=== PATIENT | male | born 1940 | race Caucasian/White ===

== ENCOUNTER → 2016-12-09 | Outpatient (CLI) | payer OTHER ==
[~2016-12-09] MED LIST: ASPI325T39 PO; ATOR-24 PO; GADAVIST IV PRN; GLUCTAB7 PO; METO50TA7 PO; OMEGCAP2 PO; PRED1SUS3 OPL; VALS160T60 PO
--- NOTE | 2016-12-09 07:47 | DIAGNOSTIC IMAGING REPORT ---
MRI OF THE BRAIN COMBO TRIGEMINAL NERVE PROTOCOL CLINICAL HISTORY: Atypical right facial pain. COMPARISON STUDY: CT scan of the paranasal sinuses dated 10/29/2013. TECHNIQUE: MRI of the brain was performed utilizing various T1 and T2-weighted sequences in the axial, sagittal, and coronal planes. Contrast-enhanced sequences were acquired following the administration of 9 cc of Gadavist. Additional high-resolution imaging was performed through the skull base both pre and post contrast to further assess the trigeminal nerves. FINDINGS: Brain parenchyma: There are age-related involutional changes noting mild patchy subcortical and periventricular microangiopathic disease. There is no hemorrhage or mass effect. There is no restricted diffusion to suggest acute ischemia. No enhancing mass lesion is identified on the postcontrast images. Ingram-white matter differentiation is preserved. No extra-axial fluid collection is seen. The cerebellar tonsils are normal in configuration. Ventricles, sulci, and cisterns: Prominent secondary to involutional change. Trigeminal nerves: The trigeminal nerves appear normal and symmetric. No abnormal enhancement is identified on the postcontrast images. Pituitary and sella: Unremarkable. Intracranial vasculature: Normal flow voids are maintained at the skull base. Orbits: The bony orbits are grossly intact. Orbital contents are normal in appearance noting bilateral ocular lens implants. Sinuses and mastoids: Clear. Calvarium: Unremarkable. Cervical cord: Partially visualized cervical spinal cord is normal in morphology and signal intensity. IMPRESSION: 1. No acute intracranial abnormal abnormality. 2. Unremarkable MRI assessment of the trigeminal nerves. Electronically signed by: Fabio Pablo M.D. 12/09/2016 7:46 AM Dictated Date/Time: 12/09/2016 7:41 AM
== END | disposition home or self-care (01) ==
LOC: C.MRI 06:12
PROVIDERS: ATTEND Psychiatry & Neurology Neurology
DX: G50.1 Atypical facial pain (principal)

== ENCOUNTER → 2017-03-19 | Outpatient (CLI) | payer OTHER ==
[~2017-03-19] MED LIST changes: -GADAVIST IV PRN
[2017-03-19 12:07] LABS: BASO % 0.6 %; BASO ABS # 0.05 K/uL (0-0.2); COMPLETE YES; EOS % 4.5 %; HEMATOCRIT 42.4 % (42-52); IG% 0.5 %; LYMPH % 29.5 %; LYMPH ABS # 2.43 K/uL (1.2-3.4); MEAN CELL VOLUME 89.6 fL (80-100); MEAN CORPUSCULAR HEMOGLOBIN 29.6 pg (25-34); MEAN PLATELET VOLUME 9.9 fL (7.4-10.4); MONO % 10.3 %; NEUT % 54.6 %; PLATELET COUNT 244 K/uL (130-400); RED BLOOD COUNT 4.73 M/uL (4.7-6.1); WHITE BLOOD COUNT 8.24 K/uL (4.8-10.8)
[2017-03-19 12:30] LABS: ESTIMATED AVERAGE GLUCOSE 117 mg/dl; HA1C FLAG Normal (Normal)
[2017-03-19 13:00] LABS: BLOOD UREA NITROGEN 22 mg/dl (7-18); BUN/CREATININE RATIO 24.9 (10-20); CALCIUM 9.1 mg/dl (8.5-10.1); CARBON DIOXIDE 33 mmol/L (21-32); CHLORIDE 102 mmol/L (98-107); CREATININE 0.89 mg/dl (0.60-1.40); GLUCOSE 95 mg/dl (70-99); SODIUM 140 mmol/L (136-145)
== END | disposition home or self-care (01) ==
LOC: C.LABBFT 09:17
PROVIDERS: ATTEND Internal Medicine Geriatric Medicine
DX: I10 Essential (primary) hypertension (principal); R73.9 Hyperglycemia, unspecified; M19.90 Unspecified osteoarthritis, unspecified site

== ENCOUNTER → 2018-06-10 | Outpatient (CLI) | payer OTHER ==
[~2018-06-10] MED LIST changes: -METO50TA7 PO; +METO50TA8 PO
[2018-06-10 12:34] LABS: BASO % 0.6 %; BASO ABS # 0.05 K/uL (0-0.2); EOS % 5.3 %; EOS ABS # 0.43 K/uL (0-0.5); HEMATOCRIT 41.8 % (42-52); HEMOGLOBIN 14.1 g/dL (14.0-18.0); IG# 0.02 K/uL (0.00-0.02); LYMPH ABS # 2.53 K/uL (1.2-3.4); MEAN CELL VOLUME 88.6 fL (80-100); MEAN CORPUSCULAR HEMOGLOBIN 29.9 pg (25-34); MEAN CORPUSCULAR HGB CONC 33.7 g/dl (32-36); MEAN PLATELET VOLUME 10.4 fL (7.4-10.4); MONO % 8.3 %; MONO ABS # 0.68 K/uL (0.11-0.59); NEUT % 54.6 %; NEUT ABS # 4.46 K/uL (1.4-6.5); PLATELET COUNT 242 K/uL (130-400); RED CELL DISTRIBUTION WIDTH CV 13.3 % (11.5-14.5); RED CELL DISTRIBUTION WIDTH SD 43.5 fL (36.4-46.3); WHITE BLOOD COUNT 8.17 K/uL (4.8-10.8)
[2018-06-10 13:02] LABS: ALBUMIN 3.7 gm/dl (3.4-5.0); ALKALINE PHOSPHATASE 69 U/L (45-117); ALT/SGPT 23 U/L (12-78); AST/SGOT 22 U/L (15-37); BLOOD UREA NITROGEN 28 mg/dl (7-18); CALCIUM 9.1 mg/dl (8.5-10.1); CARBON DIOXIDE 31 mmol/L (21-32); CHOLESTEROL 81 mg/dl (0-200); CREATININE 0.99 mg/dl (0.60-1.40); GLUCOSE 92 mg/dl (70-99); LDL CHOLESTEROL CALCULATED 32 mg/dl; POTASSIUM 4.3 mmol/L (3.5-5.1); SODIUM 136 mmol/L (136-145); TOTAL PROTEIN 6.9 gm/dl (6.4-8.2)
== END | disposition home or self-care (01) ==
LOC: C.LABBFT 09:42
PROVIDERS: ATTEND Internal Medicine Geriatric Medicine
DX: D47.2 Monoclonal gammopathy (principal); I25.10 Atherosclerotic heart disease of native coronary artery without angina pectoris; I10 Essential (primary) hypertension; E78.5 Hyperlipidemia, unspecified; R73.9 Hyperglycemia, unspecified; G50.0 Trigeminal neuralgia

== ENCOUNTER 2021-01-01 07:47 | Observation (INO) ==
[2021-01-01] MEDS ORDERED: fentaNYL citrate 100 MCG/2 ML VIAL IV STA (07:52)
[2021-01-01] MEDS ORDERED: MIDAZOLAM HCL 5 MG/ML 1 ML VIAL IV STA (07:52)
[2021-01-01] MEDS ORDERED: ONDANSETRON INJ 2 MG/ML 2 ML VIAL IV STA (07:52)
[2021-01-01] MEDS ORDERED: SODIUM CHLORIDE 0.9% 500 ML IV ONE (07:52)
[2021-01-01] MEDS ORDERED: MIDAZOLAM HCL 1 MG/ML 2ML VIAL ONE (07:59)
[2021-01-01] MEDS ORDERED: HYDROmorphone INJ 0.5 MG/0.5 ML SYR IV PRN ×2 (08:40→11:16)
[2021-01-01] MEDS ORDERED: ACETAMINOPHEN 1,000 MG/100 ML VIAL IV STA (08:40)
--- NOTE | 2021-01-01 08:40 | Emergency Department Note ---
ED Visit Note PROCEDURE NOTE: Closed reduction left ankle fracture/dislocation Patient is an 80-year-old male brought to the emergency department by ambulance for evaluation of a left ankle injury with obvious deformity. I was asked by Dr. Ko to perform closed reduction of the left ankle fracture/dislocation. Conscious sedation was administered by Dr. Ko, please refer to his separate notes for further details. When patient was adequately sedated, the lower leg was stabilized then the ankle grasped, axial traction applied, with gentle slide medially. The deformity was immediately reduced, but ankle was still grossly unstable. Great care was taken to try to stabilize the fracture while Orthoglas splint was applied, both a sugar tong and stirrup splint were applied. Ankle was held in dorsiflexion, with pressure held medially and laterally until the Ortho-Glass was set. Post reduction x-rays were obtained, still noting displaced fractures of the medial and lateral malleolus. Splint placement was verified by me and was satisfactory. Patient remained neurovascularly intact. Patient tolerated the procedure well. .
--- NOTE | 2021-01-01 08:41 | Emergency Department Note ---
History of Present Illness General Chief complaint: Fall Time Seen by Provider: 01/01/21 07:48 Source: patient, EMS, RN notes reviewed and old records reviewed Mode of arrival: EMS Limitations: no limitations History of Present Illness Provider complaint: fall, ankle pain Onset (ago): hour(s) less than 1 Location: lower extremity and left Radiation: non-radiation Severity: mild Pain Consistency: + now resolved Maximum Pain Intensity: 0 Current Pain Intensity: 0 Quality: + aching Relieved By: + immobilization Exacerbated By: + movement Associated symptoms: no chest pain, no fever/chills, no headaches, no nausea/vomiting, no shortness of breath and no weakness Treatments prior to arrival: none This is an 80-year-old male who presents emergency department via ambulance. The patient reports he was walking on ice when he slipped. He is complaining of left ankle pain which is also grossly deformed. The patient reports he has never broken a bone before however he has had knee surgery performed by [facility]. He reports he has not taken anything for the pain. He denies hitting his head or any other injury. He reports movement makes the pain worse however immobilization makes it better. Home Medications Medication Instructions Recorded Confirmed Type sljpolzqibz-[id number]-[id number] 1 cap PO DAILY cap 04/20/19 01/01/21 History supplement#13 348 mg-300 mg capsule aspirin 325 mg tablet,delayed 325 mg PO DAILY tab 07/07/19 01/01/21 History release omega-3 acid ethyl esters 1 gram 1 cap PO BID cap 07/07/19 01/01/21 History capsule valsartan 160 1 tab PO DAILY #90 tab 01/14/20 01/01/21 Rx mg-hydrochlorothiazide 25 mg tablet gabapentin 300 mg capsule 600 mg PO QID cap 01/17/20 01/01/21 History atorvastatin 40 mg tablet 40 mg PO DAILY #90 tab 03/03/20 01/01/21 Rx nitroglycerin 0.4 mg sublingual 0.4 mg SL Q5M PRN #25 tab 07/28/20 01/01/21 Rx tablet amoxicillin 500 mg capsule 2,000 mg PO .COMPLEX #4 cap 10/02/20 01/01/21 Rx metoprolol tartrate 50 mg tablet 50 mg PO DAILY #90 tab 11/22/20 01/01/21 Rx mirabegron [Myrbetriq] 0 mg PO QAM 01/01/21 01/01/21 History Allergies Allergy/AdvReac Type Severity Reaction Status Date / Time lisinopril AdvReac Mild Cough Verified 01/01/21 12:27 Past Med/Surg History Medical History (Updated 01/02/21 @ 06:50 by Yasir Ko MD) Back pain Benign enlargement of prostate CAD (coronary artery disease) HTN (hypertension) Hyperglycemia Injury of left hand MGUS (monoclonal gammopathy of unknown significance) Peripheral neuropathy Rosacea Trigeminal neuralgia Surgical History History of carpal tunnel release of both wrists 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 with WALLER graft S/P inguinal hernia repair S/P knee replacement S/P tonsillectomy Family History Mother Hypertension Heart disease Diabetes Brother Parkinson disease Father Heart disease Social History Smoking Status: Never smoker Do You Dip or Chew Tobacco: No; Hx Alcohol Use: Yes Alcohol type: beer Hx Substance Use: No Preferred Language: Bel[place]an Communication Ability: Effective Visual Impairment: No Limitations Hearing Ability: Normal Postie Required: No Beliefs That Will Affect Care: None marital status: Current Living Situation: Spouse and Family Current Living Situation Comment: Daughter current occupational status: retired Other Information That Helps Us Care for You: No Feels Safe at Home: Yes Safety Concerns: Feels Safe At This Time caffeine: No Seatbelt Use: always Sunscreen Use: Yes Assistive Devices: Walker Review of Systems A total of 10 systems reviewed and were otherwise negative Physical Exam Vital Signs Vital Signs - 24 hr 01/01/21 07:54 01/01/21 08:00 01/01/21 08:05 Temperature 36.5 C Temperature Source Oral Pulse Rate 80 89 Pulse Rate [Apical] Pulse Rhythm Regular Pulse Rhythm [Apical] Pulse Strength Normal Pulse Strength [Apical] Respiratory Rate 20 24 Respiratory Effort / Characteristics Non-Labored Spontaneous Non-Labored Spontaneous Non-Labored Spontaneous Respiratory Depth Normal Deep Respiratory Pattern Regular Regular Regular Blood Pressure 174/83 H Blood Pressure [Right Arm] 174/83 H 177/82 H Blood Pressure Mean 113 Blood Pressure Mean [Right Arm] Blood Pressure Position Sitting Blood Pressure Position [Right Arm] Pulse Oximetry 93 95 90 Oxygen Delivery Method Room Air Room Air Nasal Cannula Oxygen Flow Rate 6 Sepsis Recent Fever Within 48 Hours No Sepsis New/Unexplained Change in Mental Status No Sepsis Action Taken by Nursing No Action Required End Tidal CO2 (18-54mmHg) 42 43 01/01/21 08:10 01/01/21 08:15 01/01/21 08:20 Temperature Temperature Source Pulse Rate 75 66 70 Pulse Rate [Apical] Pulse Rhythm Pulse Rhythm [Apical] Pulse Strength Pulse Strength [Apical] Respiratory Rate 14 12 12 Respiratory Effort / Characteristics Spontaneous Spontaneous Spontaneous Respiratory Depth Normal Normal Normal Respiratory Pattern Regular Regular Regular Blood Pressure Blood Pressure [Right Arm] 149/80 H 143/77 H 135/72 Blood Pressure Mean Blood Pressure Mean [Right Arm] Blood Pressure Position Blood Pressure Position [Right Arm] Pulse Oximetry 96 98 98 Oxygen Delivery Method Nasal Cannula Nasal Cannula Room Air Oxygen Flow Rate 2 Sepsis Recent Fever Within 48 Hours Sepsis New/Unexplained Change in Mental Status Sepsis Action Taken by Nursing End Tidal CO2 (18-54mmHg) 36 38 43 01/01/21 08:25 01/01/21 09:00 01/01/21 09:08 Temperature Temperature Source Pulse Rate 68 65 Pulse Rate [Apical] 65 Pulse Rhythm Regular Pulse Rhythm [Apical] Regular Pulse Strength Pulse Strength [Apical] Normal Respiratory Rate 20 18 18 Respiratory Effort / Characteristics Non-Labored Spontaneous Non-Labored Spontaneous Respiratory Depth Normal Normal Respiratory Pattern Regular Regular Blood Pressure Blood Pressure [Right Arm] 140/73 135/80 Blood Pressure Mean Blood Pressure Mean [Right Arm] 98 Blood Pressure Position Blood Pressure Position [Right Arm] Sitting Pulse Oximetry 95 96 Oxygen Delivery Method Room Air Room Air Room Air Oxygen Flow Rate Sepsis Recent Fever Within 48 Hours Sepsis New/Unexplained Change in Mental Status Sepsis Action Taken by Nursing End Tidal CO2 (18-54mmHg) 42 01/01/21 10:30 Temperature Temperature Source Pulse Rate Pulse Rate [Apical] 68 Pulse Rhythm Pulse Rhythm [Apical] Regular Pulse Strength Pulse Strength [Apical] Normal Respiratory Rate 18 Respiratory Effort / Characteristics Non-Labored Spontaneous Respiratory Depth Normal Respiratory Pattern Regular Blood Pressure Blood Pressure [Right Arm] 134/75 Blood Pressure Mean Blood Pressure Mean [Right Arm] 94 Blood Pressure Position Blood Pressure Position [Right Arm] Sitting Pulse Oximetry 95 Oxygen Delivery Method Room Air Oxygen Flow Rate Sepsis Recent Fever Within 48 Hours Sepsis New/Unexplained Change in Mental Status Sepsis Action Taken by Nursing End Tidal CO2 (18-54mmHg) VITAL SIGNS - Vital signs and nursing notes were reviewed. GENERAL - 80-year-old male appearing stated age who is in no acute distress. Communicates well with provider and answers questions appropriately. SKIN - Without rashes. HEAD - NC/AT. EYES - PERRL with EOMI bilaterally. Sclera anicteric. Palpebral conjunctiva pink and moist with no injection noted. EARS - No deformities of external structures noted on gross examination bilaterally. NOSE - Midline and without cyanosis. No epistaxis or purulent drainage noted. Septum midline without deviation or septal hematoma noted. MOUTH/OROPHARYNX - Without perioral cyanosis. Buccal mucosa pink and moist and without leukoplakia. Tongue midline with equal elevation of palate bilaterally. No tonsillar hypertrophy, erythema, or exudates noted. dentition noted. NECK - Neck with FROM. Supple to palpation. lymphadenopathy noted. No nuchal r igidity. LUNGS - Chest wall symmetric without accessory muscle use, intercostals retractions, or central cyanosis. Normal vesicular breath sounds CTA B/L. No wheezes, rales, or rhonchi appreciated. CARDIAC - RRR with S1/S2. No murmur, rubs, or gallops appreciated. ABDOMEN - Abdominal contour without pulsations or visible masses. BS normoactive all four quadrants. No tenderness, palpable masses, hepatosplenomegaly, or ascites noted. EXTREMITIES - Obvious deformity to left ankle. +3/5 radial, posterior tibial, and dorsalis pedis pulses palpated throughout. +5/5 strength noted in UE/LE katie aterally. NEUROLOGIC - Cranial nerves II through XII grossly intact. Sensory intact to light touch throughout. Patellar reflexes +2/4. PSYCH - A&Ox3 and cooperates fully with examiner. Pt is very pleasant and interacts well with examiner. Procedures Procedural Sedation Indication: fracture/dislocation reduction (I performed the procedure: total time 15 minutes) ASA Class: II Time of Last PO Intake: 07:00 Preparation: school bus monitor applied, pulse oximeter, capnometry used, supplemental O2 applied, reversal agents at bedside, suction/airway equipment at bedside and IV secured Fentanyl: IV Fentanyl dose (mcg): 50 Midazolam dose (mg): 1 Dosage Used (mgs): 2 Patient Tolerated Procedure: well and no complications Complications: none Course Administered Medications Aspirin (Aspirin 325 Mg Ectab) 325 mg PO DAILY [facility] Stop: 01/31/21 10:59 Last Admin: 01/01/21 12:21 Dose: Not Given Documented by: [id number] Atorvastatin Calcium (Atorvastatin 40 Mg Tab) 40 mg PO DAILY [facility] Stop: 01/31/21 10:59 Last Admin: 01/01/21 12:21 Dose: Not Given Documented by: [id number] Docusate Sodium (Docusate Sodium 100 Mg Cap) 100 mg PO BID [facility] Stop: 01/31/21 20:59 Last Admin: 01/01/21 20:27 Dose: 100 mg Documented by: [id number] Gabapentin (Gabapentin 300 Mg Cap) 600 mg PO QID [facility] Stop: 01/31/21 12:59 Last Admin: 01/01/21 20:26 Dose: 600 mg Documented by: [id number] Admin: 01/01/21 16:39 Dose: Not Given Documented by: [id number] Admin: 01/01/21 14:03 Dose: Not Given Documented by: [id number] Cefazolin Sodium (Ancef 2000mg) 2,000 mg in 15 mls @ 3.75 mls/min IV Q8H [facility]; Protocol Stop: 01/02/21 10:03 Last Admin: 01/02/21 01:03 Dose: 3.75 mls/min Documented by: [id number] Metoprolol Tartrate (Metoprolol Tartrate 50 Mg Tab) 50 mg PO DAILY [facility] Stop: 01/31/21 10:59 Last Admin: 01/01/21 12:21 Dose: Not Given Documented by: [id number] Sennosides (Senna 8.6 Mg Tab) 17.2 mg PO HS [facility] Stop: 01/31/21 20:59 Last Admin: 01/01/21 20:27 Dose: 17.2 mg Documented by: [id number] Discontinued Medications Bacitracin (Bacitracin Inj 50,000 Unit Vial) Confirm Administered Dose 50,000 units .ROUTE .STK-MED ONE Stop: 01/01/21 17:08 Last Admin: 01/01/21 18:06 Dose: 50,000 units Documented by: [id number] Fentanyl Citrate (Fentanyl Citrate 100 Mcg/2 Ml Vial) 100 mcg IV NOW STA Stop: 01/01/21 07:53 Last Admin: 01/01/21 08:04 Dose: 50 mcg Documented by: [id number] Sodium Chloride (Nss) 500 mls @ 999 mls/hr IV .Q31M ONE Stop: 01/01/21 08:22 Last Infusion: 01/01/21 08:23 Dose: 0 mls/hr Documented by: [id number] Admin: 01/01/21 08:03 Dose: 999 mls/hr Documented by: [id number] Acetaminophen (Ofirmev) 1,000 mg in 100 mls @ 400 mls/hr IV NOW STA Stop: 01/01/21 08:54 Last Infusion: 01/01/21 10:07 Dose: 0 mls/hr Documented by: [id number] Admin: 01/01/21 09:42 Dose: 400 mls/hr Documented by: [id number] Sodium Chloride (Nss 1000ml) 1,000 mls @ 80 mls/hr IV .[id number] [facility] Stop: 01/31/21 11:15 Last Infusion: 01/01/21 20:02 Dose: 0 mls/hr Documented by: [id number] Admin: 01/01/21 12:45 Dose: 80 mls/hr Documented by: [id number] Cefazolin Sodium (Ancef 2000mg) 2,000 mg in 15 mls @ 3.75 mls/min IV PREOP ONE Stop: 01/01/21 17:03 Last Admin: 01/01/21 20:00 Dose: Not Given Documented by: [id number] Sodium Chloride (Nss 1000ml) 1,000 mls @ 100 mls/hr IV .Q10H GOLD Stop: 01/02/21 06:00 Last Infusion: 01/02/21 05:32 Dose: 0 mls/hr Documented by: [id number] Admin: 01/01/21 20:01 Dose: 100 mls/hr Documented by: [id number] Midazolam HCl (Midazolam Hcl 5 Mg/Ml 1 Ml Vial) 2 mg IV NOW STA Stop: 01/01/21 07:53 Last Admin: 01/01/21 08:06 Dose: 2 mg Documented by: [id number] Midazolam HCl (Midazolam Hcl 1 Mg/Ml 2ml Vial) Confirm Administered Dose 2 mg .ROUTE .STK-MED ONE Stop: 01/01/21 08:00 Last Admin: 01/01/21 08:47 Dose: Not Given Documented by: [id number] Ondansetron HCl (Ondansetron Inj 2 Mg/Ml 2 Ml Vial) 4 mg IV NOW STA Stop: 01/01/21 07:53 Last Admin: 01/01/21 08:03 Dose: 4 mg Documented by: [id number] Medical Decision Making Differential Diagnosis Fracture, subluxation, dislocation, contusion, ligamentous injury, neurovascular, compartment syndrome, rhabdomyolysis, as well as other pathologies. Medical Records Attestation: I reviewed the patient's medical records. Home Medications Current Medication List: was personally reviewed by me Laboratory Data Attestation: I reviewed the patient's lab results. Result diagrams: 01/02/21 06:02 01/01/21 07:55 Lab Results 01/01/21 01/01/21 01/01/21 Range/Units 07:55 07:55 09:10 WBC 7.48 (4.8-10.8) K/uL RBC 4.59 L (4.7-6.1) M/uL Hgb 13.9 L (14.0-18.0) g/dL Hct 41.1 L (42-52) % MCV 89.5 (80-100) fL MCH 30.3 (25-34) pg MCHC 33.8 (32-36) g/dL RDW Std Deviation 43.0 (36.4-46.3) fL RDW Coeff of Agustín 13.2 (11.5-14.5) % Plt Count 248 (130-400) K/uL MPV 10.3 (7.4-10.4) fL Immature Gran % (Auto) 0.3 % Neut % (Auto) 58.2 % Lymph % (Auto) 25.0 % [place] % (Auto) 9.8 % Eos % (Auto) 6.3 % Baso % (Auto) 0.4 % Neut # (Auto) 4.36 (1.4-6.5) K/uL Lymph # (Auto) 1.87 (1.2-3.4) K/uL [place] # (Auto) 0.73 H (0.11-0.59) K/uL Eos # (Auto) 0.47 (0-0.5) K/uL Baso # (Auto) 0.03 (0-0.2) K/uL Immature Gran # (Auto) 0.02 (0.00-0.02) K/uL Sodium 141 (136-145) mmol/L Potassium 3.7 (3.5-5.1) mmol/L Chloride 104 (98-107) mmol/L Carbon Dioxide 31 (21-32) mmol/L Anion Gap 6.0 (3-11) BUN 26 H (7-18) mg/dl Creatinine 0.97 (0.6-1.4) mg/dl Est Cr Clr Drug Dosing 65.1 ml/min Est GFR ( Amer) 85.1 Est GFR (Non-Af Amer) 73.4 BUN/Creatinine Ratio 26.2 H (10-20) Glucose 94 (70-99) mg/dl Calcium 9.5 (8.5-10.1) mg/dl Total Bilirubin 0.4 (0.2-1) mg/dl AST 22 (15-37) U/L ALT 37 (12-78) U/L Alkaline Phosphatase 91 (45-117) U/L Total Protein 7.3 (6.4-8.2) gm/dl Albumin 3.7 (3.4-5.0) gm/dl Globulin 3.6 (2.5-4.0) gm/dl Albumin/Globulin Ratio 1.0 (0.9-2) Lipase 158 (73-393) U/L COVID-19 Eval Order Covid19 [facility] SARS-CoV-2, RNA, NAAT (NEGATIVE) 01/01/21 Range/Units 09:10 WBC (4.8-10.8) K/uL RBC (4.7-6.1) M/uL Hgb (14.0-18.0) g/dL Hct (42-52) % MCV (80-100) fL MCH (25-34) pg MCHC (32-36) g/dL RDW Std Deviation (36.4-46.3) fL RDW Coeff of Agustín (11.5-14.5) % Plt Count (130-400) K/uL MPV (7.4-10.4) fL Immature Gran % (Auto) % Neut % (Auto) % Lymph % (Auto) % [place] % (Auto) % Eos % (Auto) % Baso % (Auto) % Neut # (Auto) (1.4-6.5) K/uL Lymph # (Auto) (1.2-3.4) K/uL [place] # (Auto) (0.11-0.59) K/uL Eos # (Auto) (0-0.5) K/uL Baso # (Auto) (0-0.2) K/uL Immature Gran # (Auto) (0.00-0.02) K/uL Sodium (136-145) mmol/L Potassium (3.5-5.1) mmol/L Chloride (98-107) mmol/L Carbon Dioxide (21-32) mmol/L Anion Gap (3-11) BUN (7-18) mg/dl Creatinine (0.6-1.4) mg/dl Est Cr Clr Drug Dosing ml/min Est GFR ( Amer) Est GFR (Non-Af Amer) BUN/Creatinine Ratio (10-20) Glucose (70-99) mg/dl Calcium (8.5-10.1) mg/dl Total Bilirubin (0.2-1) mg/dl AST (15-37) U/L ALT (12-78) U/L Alkaline Phosphatase (45-117) U/L Total Protein (6.4-8.2) gm/dl Albumin (3.4-5.0) gm/dl Globulin (2.5-4.0) gm/dl Albumin/Globulin Ratio (0.9-2) Lipase (73-393) U/L COVID-19 Eval Order SARS-CoV-2, RNA, NAAT NEGATIVE (NEGATIVE) Imaging Data Radiologist's Impression: [facility], [place] [phone] XRay Report Patient: SANDRA ELDRIDGE Admit Date: 01/01/21 MR#: [id number] Address1: [address] [place] [address] Acct ID:[id number] Address2: Date: [address] [facility] Zip: [place] [address] Age: 80 Location: ED Sex: M Room/Bed: Att Phy: Diagnosis: FALL Dora Phy: Yunier Rangel III, MD Service Date: 01/01/21 Fam Phy: Interpreting Phy: Tiago Burch Admit Phy: Ordering Phy: Yasir Ko MD cc: ~ XR ankle LT min 3V routine, XR tibia fibula LT 2V HISTORY: 80 years-old Male Pt c/o left ankle pain acute fracture of the left ankle COMPARISON: None TECHNIQUE: 3 views of the left ankle with 2 views of the left tibia and fibula FINDINGS: ANKLE: Acute fractures of the medial and lateral malleoli. The lateral malleolus fracture fragment is displaced laterally 9 mm. The medial malleolar fracture fragment is displaced laterally 7 mm. Pathologic widening at the distal tibiofibular syndesmosis. There is equivocal fracture of the posterior malleolus. Moderate soft tissue swelling. Spurring of the calcaneus. Overlying casting material limits the study. TIBIA/FIBULA: Left knee total joint arthroplasty. Acute fractures of the medial and lateral malleoli. Surgical clips project over the medial tissues. No additional acute fracture or dislocation. IMPRESSION: 1. Acute displaced fractures of the medial and lateral malleoli with equivocal posterior malleolus fracture. 2. Pathologic widening of the distal tibiofibular syndesmosis. ACT 112: Negative or not required by law. The above report was generated using voice recognition software. It may contain grammatical, syntax or spelling errors. Electronically signed by: Mason Burch M.D. 01/01/2021 8:45 AM Dictated: 01/01/21829 Transcribed: 01/01/21830 ECG Data Attestation: I personally reviewed and interpreted this ECG as follows: Indication: + other Rate (beats per minute): 68 Rhythm: + sinus rhythm ECG Intervals/blocks: + Normal QT-c (450) ECG [place]: + Normal ECG ST segments: no ST depression and no ST elevation ECG Findings: + PACs Comparison ECG Date: from (03/26/2014) MDM Narrative Patient was seen and evaluated as above in room B2. Review was performed of nursing notes and vital signs. I did review pertinent previous visits and patient history. After obtaining a thorough history and physical examination the above work up was performed. This is an 80-year-old male who presents to the emergency department with an obvious dislocation of his ankle. Due to the emergent nature, conscious sedation was emergently performed to get the ankle into better alignment. Please see Reba Johnson's notes for reduction. Despite the reduction the ankle still needs further alignment. Because of this I did discuss the case with [facility] who requested that the patient be admitted to the hospital. I did discuss all my findings with the patient's who is in agreement with the treatment plan along with the patient. Conscious sedation was performed as above. An order was placed for continuous cardiac monitoring. The monitor shows a rate of 74 with Normal Sinmus rhythm. The patient was evaluated during a period of high volume and high acuity while the hospital was at overcapacity during the global COVID-19 pandemic, and that diagnosis was suspected/considered upon their initial presentation. Their evaluation, treatment and testing was consistent with current guidelines for patients who present with complaints or symptoms that may be related to COVID- 19. Impression & Plan Ankle fracture, left, Dislocation of ankle, left, closed Discharge Plan Visit Data Chief Complaint: Fall ED Provider: Yasir Ko Discharge Problem: Ankle fracture, left, Dislocation of ankle, left, closed Patient Disposition: Admitted As Inpatient Discharge Instructions Interventions: ED Discharge Assessment Last Done: 01/01/21 11:37 Discharge Problem: Ankle fracture, left Qualifiers: Encounter type: initial encounter Fracture type: closed Qualified Code(s): S82.892A - Other fracture of left lower leg, initial encounter for closed fracture Dislocation of ankle, left, closed Qualifiers: Encounter type: initial encounter Qualified Code(s): S93.05XA - Dislocation of left ankle joint, initial encounter
--- NOTE | 2021-01-01 08:42 | Emergency Department Note ---
ED Visit Note The planned sedation has been discussed with the patient. Informed Consent was obtained. I have identified the patient, determined the appropriateness of sedation and have assessed the patient immediately prior to the procedure. All medicine(s) and interventions are by my order. .
--- NOTE | 2021-01-01 08:42 | Emergency Department Note ---
ED Visit Note On clinical assessment, the patient appears to have tolerated the sedation without complications. Patient is recovering as anticipated. Patient will continue to be monitored by nursing and may be discharged when sedation discharge criteria are met per below protocol. Upon Completions of procedure up to 15 minutes continue every 5 minute vital s igns and the P.A.R. score; then discharge to a Phase I or Fast Track to Phase II per the following guidelines: * Discharge Patient to appropriate Phase II area if PAR is 8 or greater or return to pre- procedure baseline. The post - procedure orders will be as directed. * If PAR score is less than 8 or not return to pre-procedure baseline then patient will follow Phase I monitoring till PAR is reached for Phase II. The Phase I may be done in procedure room or may call to secure a Phase I area. * If naloxone or flumazenil are used for reversal, hold in Phase I for continued monitoring from when last reversal dose was given for a minimum of 60 minutes or longer pending the nurse and/or physician discretion of patient condition before discharge to Phase II. Please call the Sedation Physician to re-evaluate and complete post-note for discharge to Phase II area. Do NOT discharge from procedure sedation or Phase 1 until post- sedation evaluation note is complete by procedure /sedation MD Sedation Discharge Instructions to be given to the patient at discharge to home. .
[2021-01-01 08:45] LABS: Basophils # (auto) 0.03 K/uL (0-0.2); Basophils % (auto) 0.4 %; Eosinophils # (auto) 0.47 K/uL (0-0.5); Eosinophils % (auto) 6.3 %; Hematocrit (blood only) 41.1 % (42-52); Hemoglobin 13.9 g/dL (14.0-18.0); Immature Granulocytes # (auto) 0.02 K/uL (0.00-0.02); Immature Granulocytes % (auto) 0.3 %; Lymphocytes # (auto) 1.87 K/uL (1.2-3.4); Mean Corpuscular Hemoglobin 30.3 pg (25-34); Mean Corpuscular Hgb Conc 33.8 g/dL (32-36); Mean Corpuscular Volume 89.5 fL (80-100); Mean Platelet Volume 10.3 fL (7.4-10.4); Monocytes # (auto) 0.73 K/uL (0.11-0.59); Monocytes % (auto) 9.8 %; Neutrophils # (auto) 4.36 K/uL (1.4-6.5); Neutrophils % (auto) 58.2 %; Platelet Count 248 K/uL (130-400); RDW Coefficient of Variation 13.2 % (11.5-14.5); Red Blood Count 4.59 M/uL (4.7-6.1); White Blood Count 7.48 K/uL (4.8-10.8)
--- NOTE | 2021-01-01 08:46 | XRay Report ---
XR ankle LT min 3V routine, XR tibia fibula LT 2V HISTORY: 80 years-old Male Pt c/o left ankle pain acute fracture of the left ankle COMPARISON: None TECHNIQUE: 3 views of the left ankle with 2 views of the left tibia and fibula FINDINGS: ANKLE: Acute fractures of the medial and lateral malleoli. The lateral malleolus fracture fragment is displa дмитрий laterally 9 mm. The medial malleolar fracture fragment is displaced laterally 7 mm. Pathologic wi dening at the distal tibiofibular syndesmosis. There is equivocal fracture of the posterior malleolus . Moderate soft tissue swelling. Spurring of the calcaneus. Overlying casting material limits the sam dy. TIBIA/FIBULA: Left knee total joint arthroplasty. Acute fractures of the medial and lateral malleoli. Surgical clip s project over the medial tissues. No additional acute fracture or dislocation. IMPRESSION: 1. Acute displaced fractures of the medial and lateral malleoli with equivocal posterior malleolus fr acture. 2. Pathologic widening of the distal tibiofibular syndesmosis. ACT 112: Negative or not required by law. The above report was generated using voice recognition software. It may contain grammatical, syntax o r spelling errors. Electronically signed by: Mason Burch M.D. 01/01/2021 8:45 AM
[2021-01-01 09:03] LABS: Albumin Level 3.7 gm/dl (3.4-5.0); BUN Creatinine Ratio 26.2 (10-20); Calcium 9.5 mg/dl (8.5-10.1); Creatinine Clr Calc Pharmacy 65.1 ml/min; Est GFR (African American) 85.1; Est GFR (Non-African American) 73.4; Potassium 3.7 mmol/L (3.5-5.1)
[2021-01-01 09:05] LABS: Bilirubin,Total 0.4 mg/dl (0.2-1); Globulin 3.6 gm/dl (2.5-4.0); Total Protein 7.3 gm/dl (6.4-8.2)
--- NOTE | 2021-01-01 10:42 | History & Physical Report ---
Date of Service January 01, 2021 Assessment & Plan (1) Ankle fracture, left: Admit for pain control, orthopedic surgery evaluation-plan for surgery this afternoon Keep n.p.o. In splint currently after closed reduction under sedation in the ER Not currently complaining of any pain but can have IV Dilaudid 0.25 mg every 1 hours as needed Continue gentle IV fluids with normal saline at 80 mL's per hour while n.p.o. (2) Dislocation of ankle, left, closed: As above (3) CAD (coronary artery disease): Status post CABG in 2006, stable for quite some time. As per HPI, exercises for 1 hour on the treadmill and stationary bike, 5 days/week without any difficulties Continue aspirin, metoprolol, atorvastatin, valsartan/HCTZ-give first doses now of all but the valsartan HCT prior to surgery ECG without acute ischemia and no chest pain at this time No need to be on telemetry (4) S/P CABG (coronary artery bypass graft): As above (5) Trigeminal neuralgia: Not currently an issue (6) Rosacea: Noted but not currently on medication for this (7) Peripheral neuropathy: Continue home gabapentin (8) MGUS (monoclonal gammopathy of unknown significance): Stable, follows with PCP as an outpatient (9) HTN (hypertension): Blood pressures well controlled Continue home valsartan HCT with first dose to start tomorrow Continue home metoprolol now in the perioperative setting (10) Dyslipidemia: Continue atorvastatin (11) Benign enlargement of prostate: Noted, watch for urinary retention (12) Impaired fasting glucose: Hemoglobin A1c in the last few months was 5.4% Follow daily glucose checks and instigate sliding scale NovoLog if elevated (13) Urinary incontinence: Continue home Myrbetriq in the morning Watch for urinary retention (14) DVT prophylaxis: SCDs for now, will likely start Lovenox postoperatively when okay with orthopedic surgery Disposition-admit to medical/surgical floor, expected least a 2 midnight stay DNR/DNI as per discussion with patient. History of Present Illness Chief Complaint: Fall, ankle pain Primary Care Provider: Yunier Rangel MD This patient is an 80-year-old male with history of CAD status post two-vessel CABG in 2006, MGUS, HTN, hyperlipidemia, impaired fasting glucose, and urinary incontinence, who was walking out to his car this morning and slipped on some ice and fell onto his left ankle underneath him. He denies any other injuries or loss of consciousness. He did not have lightheadedness and did not hit his head. He denies preceding chest pain or shortness of breath. In fact, he was already at the gym this morning for 1 hour starting at 5 AM 30 minutes on the treadmill and 30 minutes on the bicycle which he does 5 days a week without any difficulty. He has not been sick otherwise, denies fevers or chills, denies chest pains or shortness of breath, denies cough, denies abdominal pains, nausea/vomiting/diarrhea/constipation, denies any urinary issues other than his urinary incontinence for which he sees urology. Denies any joint pains elsewhere. In the ER, he was found to have a bimalleolar fracture and ankle dislocation which was reduced under sedation in the ER. Orthopedics was consulted and recommended surgery. ECG was without acute ischemic changes and laboratory values were reviewed and otherwise normal. Vital signs were stable. He will be admitted for urgent ankle surgery. From a medical standpoint, he can easily achieve at least 4 METS which he does 5 days a week at the gym without any chest pain or shortness of breath. He is at average perioperative cardiovascular risk for this intermediate risk procedure and should proceed with surgery as he desires. Allergies Allergy/AdvReac Type Severity Reaction Status Date / Time lisinopril AdvReac Cough Verified 01/01/21 09:08 Home Medications Medication Instructions Recorded Confirmed Type pnxrwolzlns-kwzbxkltqdc-nhondjl 1 cap PO DAILY cap 04/20/19 01/01/21 History supplement#13 348 mg-300 mg capsule aspirin 325 mg tablet,delayed 325 mg PO DAILY tab 07/07/19 01/01/21 History release omega-3 acid ethyl esters 1 gram 1 cap PO BID cap 07/07/19 01/01/21 History capsule valsartan 160 1 tab PO DAILY #90 tab 01/14/20 01/01/21 Rx mg-hydrochlorothiazide 25 mg tablet gabapentin 300 mg capsule 600 mg PO QID cap 01/17/20 01/01/21 History atorvastatin 40 mg tablet 40 mg PO DAILY #90 tab 03/03/20 01/01/21 Rx nitroglycerin 0.4 mg sublingual 0.4 mg SL Q5M PRN #25 tab 07/28/20 01/01/21 Rx tablet amoxicillin 500 mg capsule 2,000 mg PO .COMPLEX #4 cap 10/02/20 01/01/21 Rx metoprolol tartrate 50 mg tablet 50 mg PO DAILY #90 tab 11/22/20 01/01/21 Rx mirabegron [Myrbetriq] 0 mg PO QAM 01/01/21 01/01/21 History Past Med/Surg History Medical History (Updated 01/01/21 @ 11:14 by Angela Delgado MD) Back pain Benign enlargement of prostate CAD (coronary artery disease) HTN (hypertension) Hyperglycemia Injury of left hand MGUS (monoclonal gammopathy of unknown significance) Peripheral neuropathy Rosacea Trigeminal neuralgia Surgical History History of carpal tunnel release of both wrists 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 with WALLER graft S/P inguinal hernia repair S/P knee replacement S/P tonsillectomy Family History Mother Hypertension Heart disease Diabetes Brother Parkinson disease Father Heart disease Social History Smoking Status: Never smoker Hx Alcohol Use: Yes Alcohol type: wine Hx Substance Use: No Preferred Language: [place] African Communication Ability: Effective Visual Impairment: No Limitations Hearing Ability: Normal Woodworking Craftsman Required: No marital status: Current Living Situation: Spouse current occupational status: retired Feels Safe at Home: Yes caffeine: No Seatbelt Use: always Sunscreen Use: Yes Review of Systems Review of Systems: All systems reviewed & are unremarkable except as noted in HPI & below Physical Exam Constitutional: WD/WN, vitals as above Eyes: PERRL, conjunctivae normal, anicteric sclerae ENMT: external ear and nose normal, oropharynx normal Neck: trachea midline, no thyromegaly Respiratory: normal respiratory effort, lungs clear to auscultation Cardiovascular: RRR, no murmur, no edema Chest (Breasts): Chest: + abnormal inspection of chest (Midline sternotomy scar) Gastrointestinal (Abdomen): normal bowel sounds, soft, nontender, no hepatosplenomegaly Musculoskeletal: Extremities: + extremities abnormal to inspection (Left leg and ankle in splint with Antoni wrap not removed), no cyanosis and no clubbing Skin: no rashes, warm and dry Neurologic: moves all extremities and awake; no focal motor deficits (Except cannot test left lower extremity due to splint) Motor/Sensory: no sensory deficit (Sensation intact distal to injury in the toes on the left) Psychiatric: A+Ox3, euthymic affect Lymphatic: no lymphedema Results & Data Results & Data ([facility]) Vital Signs (Past 12 Hours) Vital Signs Temp Pulse Pulse Resp BP BP Pulse Ox 01/01/21 09:08 65 18 135/80 96 01/01/21 09:00 65 18 01/01/21 08:25 68 20 140/73 95 01/01/21 08:20 70 12 135/72 98 01/01/21 08:15 66 12 143/77 H 98 01/01/21 08:10 75 14 149/80 H 96 01/01/21 08:05 89 24 177/82 H 90 01/01/21 08:00 174/83 H 95 01/01/21 07:54 36.5 C 80 20 174/83 H 93 Laboratory Results 01/01/21 01/01/21 01/01/21 Range/Units 09:10 09:10 07:55 WBC (4.8-10.8) K/uL RBC (4.7-6.1) M/uL Hgb (14.0-18.0) g/dL Hct (42-52) % MCV (80-100) fL MCH (25-34) pg MCHC (32-36) g/dL RDW Std Deviation (36.4-46.3) fL RDW Coeff of Agustín (11.5-14.5) % Plt Count (130-400) K/uL MPV (7.4-10.4) fL Immature Gran % (Auto) % Neut % (Auto) % Lymph % (Auto) % [place] % (Auto) % Eos % (Auto) % Baso % (Auto) % Neut # (Auto) (1.4-6.5) K/uL Lymph # (Auto) (1.2-3.4) K/uL [place] # (Auto) (0.11-0.59) K/uL Eos # (Auto) (0-0.5) K/uL Baso # (Auto) (0-0.2) K/uL Immature Gran # (Auto) (0.00-0.02) K/uL Sodium 141 (136-145) mmol/L Potassium 3.7 (3.5-5.1) mmol/L Chloride 104 (98-107) mmol/L Carbon Dioxide 31 (21-32) mmol/L Anion Gap 6.0 (3-11) BUN 26 H (7-18) mg/dl Creatinine 0.97 (0.6-1.4) mg/dl Est Cr Clr Drug Dosing 65.1 ml/min Est GFR ( Amer) 85.1 Est GFR (Non-Af Amer) 73.4 BUN/Creatinine Ratio 26.2 H (10-20) Glucose 94 (70-99) mg/dl Calcium 9.5 (8.5-10.1) mg/dl Total Bilirubin 0.4 (0.2-1) mg/dl AST 22 (15-37) U/L ALT 37 (12-78) U/L Alkaline Phosphatase 91 (45-117) U/L Total Protein 7.3 (6.4-8.2) gm/dl Albumin 3.7 (3.4-5.0) gm/dl Globulin 3.6 (2.5-4.0) gm/dl Albumin/Globulin Ratio 1.0 (0.9-2) Lipase 158 (73-393) U/L COVID-19 Eval [facility] SARS-CoV-2, RNA, NAAT NEGATIVE (NEGATIVE) 01/01/21 Range/Units 07:55 WBC 7.48 (4.8-10.8) K/uL RBC 4.59 L (4.7-6.1) M/uL Hgb 13.9 L (14.0-18.0) g/dL Hct 41.1 L (42-52) % MCV 89.5 (80-100) fL MCH 30.3 (25-34) pg MCHC 33.8 (32-36) g/dL RDW Std Deviation 43.0 (36.4-46.3) fL RDW Coeff of Agustín 13.2 (11.5-14.5) % Plt Count 248 (130-400) K/uL MPV 10.3 (7.4-10.4) fL Immature Gran % (Auto) 0.3 % Neut % (Auto) 58.2 % Lymph % (Auto) 25.0 % [place] % (Auto) 9.8 % Eos % (Auto) 6.3 % Baso % (Auto) 0.4 % Neut # (Auto) 4.36 (1.4-6.5) K/uL Lymph # (Auto) 1.87 (1.2-3.4) K/uL [place] # (Auto) 0.73 H (0.11-0.59) K/uL Eos # (Auto) 0.47 (0-0.5) K/uL Baso # (Auto) 0.03 (0-0.2) K/uL Immature Gran # (Auto) 0.02 (0.00-0.02) K/uL Sodium (136-145) mmol/L Potassium (3.5-5.1) mmol/L Chloride (98-107) mmol/L Carbon Dioxide (21-32) mmol/L Anion Gap (3-11) BUN (7-18) mg/dl Creatinine (0.6-1.4) mg/dl Est Cr Clr Drug Dosing ml/min Est GFR ( Amer) Est GFR (Non-Af Amer) BUN/Creatinine Ratio (10-20) Glucose (70-99) mg/dl Calcium (8.5-10.1) mg/dl Total Bilirubin (0.2-1) mg/dl AST (15-37) U/L ALT (12-78) U/L Alkaline Phosphatase (45-117) U/L Total Protein (6.4-8.2) gm/dl Albumin (3.4-5.0) gm/dl Globulin (2.5-4.0) gm/dl Albumin/Globulin Ratio (0.9-2) Lipase (73-393) U/L COVID-19 Eval Order SARS-CoV-2, RNA, NAAT (NEGATIVE) Diagnostic Findings X-ray images personally reviewed by me and agree with the following reports: XR ankle LT min 3V routine, XR tibia fibula LT 2V HISTORY: 80 years-old Male Pt c/o left ankle pain acute fracture of the left ankle COMPARISON: None TECHNIQUE: 3 views of the left ankle with 2 views of the left tibia and fibula FINDINGS: ANKLE: Acute fractures of the medial and lateral malleoli. The lateral malleolus fracture fragment is displaced laterally 9 mm. The medial malleolar fracture fragment is displaced laterally 7 mm. Pathologic widening at the distal tibiofibular syndesmosis. There is equivocal fracture of the posterior malleolus. Moderate soft tissue swelling. Spurring of the calcaneus. Overlying casting material limits the study. TIBIA/FIBULA: Left knee total joint arthroplasty. Acute fractures of the medial and lateral malleoli. Surgical clips project over the medial tissues. No additional acute fracture or dislocation. IMPRESSION: 1. Acute displaced fractures of the medial and lateral malleoli with equivocal posterior malleolus fracture. 2. Pathologic widening of the distal tibiofibular syndesmosis. ECG Additional Comments: ECG on 01/01/2021 at 9 AM with sinus rhythm with PACs, rate 68, cannot rule out inferior infarct, age undetermined, unchanged from previous except now PACs present Code Status & VTE Plan Code Status DNR/DNI as per patient's wishes VTE Prophylaxis Plan VTE Prophylaxis will be ordered: Yes PG Care Time/CCT Total # of Minutes Spent Total Time Spent with Patient: Total time spent is greater than 50% in coordination of care (as documented) at patient's floor/unit and/or counseling patient: Coding Level of Care Code 77521 Initial Inpt Care Lvl 3 Diagnoses Ankle fracture, left S82.892A Dislocation of ankle, left, closed S93.05XA CAD (coronary artery disease) I25.10 S/P CABG (coronary artery bypass graft) Z95.1 Trigeminal neuralgia G50.0 Rosacea L71.9 Peripheral neuropathy G62.9 MGUS (monoclonal gammopathy of unknown significance) D47.2 HTN (hypertension) I10 Dyslipidemia E78.5 Benign enlargement of prostate N40.0 Impaired fasting glucose R73.01 Urinary incontinence R32 DVT prophylaxis Z29.9
[2021-01-01] MEDS ORDERED: SODIUM CHLORIDE 0.9% 1000ML 1,000 ML IV SCH ×2 (11:16→21:00)
--- NOTE | 2021-01-01 11:39 | Orthopedic Consultation ---
Date of Consultation January 01, 2021 Assessment & Plan (1) Ankle fracture, left: Patient will require ORIF of his left ankle. I have spoken to Dr. Montoya who plans to do the surgery today around 4 PM. Continue elevation and ice for now. Pain control. I have spoken with Dr. Delgado who is stated that the patient is cleared for the OR. Plan for ORIF today. History of Present Illness Reason for Consultation: Left ankle fracture History of Present Illness Patient is an 80-year-old white male with history of CAD status post two-vessel CABG in 2006, MGUS, HTN, hyperlipidemia, impaired fasting glucose, and urinary incontinence, who after doing his morning workout routine, went outside to clear snow off a vehicle. He states he ended up slipping on ice and fell down fairly quickly. He had immediate pain in his left ankle and was unable to ambulate. He denies hitting his head. He denies loss of consciousness. He denies any lightheadedness, shortness of breath, chest pain prior to or after the falls. He denies any other injury at this time. He was brought to the emergency room where he was seen by the staff. X-rays were taken and was found that he had a fracture dislocation of his left ankle. This was reduced by the ER staff and a splint was applied. It was felt that the patient was unsafe to return home and he is [facility]. Patient was requesting Dr. Montoya. He currently is resting comfortably and his pain is controlled. Allergies Allergy/AdvReac Type Severity Reaction Status Date / Time lisinopril AdvReac Mild Cough Verified 01/01/21 12:27 Home Medications Medication Instructions Recorded Confirmed Type oscslgwzlpq-txvrfzjatre-irlqdey 1 cap PO DAILY cap 04/20/19 01/01/21 History supplement#13 348 mg-300 mg capsule aspirin 325 mg tablet,delayed 325 mg PO DAILY tab 07/07/19 01/01/21 History release omega-3 acid ethyl esters 1 gram 1 cap PO BID cap 07/07/19 01/01/21 History capsule valsartan 160 1 tab PO DAILY #90 tab 01/14/20 01/01/21 Rx mg-hydrochlorothiazide 25 mg tablet gabapentin 300 mg capsule 600 mg PO QID cap 01/17/20 01/01/21 History atorvastatin 40 mg tablet 40 mg PO DAILY #90 tab 03/03/20 01/01/21 Rx nitroglycerin 0.4 mg sublingual 0.4 mg SL Q5M PRN #25 tab 07/28/20 01/01/21 Rx tablet amoxicillin 500 mg capsule 2,000 mg PO .COMPLEX #4 cap 10/02/20 01/01/21 Rx metoprolol tartrate 50 mg tablet 50 mg PO DAILY #90 tab 11/22/20 01/01/21 Rx mirabegron [Myrbetriq] 0 mg PO QAM 01/01/21 01/01/21 History Patient History Medical History (Updated 01/01/21 @ 15:40 by Rashawn Younger DO) Back pain Benign enlargement of prostate CAD (coronary artery disease) HTN (hypertension) Hyperglycemia Injury of left hand MGUS (monoclonal gammopathy of unknown significance) Peripheral neuropathy Rosacea Trigeminal neuralgia Surgical History History of carpal tunnel release of both wrists 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 with WALLER graft S/P inguinal hernia repair S/P knee replacement S/P tonsillectomy Family History Mother Hypertension Heart disease Diabetes Brother Parkinson disease Father Heart disease Social History Smoking Status: Never smoker Do You Dip or Chew Tobacco: No; Hx Alcohol Use: Yes Alcohol type: beer Hx Substance Use: No Preferred Language: Maltese Communication Ability: Effective Visual Impairment: No Limitations Hearing Ability: Normal Agronomy Teacher Required: No Beliefs That Will Affect Care: None marital status: Current Living Situation: Spouse and Family Current Living Situation Comment: Daughter current occupational status: retired Other Information That Helps Us Care for You: No Feels Safe at Home: Yes Safety Concerns: Feels Safe At This Time caffeine: No Seatbelt Use: always Sunscreen Use: Yes Assistive Devices: Glasses Review of Systems Review of Systems: All systems reviewed & are unremarkable except as noted in HPI & below Physical Exam Physical Exam: On examination, the patient is an 80-year-old white male who appears his stated age. He is alert and oriented x3 and in no acute distress. Pleasant and cooperative. On examination of his left lower extremity, he has a posterior splint on his left foot and ankle with lateral and medial buttress splint. Toes are pink and warm with good capillary refill. He is able to move his toes and sensation is intact. He denies any other pain in the left lower extremity. Denies pain at the left knee on palpation and denies left hip pain. Range of motion of the hip and knee are mildly limited secondary to causing some discomfort in his ankle when moving around. Right lower extremity is unaffected and is nontender at the hip knee and ankle with range of motion intact. Upper extremities are unaffected and he is nontender at the shoulders, elbows and wrists. Range of motion is within normal limits. There is no gross motor or sensory loss seen at this time. Pulses are equal bilaterally. Results & Data ([facility]) Vital Signs (Past 12 Hours) Vital Signs Temp Pulse Pulse Resp BP BP Pulse Ox 01/01/21 11:31 65 20 142/75 H 97 01/01/21 10:30 68 18 134/75 95 01/01/21 09:08 65 18 135/80 96 01/01/21 09:00 65 18 01/01/21 08:25 68 20 140/73 95 01/01/21 08:20 70 12 135/72 98 01/01/21 08:15 66 12 143/77 H 98 01/01/21 08:10 75 14 149/80 H 96 01/01/21 08:05 89 24 177/82 H 90 01/01/21 08:00 174/83 H 95 01/01/21 07:54 36.5 C 80 20 174/83 H 93 Diagnostic Findings Patient: SANDRA ELDRIDGE Date: 01/01/21#: [id number]: [address] [facility] ID:[id number]: Date: 1940[facility] Zip: [place], [place] [address]Rcs: 80Location: EDSex: MRoom/Bed:Att Phy:Diagnosis: FALLPri Phy: Yunier Rangel III, MDService Date: 01/01/21Fa Phy:Interpreting Phy: Tiago Bell Phy: Ordering Phy: Yasir Ko MD cc: ~ XR ankle LT min 3V routine, XR tibia fibula LT 2V HISTORY: 80 years-old Male Pt c/o left ankle pain acute fracture of the left ankle COMPARISON: None TECHNIQUE: 3 views of the left ankle with 2 views of the left tibia and fibula FINDINGS: ANKLE: Acute fractures of the medial and lateral malleoli. The lateral malleolus fracture fragment is displaced laterally 9 mm. The medial malleolar fracture fragment is displaced laterally 7 mm. Pathologic widening at the distal tibiofibular syndesmosis. There is equivocal fracture of the posterior malleolus. Moderate soft tissue swelling. Spurring of the calcaneus. Overlying casting material limits the study. TIBIA/FIBULA: Left knee total joint arthroplasty. Acute fractures of the medial and lateral malleoli. Surgical clips project over the medial tissues. No additional acute fracture or dislocation. IMPRESSION: 1. Acute displaced fractures of the medial and lateral malleoli with equivocal posterior malleolus fracture. 2. Pathologic widening of the distal tibiofibular syndesmosis.
[2021-01-01] MEDS: METOPROLOL TARTRATE 50 MG TAB PO SCH (12:21)
[2021-01-01] MEDS ORDERED: ONDANSETRON INJ 2 MG/ML 2 ML VIAL IV PRN ×2 (12:21→16:19)
[2021-01-01] MEDS: ASPIRIN 325 MG ECTAB PO SCH (12:21)
[2021-01-01] MEDS ORDERED: NITROGLYCERIN SL 0.4 MG/TAB TAB SL PRN (12:21)
[2021-01-01] MEDS ORDERED: POLYETHYLENE (MIRALAX) 17 GM PACK PO PRN (12:21)
[2021-01-01] MEDS ORDERED: ACETAMINOPHEN 325 MG TAB PO PRN (12:21)
[2021-01-01] MEDS: ATORVASTATIN 40 MG TAB PO SCH (12:21)
[2021-01-01] MEDS: GABAPENTIN 300 MG CAP PO SCH ×3 (14:03→20:26)
[2021-01-01 14:58] LABS: Appearance Urine Clear (Clear); Bacteria Urine Automated Negative (Negative); Bilirubin Urine Negative (Negative); Blood Urine 1+ (Negative); Cast Urine Automated 0 /lpf (0-5); Color Urine Yellow; Glucose Urine UA Negative (Negative); Ketones Urine Negative (Negative); Leukocyte Esterase Urine Trace (Negative); Nitrite Urine Negative (Negative); Protein Urine Negative (Negative); Specific Gravity Urine 1.026 (1.000-1.030); Urobilinogen Urine Negative (Negative); pH Urine 5.5 (4.5-7.5)
[2021-01-01] MEDS ORDERED: ONDANSETRON INJ 2 MG/ML 2 ML VIAL ONE (15:25)
[2021-01-01] MEDS ORDERED: PROPOFOL IV EMULSION 10 MG/ML 20 ML VIAL IV ONE (15:25)
[2021-01-01] MEDS ORDERED: LIDOCAINE HCL 2% 2 ML VIAL/AMP(20MG/ML) INFIL ONE (15:25)
[2021-01-01] MEDS ORDERED: fentaNYL citrate 100 MCG/2 ML VIAL ONE ×2 (15:25→17:19)
[2021-01-01] MEDS ORDERED: DEXAMETHASONE SOD INJ 4 MG/ML VIAL ONE (15:25)
--- NOTE | 2021-01-01 15:38 | Anesthesiology Consultation ---
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 History Surgery Operation Date: 01/01/21 12:00 Proposed Procedures p Left Bimalleolar Open Reduction Internal Fixation - Padilla Montoya DO Height/Weight Height: 5 ft 7 in Weight: 91.5 kg Allergies Allergy/AdvReac Type Severity Reaction Status Date / Time lisinopril AdvReac Mild Cough Verified 01/01/21 12:27 Medications Home Medications Medication Instructions Recorded Confirmed Last Taken [id number]-[id number] 1 cap PO DAILY cap 04/20/19 01/01/21 12/31/20 supplement#13 348 mg-300 mg capsule aspirin 325 mg tablet,delayed 325 mg PO DAILY tab 07/07/19 01/01/21 12/31/20 release omega-3 acid ethyl esters 1 gram 1 cap PO BID cap 07/07/19 01/01/21 12/31/20 capsule valsartan 160 1 tab PO DAILY #90 tab 01/14/20 01/01/21 12/31/20 mg-hydrochlorothiazide 25 mg tablet gabapentin 300 mg capsule 600 mg PO QID cap 01/17/20 01/01/21 12/31/20 atorvastatin 40 mg tablet 40 mg PO DAILY #90 tab 03/03/20 01/01/21 12/31/20 nitroglycerin 0.4 mg sublingual 0.4 mg SL Q5M PRN #25 tab 07/28/20 01/01/21 Unknown tablet amoxicillin 500 mg capsule 2,000 mg PO .COMPLEX #4 cap 10/02/20 01/01/21 12/31/20 metoprolol tartrate 50 mg tablet 50 mg PO DAILY #90 tab 11/22/20 01/01/21 12/31/20 mirabegron [Myrbetriq] 0 mg PO QAM 01/01/21 01/01/21 12/31/20 Active Medications Generic Name Dose Route Start Last Admin Trade Name Freq PRN Reason Stop Dose Admin Aspirin 325 mg 01/01/21 11:00 01/01/21 12:21 Aspirin 325 Mg Ectab PO 01/31/21 10:59 Not Given DAILY GOLD Atorvastatin Calcium 40 mg 01/01/21 11:00 01/01/21 12:21 Atorvastatin 40 Mg Tab PO 01/31/21 10:59 Not Given DAILY GOLD Gabapentin 600 mg 01/01/21 13:00 01/01/21 14:03 Gabapentin 300 Mg Cap PO 01/31/21 12:59 Not Given QID GOLD Sodium Chloride 1,000 mls @ 80 mls/hr 01/01/21 11:16 01/01/21 12:45 Nss 1000ml IV 01/31/21 11:15 80 mls/hr .[id number] GOLD Administration Metoprolol Tartrate 50 mg 01/01/21 11:00 01/01/21 12:21 Metoprolol Tartrate 50 Mg Tab PO 01/31/21 10:59 Not Given DAILY GOLD NPO Date Last Intake of Fluids: 01/01/21 Time Last Intake of Fluids: 04:30 Last Intake of Fluids Comment: orange juice Date Last Intake of Solids: 01/01/21 Time Last Intake of Solids: 04:30 Last Intake of Solids Comment: muffin and banana Past Medical History Medical History (Updated 01/01/21 @ 15:40 by Rashawn Younger DO) Back pain Benign enlargement of prostate CAD (coronary artery disease) HTN (hypertension) Hyperglycemia Injury of left hand MGUS (monoclonal gammopathy of unknown significance) Peripheral neuropathy Rosacea Trigeminal neuralgia Past Family History Family History Mother Hypertension Heart disease Diabetes Brother Parkinson disease Father Heart disease Past Surgical History Surgical History History of carpal tunnel release of both wrists 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 with WALLER graft S/P inguinal hernia repair S/P knee replacement S/P tonsillectomy Social History Smoking Status: Never smoker Do You Dip or Chew Tobacco: No Hx Alcohol Use: Yes Alcohol type: beer alcohol intake frequency: holidays/special occasions only Hx Substance Use: No substance use type: does not use Physical Exam Vital Signs Last Vital Signs Temp 97.7 F 01/01/21 15:32 Pulse 72 01/01/21 15:32 Resp 20 01/01/21 15:32 BP 164/74 H 01/01/21 15:32 Pulse Ox 99 01/01/21 15:32 Testing Laboratory Results 01/01/21 07:55 01/01/21 07:55 Urine Color Yellow 01/01/21 14:44 Urine Appearance Clear (Clear) 01/01/21 14:44 Urine pH 5.5 (4.5-7.5) 01/01/21 14:44 Ur Specific [place] 1.026 (1.000-1.030) 01/01/21 14:44 Urine Protein Negative (Negative) 01/01/21 14:44 Urine Glucose (UA) Negative (Negative) 01/01/21 14:44 Urine Ketones Negative (Negative) 01/01/21 14:44 Urine Nitrite Negative (Negative) 01/01/21 14:44 Ur Leukocyte Esterase Trace (Negative) H 01/01/21 14:44 Urine WBC (Auto) 1-5 /hpf (0-5) 01/01/21 14:44 Urine RBC (Auto) 10-30 /hpf (0-4) H 01/01/21 14:44 U Hyaline Cast (Auto) 0 /lpf (0-5) 01/01/21 14:44 U Epithel Cells (Auto) 5-10 /lpf (0-5) H 01/01/21 14:44 Urine Bacteria (Auto) Negative (Negative) 01/01/21 14:44 Electrocardiogram Date: 01/01/21 Sinus rhythm with Premature atrial complexes Cannot rule out Inferior infarct , age undetermined Abnormal ECG When compared with ECG of 26-MAR-2014 08:29, Premature atrial complexes are now Present
[2021-01-01] MEDS ORDERED: ePHEDrine sulfate 50 MG/ML AMP IV PRN (16:19)
[2021-01-01] MEDS ORDERED: fentaNYL citrate 100 MCG/2 ML VIAL IV PRN (16:19)
[2021-01-01] MEDS ORDERED: ATROPINE SULFATE 0.1 MG/ML 10ML SYR IV PRN (16:19)
[2021-01-01] MEDS ORDERED: ROPIVACAINE 0.5% 5 MG/ML 30 ML VIAL ONE (16:23)
--- NOTE | 2021-01-01 16:30 | Electrocardiogram Report ---
Test Reason : Blood Pressure : / mmHG Vent. Rate : 068 BPM Atrial Rate : 068 BPM P-R Int : 182 ms QRS Dur : 090 ms QT Int : 424 ms P-R-T Axes : 013 007 007 degrees QTc Int : 450 ms Poor data quality, interpretation may be adversely affected Sinus rhythm with Premature atrial complexes Abnormal ECG When compared with ECG of 26-MAR-2014 08:29, Premature atrial complexes are now Present Confirmed by Anmol Humphries ([id number]) on 01/01/2021 4:30:05 PM Referred By: REFERRED SELF Confirmed By:Jericho Humphries
--- NOTE | 2021-01-01 16:46 | History & Physical Bridge Note ---
Date of Service January 01, 2021 History & Physical Bridge Note I have examined the patient, reviewed the History & Physical and in the interval since the performance of the History & Physical I have noted the following changes of clinical significance: no changes noted
[2021-01-01] MEDS ORDERED: ceFAZolin 2000MG 2,000 MG/15 ML SYR IV ONE (17:00)
[2021-01-01] MEDS ORDERED: BACITRACIN INJ 50,000 UNIT VIAL ONE (17:07)
[2021-01-01] MEDS ORDERED: ePHEDrine sulfate 50 MG/ML SYR ONE (17:18)
--- NOTE | 2021-01-01 18:19 | Post Operative Brief Note ---
Immediate Post Op Note v1 Date of Surgery January 01, 2021 Pre & Post Diagnosis Operation Date: 01/01/21 12:00 Pre-Op Diagnosis: LEFT ANKLE TRIMALLEOLAR FX/DISLOCATION, SYNDESMOTIC DISRUPTION, SLIP AND FALL Post-Op Diagnosis: LEFT ANKLE TRIMALLEOLAR FX/DISLOCATION, SYNDESMOTIC DISRUPTION, SLIP AND FALL I identified the patient and participated in the time-out.: Yes Procedure Operation Date: 01/01/21 12:00 Actual Procedures p Left ankle Open Reduction Internal Fixation trimalleolar fracture dislocation; left ankle open reduction internal fixation syndesmotic disruption (Left) - Padilla Montoya DO Surgeon Padilla Montoya DO Judicial Clerk Wicho Montoya PA-C Estimated Blood Loss 5 Findings Consistent with Post-Op Diagnosis Specimens None Anesthesia Type General Regional Complications none Disposition Accompanied Patient To Recovery: No Disposition: Recovery Room
--- NOTE | 2021-01-01 18:21 | Fluoroscopy Report ---
FL ankle LT 2V CLINICAL HISTORY: Left ankle fracture. Internal fixation. COMPARISON STUDY: Left ankle 01/01/2021. FLUOROSCOPY TIME: 23 seconds. FINDINGS: 3 fluoroscopic spot images demonstrate internal fixation of a bimalleolar fracture with cor tical plate and screws. There is a single syndesmotic screw. Alignment is near-anatomic. The hardware is intact. IMPRESSION: Fluoroscopy provided for internal fixation of a bimalleolar left ankle fracture. The hard zamora appears intact. ACT 112: Negative or not required by law. Electronically signed by: Zane Garvin M.D. 01/01/2021 6:20 PM
--- NOTE | 2021-01-01 19:20 | Anesthesiology Progress Note ---
Date of Service January 01, 2021 Anesthesia Post Procedure Vital Signs Vital Signs: Temp Pulse Pulse Resp BP BP Pulse Ox 01/01/21 19:05 98 H 15 146/84 H 100 01/01/21 18:55 102 H 17 149/90 H 100 01/01/21 18:45 98 H 16 144/83 H 100 01/01/21 18:36 97.0 F L 96 H 20 163/92 H 100 01/01/21 15:32 97.7 F 72 20 164/74 H 99 01/01/21 15:18 98.1 F 90 18 155/79 H 98 01/01/21 11:31 65 20 142/75 H 97 01/01/21 10:30 68 18 134/75 95 01/01/21 09:08 65 18 135/80 96 01/01/21 09:00 65 18 01/01/21 08:25 68 20 140/73 95 01/01/21 08:20 70 12 135/72 98 01/01/21 08:15 66 12 143/77 H 98 01/01/21 08:10 75 14 149/80 H 96 01/01/21 08:05 89 24 177/82 H 90 01/01/21 08:00 174/83 H 95 01/01/21 07:54 97.7 F 80 20 174/83 H 93 Transfer of Care Handoff Completed per policy Notes Mental Status: alert / awake / arousable and participated in evaluation Patient Amnestic to Procedure: Yes Nausea / Vomiting: adequately controlled Pain: adequately controlled Airway Patency, RR, SpO2: stable & adequate BP & HR: stable & adequate Hydration State: stable & adequate Anesthetic Complications: no major complications apparent and Pt Satisfied with anesthetic care
[2021-01-01] MEDS ORDERED: MAGNESIUM HYDROXIDE SUSP 30 ML UDC PO PRN (19:56)
[2021-01-01] MEDS ORDERED: NALOXONE HCL 0.4 MG/1 ML VIAL/CARP IV PRN (19:56)
[2021-01-01] MEDS ORDERED: bisacodyL 10 MG SUPP PR PRN (19:56)
[2021-01-01] MEDS ORDERED: oxyCODONE HCL IR 5 MG TAB (IMMEDIATE RELEASE) PO PRN (19:56)
[2021-01-01] MEDS: DOCUSATE SODIUM 100 MG CAP PO SCH (20:27)
[2021-01-01] MEDS ORDERED: SENNA 8.6 MG TAB PO SCH (21:00)
--- NOTE | 2021-01-01 23:51 | Operative Report (OR) ---
DATE OF OPERATION: 01/01/2021 PREOPERATIVE DIAGNOSES: 1. Left ankle trimalleolar fracture dislocation. 2. Syndesmotic disruption. 3. Slip and fall. POSTOPERATIVE DIAGNOSES: 1. Left ankle trimalleolar fracture dislocation. 2. Syndesmotic disruption. PROCEDURE: 1. Left ankle open reduction and internal fixation, trimalleolar fracture dislocation. 2. Open reduction internal fixation, syndesmotic disruption. SURGEON: Padilla Montoya DO. DOOR PANELER: Wicho Montoya PA-C who was present for patient positioning, sterile prep and drape, management of retractors and instruments. He was present through the critical portions of the case including wound closure, application of sterile dressing and transport of the patient to recovery. ANESTHESIA: General, regional. SPECIMENS: None. DRAINS: None. COMPLICATIONS: None. BLOOD LOSS: 5 mL. PERTINENT HISTORY: This is an 80-year-old gentleman who sustained a slip and fall while at home earlier today in the snow. He had obvious deformity and inability to ambulate. He was transported to [facility] where he was evaluated. Radiographs were obtained and noted to have a fracture dislocation of his ankle. He underwent closed reduction and splinting and then after he was stabilized, ice and elevation was applied. He was then scheduled for surgery as indicated. All potential risks, benefits, complications, alternatives, rehab potential for incomplete relief of symptoms, need for further surgery, DVT, PE, , persistent pain, swelling, scarring, weakness, neurovascular injury, wound complications, hardware failure, nonunion, malunion and bone fracture were discussed with the patient. The patient decided to proceed with procedure as indicated. DESCRIPTION OF PROCEDURE: After regional anesthetic was administered by the anesthesiologist. The patient was then taken to the operative suite, placed supine on the operating room table. After review of consent and identification of proper operative site, the patient was anesthetized, LMA was placed. Tourniquet was placed high on the left thigh over cast padding. Left lower extremity was then sterilely prepped and draped in usual fashion, elevated and exsanguinated with an Esmarch bandage, tourniquet inflated to 350 mmHg. After surgical timeout was performed, 15 blade scalpel was used to make an incision on the lateral malleolus extending proximally. The incision was then deepened through subcutaneous tissue. Meticulous hemostasis was achieved with electrocautery. Full thickness skin flaps were developed with 15 blade scalpel. Next, Jamal rakes were applied. Careful dissection was performed with scissor dissection to the level of the fracture and the peroneal tendon sheath. A 15 blade was then used to sharply elevate periosteum of the distal fragment and the proximal fragment and carefully elevate periosteum judiciously at the fracture site only to gain visualization. Next, Weitlaner retractors were placed proximal and distal to gain visualization and the fracture site was then irrigated with copious sterile saline until clear and debrided with a dental pick. Next, the traction was applied to the left ankle and bone reduction forceps x3 were then used to reduce the fracture fragments into anatomic reduction and stabilization in live fluoroscopic assistance followed by placement of a single anterior to posterior 3.5 mm fully threaded lag screw. Next, a 10-hole one-third tubular Synthes locking plate was then carefully contoured and then firmly affixed to the lateral aspect of the lateral malleolus and distal fibula under live fluoroscopic assistance using multiple locking bone screws. Next, stress views were obtained to ascertain the condition of the syndesmosis. As suspected the syndesmosis was torn with instability at the syndesmosis. Therefore, decision was made to perform open reduction internal fixation of the syndesmosis. Using live fluoroscopic assistance, a single 4.5 mm fully threaded cortical screw was passed from the lateral malleolus through the syndesmosis and into the tibia. The foot was held in neutral dorsiflexion to assure against overtightening of the syndesmosis. Once this was completed, the stress views then repeated and noted to have stabilization of the syndesmosis and stabilization of the ankle mortise. Next, a 15 blade scalpel was then used to make an incision over the medial malleolus which was displaced. Incision was carefully deepened through skin and subcutaneous tissue with a 15 blade scalpel. Jamal rakes were applied and careful scissor dissection was performed to identify the saphenous vein, this was then retracted with a House retractor. The torn periosteum was then sharply incised and visualization was then gained with careful dissection around the medial malleolar fragment, which was then irrigated and debrided with a small dental pick, reduced into anatomic reduction and alignment under live fluoroscopic assistance and direct visualization and then pinned in place with two 1.25 mm guide pins followed by application of two 4.0 cancellous screws placed under live fluoroscopic assistance. The guide pins were then removed. Final radiographs were obtained in AP and lateral projections in addition to further stress views. Saline was then used to irrigate both medial and lateral incision sites. Deep periosteum and deep soft tissue were closed using 2-0 Vicryl. The dermis was closed using buried 3-0 Vicryl, skin was closed using 4-0 nylon for both medial and lateral incisions. No fracture blisters were visualized and a sterile compressive dressing followed by application of a bulky Harry De La Cruz plaster splint was applied with the foot held in neutral dorsiflexion. The tourniquet was released. Normal hyperemic response returned to the toes. The patient was then awakened and taken to recovery in stable condition. I attest to the content of the Intraoperative Record and any orders documented therein. Any exception s are noted below.
[2021-01-02] MEDS: ceFAZolin 2000MG 2,000 MG/15 ML SYR IV SCH ×2 (01:03→09:17)
[2021-01-02 06:26] LABS: Basophils # (auto) 0.01 K/uL (0-0.2); Basophils % (auto) 0.1 %; Hematocrit (blood only) 36.3 % (42-52); Hemoglobin 12.2 g/dL (14.0-18.0); Immature Granulocytes # (auto) 0.01 K/uL (0.00-0.02); Immature Granulocytes % (auto) 0.1 %; Lymphocytes # (auto) 1.11 K/uL (1.2-3.4); Lymphocytes % (auto) 14.3 %; Mean Corpuscular Hgb Conc 33.6 g/dL (32-36); Mean Corpuscular Volume 89.4 fL (80-100); Mean Platelet Volume 9.5 fL (7.4-10.4); Monocytes # (auto) 0.91 K/uL (0.11-0.59); Monocytes % (auto) 11.7 %; Neutrophils # (auto) 5.74 K/uL (1.4-6.5); Neutrophils % (auto) 73.8 %; Platelet Count 208 K/uL (130-400); RDW Coefficient of Variation 13.3 % (11.5-14.5); RDW Standard Deviation 43.1 fL (36.4-46.3); Red Blood Count 4.06 M/uL (4.7-6.1); White Blood Count 7.78 K/uL (4.8-10.8)
[2021-01-02 07:13] LABS: BUN Creatinine Ratio 20.4 (10-20); Calcium 8.2 mg/dl (8.5-10.1); Creatinine Clr Calc Pharmacy 82.5 ml/min; Est GFR (African American) 99.3; Est GFR (Non-African American) 85.7
[2021-01-02] MEDS: DOCUSATE SODIUM 100 MG CAP PO SCH (07:49)
[2021-01-02] MEDS: ASPIRIN 325 MG ECTAB PO SCH (07:49)
[2021-01-02] MEDS: METOPROLOL TARTRATE 50 MG TAB PO SCH (07:49)
[2021-01-02] MEDS: ATORVASTATIN 40 MG TAB PO SCH (07:49)
[2021-01-02] MEDS: GABAPENTIN 300 MG CAP PO SCH ×2 (07:50→12:29)
--- NOTE | 2021-01-02 08:31 | Anesthesiology Progress Note ---
Date of Service January 02, 2021 Anesthesia Post Procedure Vital Signs Vital Signs: Temp Pulse Pulse Pulse Pulse Resp BP 01/02/21 07:49 36.9 C 76 18 135/73 01/02/21 03:38 36.9 C 74 18 154/71 H 01/01/21 22:54 37.0 C 84 19 151/75 H 01/01/21 21:58 36.9 C 86 18 128/70 01/01/21 20:50 36.9 C 83 18 135/72 01/01/21 20:20 36.8 C 84 16 157/82 H 01/01/21 19:35 89 15 154/77 H 01/01/21 19:20 89 15 152/78 H 01/01/21 19:10 36.6 C 88 18 159/78 H 01/01/21 19:05 98 H 15 146/84 H 01/01/21 18:55 102 H 17 149/90 H 01/01/21 18:45 98 H 16 144/83 H 01/01/21 18:36 36.1 C L 96 H 20 163/92 H 01/01/21 15:32 36.5 C 72 20 164/74 H 01/01/21 15:18 36.7 C 90 18 155/79 H 01/01/21 11:31 65 20 142/75 H 01/01/21 10:30 68 18 134/75 01/01/21 09:08 65 18 135/80 01/01/21 09:00 65 18 Pulse Ox 01/02/21 07:49 95 01/02/21 03:38 96 01/01/21 22:54 97 01/01/21 21:58 96 01/01/21 20:50 94 01/01/21 20:20 95 01/01/21 19:35 95 01/01/21 19:20 96 01/01/21 19:10 100 01/01/21 19:05 100 01/01/21 18:55 100 01/01/21 18:45 100 01/01/21 18:36 100 01/01/21 15:32 99 01/01/21 15:18 98 01/01/21 11:31 97 01/01/21 10:30 95 01/01/21 09:08 96 01/01/21 09:00 Notes Mental Status: alert / awake / arousable and participated in evaluation Patient Amnestic to Procedure: Yes Nausea / Vomiting: adequately controlled Pain: adequately controlled Airway Patency, RR, SpO2: stable & adequate Hydration State: stable & adequate Neuraxial Anesthesia: was administered and sensory block is resolving Anesthetic Complications: no major complications apparent and Pt Satisfied with anesthetic care
[2021-01-02] MEDS ORDERED: MULTIVITAMIN TAB PO SCH (09:00)
[2021-01-02] MEDS ORDERED: MIRABEGRON ER 25 MG TAB PO SCH (09:00)
[2021-01-02] MEDS ORDERED: VALSARTAN/HCTZ 80/12.5MG TAB PO SCH (09:00)
--- NOTE | 2021-01-02 13:48 | Orthopedic Progress Note ---
Date of Service January 02, 2021 Assessment & Plan (1) Ankle fracture, left: Postop day 1 status post ORIF left ankle fracture. Continue PT/OT protocols. Nonweightbearing. DVT prophylaxis with daily aspirin. Pain management as written DC planning-patient is planning for [facility] for further rehab. Plan for discharge today. Admission and Anticipated Discharge Date Admission Date: January 01, 2021 Subjective Postop day 1 Patient is sitting in his chair at the bedside. Left lower extremity is elevated. No complaints today. He states that his therapy went fairly well this morning. Pain is controlled. He states that he is starting to get better motion of his toes since the nerve block is wearing off. Patient states he is heading to [facility] today Physical Exam Physical Exam: Splint is clean, dry, and intact. Toes are pink and warm. Cap refills less than 2 seconds. He has good motion of his toes at this time. Results & Data ([facility]) Vital Signs (Past 12 Hours) Vital Signs Temp Pulse Pulse Resp BP Pulse Ox 01/02/21 07:49 36.9 C 76 18 135/73 95 01/02/21 03:38 36.9 C 74 18 154/71 H 96 (1) Ankle fracture, left Encounter type: initial encounter Fracture type: closed Qualified Code(s): S82.892A - Other fracture of left lower leg, initial encounter for closed fracture
--- NOTE | 2021-01-02 14:46 | Discharge Summary ---
Date of Service January 02, 2021 Admission HPI Per Admitting Provider This patient is an 80-year-old male with history of CAD status post two-vessel CABG in 2006, MGUS, HTN, hyperlipidemia, impaired fasting glucose, and urinary incontinence, who was walking out to his car this morning and slipped on some ice and fell onto his left ankle underneath him. He denies any other injuries or loss of consciousness. He did not have lightheadedness and did not hit his head. He denies preceding chest pain or shortness of breath. In fact, he was already at the gym this morning for 1 hour starting at 5 AM 30 minutes on the treadmill and 30 minutes on the bicycle which he does 5 days a week without any difficulty. He has not been sick otherwise, denies fevers or chills, denies chest pains or shortness of breath, denies cough, denies abdominal pains, nausea/vomiting/diarrhea/constipation, denies any urinary issues other than his urinary incontinence for which he sees urology. Denies any joint pains elsewhere. In the ER, he was found to have a bimalleolar fracture and ankle dislocation which was reduced under sedation in the ER. Orthopedics was consulted and recommended surgery. ECG was without acute ischemic changes and laboratory values were reviewed and otherwise normal. Vital signs were stable. He will be admitted for urgent ankle surgery. From a medical standpoint, he can easily achieve at least 4 METS which he does 5 days a week at the gym without any chest pain or shortness of breath. He is at average perioperative cardiovascular risk for this intermediate risk procedure and should proceed with surgery as he desires. Principal Diagnosis Left ankle bimalleolar fracture and dislocation Discharge Exam Constitutional WD/WN, vitals as above Eyes + anicteric sclerae Neck trachea midline, no thyromegaly Respiratory normal respiratory effort, lungs clear to auscultation Cardiovascular RRR, no murmur, no edema Chest (Breasts) Chest: + abnormal inspection of chest (Midline sternotomy scar) Gastrointestinal (Abdomen) normal bowel sounds, soft, nontender, no hepatosplenomegaly Musculoskeletal Extremities: + extremities abnormal to inspection (Left leg and ankle in splint with Antoni wrap not removed), no cyanosis and no clubbing Skin no rashes, warm and dry Neurologic moves all extremities and awake; no focal motor deficits (Except cannot test left lower extremity due to splint) Motor/Sensory: no sensory deficit (Sensation intact distal to injury in the toes on the left) Psychiatric A+Ox3, euthymic affect Discharge Data Allergies Allergy/AdvReac Type Severity Reaction Status Date / Time lisinopril AdvReac Mild Cough Verified 01/01/21 12:27 Consultations 01/01/21 09:12 ED Decision to Admit Stat 01/01/21 11:00 Consult Orthopedic Surgery Routine 01/01/21 12:21 Consult Case Management - Discharge Planning Routine Procedures Performed Operation Date: 01/01/21 12:00 Actual Procedures p Left trimalleolar Open Reduction Internal Fixation(Left) - Padilla Montoya DO Ordered Studies 01/01/21 15:36 US - OR guided needle placemen Routine 01/01/21 16:00 FL ankle LT 2V Routine FL fluoroscopy <1hr Routine Ankle x-ray x2 Tibia/fibula x-ray Hospital Course (1) Ankle fracture, left: Presented with trimalleolar left ankle fracture after slipping on the ice, mechanical fall Now status post surgical repair Follow-up with orthopedic surgery as planned Stable for discharge to rehab Pain control as needed with acetaminophen (2) Dislocation of ankle, left, closed: As above (3) CAD (coronary artery disease): Status post CABG in 2006, stable for quite some time. As per HPI, exercises for 1 hour on the treadmill and stationary bike, 5 days/week without any difficulties Continue aspirin, metoprolol, atorvastatin, valsartan/HCTZ ECG without acute ischemia and no chest pain at this time Did well in the postoperative timeframe (4) S/P CABG (coronary artery bypass graft): As above (5) Trigeminal neuralgia: Not currently an issue (6) Rosacea: Noted but not currently on medication for this (7) Peripheral neuropathy: Continue home gabapentin (8) MGUS (monoclonal gammopathy of unknown significance): Stable, follows with PCP as an outpatient (9) HTN (hypertension): Blood pressures well controlled Continue home valsartan HCT Continue home metoprolol (10) Dyslipidemia: Continue atorvastatin (11) Benign enlargement of prostate: Noted, had no issues with urinary retention postoperatively (12) Impaired fasting glucose: Hemoglobin A1c in the last few months was 5.4% Stable (13) Urinary incontinence: Continue home Myrbetriq in the morning Watch for urinary retention (14) DVT prophylaxis: SCDs Disposition-stable for discharge to rehab DNR/DNI as per discussion with patient. Total Time Total Time Spent Total Time Spent (In Minutes): 35 minutes Total Time Includes: Examination of the Patient, Discharge Planning, Medication Reconciliation and Communication With Other Providers (Orthopedics) Discharge Plan Discharge Items Patient Disposition: Transfer Inpatient Rehab Fac Reason For Visit: FALL, ANKLE FX/DISLOCATION Discharge Diagnosis: Trimalleolar ankle fracture Activity: Per Instructions section Weightbearing: Left non-weightbearing Weightbearing Comment: With assistive device. Non-emergency contact: Surgeon Call non-emergency contact if: your pain is not controlled, your temperature is above 101.5, your wound has increased redness and your wound has increased drainage Follow-up/Referrals: Yunier Rangel III, MD [Primary Care Provider] - Padilla Montoya DO [Surgeon] - (Follow-up in 10 to 14 days for wound check.) Diet: Heart Healthy Addtl Attending Provider Instructions: You were admitted after falling and breaking your ankle. You will be discharged to acute rehab. Please continue all your medications as before. Addtl It Application Development Manager Provider Instructions: ACTIVITY RECOMMENDATIONS: *You must remain nonweightbearing on your left lower extremity until told otherwise by Dr. Montoya. SPECIAL CARE INSTRUCTIONS: * Some drainage onto the dressing is normal and is no cause for alarm. * Some swelling is natural especially after walking. When resting, keep your foot elevated above the level of your heart. * Call the doctor's office at if you notice increased drainage, fever over 101 degrees F. or severe constant pain. BANDAGE: * Leave bandage/cast in place unless otherwise directed. * Keep bandage/cast dry at all times. FOLLOW UP VISIT: If appointment is not already scheduled: Please call [facility] to make a follow-up appointment with Dr. Montoya in 10 to 14 days from the day of surgery at . Pending Studies at Discharge: No Stand-Alone Forms: My [employer] Skilled Items Patient informed of condition?: Yes DNR: Yes Discharge Level of Care: Acute rehab Communicable Disease: No Discharge Prognosis: Improving Lines: None Urinary Catheter: No Medications and DC Order Prescriptions: New acetaminophen 325 mg Tablet 650 mg PO Q4H PRN (Reason: pain) Qty: 30 RF: 0 Continued valsartan-hydrochlorothiazide 160-25 mg tablet 1 tab PO DAILY Qty: 90 RF: 3 atorvastatin 40 mg tablet 40 mg PO DAILY Qty: 90 RF: 3 amoxicillin 500 mg capsule 2,000 mg PO .COMPLEX Qty: 4 RF: 1 metoprolol tartrate 50 mg tablet 50 mg PO DAILY Qty: 90 RF: 3 gabapentin 300 mg capsule 600 mg PO QID RF: 0 nitroglycerin 0.4 mg tablet, sublingual 0.4 mg SL Q5M PRN (Reason: chest pain) Qty: 25 RF: 3 wwimthfsisn-jgpqfvpfvwr-sjsh61 348-300 mg capsule 1 cap PO DAILY RF: 0 aspirin 325 mg tablet,delayed release (DR/EC) 325 mg PO DAILY RF: 0 omega-3 acid ethyl esters 1 gram capsule 1 cap PO BID RF: 0 Myrbetriq 25 mg Tablet Extended Release 24 Hr 0 mg PO QAM RF: 0 Discharge Orders: Discharge Order (Routine); Ordered 01/02/21 Ordered By: Angela Delgado Admission Data Admit Date/Time: 01/01/21 11:00 Attending Provider: Agnela Delgado Admit Provider: Angela Delgado Primary Care Provider: Yunier Rangel III Other Providers: Angela Delgado ; Padilla Montoya ; [facility] Other Interventions: Discharge Summary Assessment (RN) Last Done: 01/02/21 14:32 Coding Level of Care Code 45605 OBS Care - Discharge Diagnoses Ankle fracture, left S82.892A Encounter type: initial encounter Fracture type: closed Dislocation of ankle, left, closed S93.05XA Encounter type: initial encounter CAD (coronary artery disease) I25.10 S/P CABG (coronary artery bypass graft) Z95.1 Trigeminal neuralgia G50.0 Rosacea L71.9 Peripheral neuropathy G62.9 MGUS (monoclonal gammopathy of unknown significance) D47.2 HTN (hypertension) I10 Dyslipidemia E78.5 Benign enlargement of prostate N40.0 Impaired fasting glucose R73.01 Urinary incontinence R32 DVT prophylaxis Z29.9
== END 2021-01-02 16:29 ==
LOC: ED 07:47 → INTOOBSV 11:00 → 3W 11:00

== ENCOUNTER 2021-12-07 02:07 | Observation (INO) ==
[2021-12-07] MEDS ORDERED: ACETAMINOPHEN 325 MG TAB PO STA (02:21)
[2021-12-07] MEDS ORDERED: SODIUM CHLORIDE 0.9% 1000ML 1,000 ML IV SCH (02:30)
[2021-12-07 03:07] LABS: Basophils # (auto) 0.02 K/uL (0-0.2); Basophils % (auto) 0.3 %; Eosinophils # (auto) 0.08 K/uL (0-0.5); Eosinophils % (auto) 1.1 %; Hematocrit (blood only) 43.4 % (42-52); Hemoglobin 14.2 g/dL (14.0-18.0); Immature Granulocytes # (auto) 0.03 K/uL (0.00-0.02); Immature Granulocytes % (auto) 0.4 %; Lymphocytes % (auto) 9.2 %; Mean Corpuscular Hemoglobin 30.7 pg (25-34); Mean Corpuscular Hgb Conc 32.7 g/dL (32-36); Mean Corpuscular Volume 93.9 fL (80-100); Mean Platelet Volume 9.6 fL (7.4-10.4); Monocytes % (auto) 10.5 %; Neutrophils # (auto) 5.96 K/uL (1.4-6.5); Neutrophils % (auto) 78.5 %; Platelet Count 230 K/uL (130-400); RDW Coefficient of Variation 13.1 % (11.5-14.5); Red Blood Count 4.62 M/uL (4.7-6.1); White Blood Count 7.59 K/uL (4.8-10.8)
[2021-12-07 03:30] LABS: Troponin I 0.03 ng/ml (0-0.04)
[2021-12-07 03:33] LABS: Est GFR (African American) 75.1 ml/min; Est GFR (Non-African American) 64.8 ml/min; Potassium 4.1 mmol/L (3.5-5.1)
[2021-12-07 03:34] LABS: Albumin Globulin Ratio 1.4 (0.9-2); Albumin Level 4.3 gm/dl (3.4-5.0); BUN Creatinine Ratio 24.3 (10-20); Bilirubin,Total 0.4 mg/dl (0.2-1.0); Calcium 9.4 mg/dl (8.5-10.1); Creatinine Clr Calc Pharmacy 60.8 ml/min; Total Protein 7.3 gm/dl (6.0-8.3)
--- NOTE | 2021-12-07 04:11 | History & Physical Report ---
Date of Service December 07, 2021 Assessment & Plan (1) Weakness: Plan: Patient complaining of generalized weakness resulting in fall x 2 at home. Concerned that he is unable to go home and climb the stairs and perform ADLs. Weakness most likely secondary to Covid-19 infection. Electrolytes and renal function are WNL -Fall precautions -Check orthostatic VS (2) COVID-19: Plan: Patient is fully vaccinated. Contact with daughter who recently tested positive. No cough, SOB, fever or hypoxia -No indication for steroid treatment as patient is presently not hypoxic - is 96% on room air -Monitor oxygenation (3) HTN (hypertension): Plan: Chronic -Continue Valsartan/HCTZ -Continue Metoprolol (4) Dyslipidemia: Plan: Chronic -Continue Atorvastatin (5) CAD (coronary artery disease): Plan: No CP, palpitations SOB -Continue ASA, Metoprolol, Atorvastatin and Losartan (6) Benign enlargement of prostate: Plan: Chronic -Continue Flomax History of Present Illness Chief Complaint: weakness, fatigue, Covid-19 Primary Care Provider: Yunier Rangel MD Harry Gtz is an 81yo male with history of HTN, CAD presenting with dizziness and fall at home. Patient was in his usual state of health today. He was sorting some tools when he became dizzy and passed fell. He did not lose consciousness, did not strike his head. He denies chest pain, palpitations preceding or following the fall. He states he feels very weak. Difficulty ambulating. No additional complaints. Patient's daughter tested positive for Covid-19 yesterday. Patient denies fever, chills, cough, SOB, abdominal pain, nausea, vomiting, diarrhea or constipation. In the ER he is afebrile, HD stable, no hypoxia ER Course: Tylenol, NSS Allergies Allergy/AdvReac Type Severity Reaction Status Date / Time lisinopril AdvReac Mild Cough Verified 10/01/21 21:18 Home Medications Medication Instructions Recorded Confirmed Type aspirin 325 mg tablet,delayed 325 mg PO DAILY tab 07/07/19 12/07/21 History release omega-3 acid ethyl esters 1 gram 1 cap PO BID cap 07/07/19 10/01/21 History capsule metoprolol tartrate 50 mg tablet 50 mg PO DAILY #90 tab 11/22/20 12/07/21 Rx acetaminophen 325 mg tablet 650 mg PO Q4H PRN #30 tab 01/02/21 10/01/21 Rx nitroglycerin 0.4 mg sublingual 0.4 mg SL Q5M PRN #25 tab 01/16/21 12/07/21 Rx tablet valsartan 160 1 tab PO DAILY #90 tab 02/12/21 12/07/21 Rx mg-hydrochlorothiazide 25 mg tablet atorvastatin 40 mg tablet 40 mg PO DAILY #90 tab 04/17/21 12/07/21 Rx gabapentin 300 mg capsule 600 mg PO .BID/UD cap 05/22/21 12/07/21 History mepnkovkbam-yhuydaeiyjp-wvfuyjk 1 cap PO BID cap 05/22/21 12/07/21 History supplement#13 348 mg-300 mg capsule tamsulosin 0.4 mg capsule 0.4 mg PO DAILY #90 cap 05/28/21 12/07/21 Rx amoxicillin 500 mg capsule 2,000 mg PO .UD/PRN PRN 10/01/21 12/07/21 History gabapentin 300 mg capsule 900 mg PO .BID/UD 10/01/21 12/07/21 History solifenacin 5 mg tablet (Vesicare) 5 mg PO DAILY #90 tab 11/28/21 12/07/21 Rx Myrbetriq 25 mg PO DAILY 12/07/21 12/07/21 History carbamazepine 200 mg tablet 200 mg PO TID 12/07/21 12/07/21 History doxycycline hyclate 50 mg PO DAILY 12/07/21 12/07/21 History Past Med/Surg History Medical History (Updated 12/07/21 @ 04:11 by Roxane Weston DO) Back pain Benign enlargement of prostate CAD (coronary artery disease) HTN (hypertension) Injury of left hand MGUS (monoclonal gammopathy of unknown significance) Peripheral neuropathy Rosacea Trigeminal neuralgia Surgical History History of carpal tunnel release of both wrists 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 with WALLER graft S/P inguinal hernia repair S/P knee replacement S/P tonsillectomy Family History Mother Hypertension Heart disease Diabetes Brother Parkinson disease Father Heart disease Social History Smoking Status: Never smoker Hx Alcohol Use: Yes Alcohol type: beer Hx Substance Use: No Preferred Language: Danish Communication Ability: Effective Visual Impairment: No Limitations Hearing Ability: Normal Master Baker Required: No Beliefs That Will Affect Care: None marital status: Current Living Situation: Spouse and Family Current Living Situation Comment: Daughter current occupational status: retired Feels Safe at Home: Yes caffeine: No Seatbelt Use: always Sunscreen Use: Yes Assistive Devices: Walker Review of Systems Review of Systems: All systems reviewed & are unremarkable except as noted in HPI & below Physical Exam Physical Exam: General: patient resting comfortably, NAD, non-toxic in appearance, AA&O x 4 Skin: warm, dry, intact, erythematous skin on face, flaking and crusting near eyes and ears HEENT: NC/AT, PERRL, EOMI, anicteric sclera, conjunctiva without injection, external ear normal to inspection and nontender, nares patent, moist mucus membranes, dentition intact, no oropharyngeal lesions, neck supple, trachea midline, no LAD, no thyromegaly, no JVD Heart: +S1/S2, regular, no m/r/g Lungs: equal air entry bilaterally, no rales/rhonchi/wheezes Abd: +BS, soft, NT/ND, no masses/organomegaly/ascites Ext: warm, 2+ pulses in UE/LE bilaterally, no clubbing/cyanosis or edema Neuro: nonfocal, patient AA&O x 4, speech intact, no facial droop, moving all extremities on command with equal strength 5/5 Results & Data Results & Data ([facility]) Vital Signs (Past 12 Hours) Vital Signs Temp Pulse Pulse Resp BP BP Pulse Ox 12/07/21 03:14 69 18 118/63 97 12/07/21 02:57 71 18 97 12/07/21 02:22 97 12/07/21 02:12 37.6 C H 81 12 152/74 H 96 Laboratory Results Laboratory Results WBC 7.59 K/uL (4.8-10.8) 12/07/21 02:51 RBC 4.62 M/uL (4.7-6.1) L 12/07/21 02:51 Hgb 14.2 g/dL (14.0-18.0) 12/07/21 02:51 Hct 43.4 % (42-52) 12/07/21 02:51 MCV 93.9 fL (80-100) 12/07/21 02:51 MCH 30.7 pg (25-34) 12/07/21 02:51 MCHC 32.7 g/dL (32-36) 12/07/21 02:51 RDW Std Deviation 45.0 fL (36.4-46.3) 12/07/21 02:51 RDW Coeff of Agustín 13.1 % (11.5-14.5) 12/07/21 02:51 Plt Count 230 K/uL (130-400) 12/07/21 02:51 MPV 9.6 fL (7.4-10.4) 12/07/21 02:51 Immature Gran % (Auto) 0.4 % 12/07/21 02:51 Neut % (Auto) 78.5 % 12/07/21 02:51 Lymph % (Auto) 9.2 % 12/07/21 02:51 Putnam % (Auto) 10.5 % 12/07/21 02:51 Eos % (Auto) 1.1 % 12/07/21 02:51 Baso % (Auto) 0.3 % 12/07/21 02:51 Neut # (Auto) 5.96 K/uL (1.4-6.5) 12/07/21 02:51 Lymph # (Auto) 0.70 K/uL (1.2-3.4) L 12/07/21 02:51 Putnam # (Auto) 0.80 K/uL (0.11-0.59) H 12/07/21 02:51 Eos # (Auto) 0.08 K/uL (0-0.5) 12/07/21 02:51 Baso # (Auto) 0.02 K/uL (0-0.2) 12/07/21 02:51 Immature Gran # (Auto) 0.03 K/uL (0.00-0.02) H 12/07/21 02:51 Sodium 137 mmol/L (136-145) 12/07/21 02:51 Potassium 4.1 mmol/L (3.5-5.1) 12/07/21 02:51 Chloride 100 mmol/L (98-107) 12/07/21 02:51 Carbon Dioxide 29 mmol/L (21-32) 12/07/21 02:51 Anion Gap 8 (3-11) 12/07/21 02:51 BUN 26 mg/dl (6-23) H 12/07/21 02:51 Creatinine 1.07 mg/dl (0.6-1.4) 12/07/21 02:51 Est Cr Clr Drug Dosing 60.8 ml/min 12/07/21 02:51 Est GFR ( Amer) 75.1 ml/min 12/07/21 02:51 Est GFR (Non-Af Amer) 64.8 ml/min 12/07/21 02:51 BUN/Creatinine Ratio 24.3 (10-20) H 12/07/21 02:51 Glucose 132 mg/dl (70-99(Fasting)) H 12/07/21 02:51 Lactate 1.2 mmol/L (0.4-2.0) 12/07/21 02:51 Calcium 9.4 mg/dl (8.5-10.1) 12/07/21 02:51 Magnesium 2.0 mg/dl (1.7-2.4) 12/07/21 02:51 Total Bilirubin 0.4 mg/dl (0.2-1.0) 12/07/21 02:51 AST 29 U/L (13-39) 12/07/21 02:51 ALT 14 U/L (7-52) 12/07/21 02:51 Alkaline Phosphatase 78 U/L (34-104) 12/07/21 02:51 Troponin I 0.03 ng/ml (0-0.04) 12/07/21 02:51 Total Protein 7.3 gm/dl (6.0-8.3) 12/07/21 02:51 Albumin 4.3 gm/dl (3.4-5.0) 12/07/21 02:51 Globulin 3.0 gm/dl (2.5-4.0) 12/07/21 02:51 Albumin/Globulin Ratio 1.4 (0.9-2) 12/07/21 02:51 TSH 1.406 uIu/ml (0.300-4.500) 12/07/21 02:51 SARS-CoV-2, RNA, NAAT POSITIVE (NEGATIVE) A* 12/07/21 02:39 Diagnostic Findings CXR - patient s/p sternotomy, ?left lower infiltrate Code Status & VTE Plan VTE Prophylaxis Plan VTE Prophylaxis will be ordered: Yes PG Care Time/CCT Total # of Minutes Spent Total Time Spent with Patient: Total time spent is greater than 50% in coordination of care (as documented) at patient's floor/unit and/or counseling patient: Coding Level of Care Code INT OBSERVATION CARE 70M LVL 3 Diagnoses HTN (hypertension) I10 Dyslipidemia E78.5 CAD (coronary artery disease) I25.10 Benign enlargement of prostate N40.0 COVID-19 U07.1 Weakness R53.1
--- NOTE | 2021-12-07 06:48 | XRay Report ---
XR chest 1V portable HISTORY: 81 years-old Male weakness acute weakness COMPARISON: Chest radiographs 09/11/2016 TECHNIQUE: Portable AP view of the chest FINDINGS: Cardiac silhouette is enlarged. Prior median sternotomy and CABG. No pneumothorax or large pleural ef fusion. Chronic interstitial coarsening of the lung bases. No overt pulmonary edema. Degenerative manuel nges of the shoulders and spine. IMPRESSION: 1. Cardiomegaly without overt pulmonary edema. 2. Chronic interstitial coarsening of the lung bases. ACT 112: Negative or not required by law. The above report was generated using voice recognition software. It may contain grammatical, syntax o r spelling errors. Electronically signed by: Tiago Burch M.D. 12/07/2021 6:46 AM
--- NOTE | 2021-12-07 07:49 | Emergency Department Note ---
Impression & Plan COVID-19, Weakness, Frequent falls ED Provider Note CHIEF COMPLAINT: COVID-19 exposure, frequent falls HISTORY OF PRESENT ILLNESS: This 81-year-old male patient presents to the emergency department with complaints of weakness and falls. Patient and complain of nasal congestion and patient has had some difficulty with ambulation over the last 12 to 24 hours. They do live at home with their daughter who has tested positive for COVID-19 yesterday. He fell attempting to go to the bathroom today and had difficulty getting him up. She needed to call the ambulance for assistance. Patient denies any head injury or neck pain. He denies any anticoagulants but does take an aspirin daily. He denies any significant shortness of breath, vomiting or diarrhea. REVIEW OF SYSTEMS: A review of systems was performed with positives and pertinent negatives listed in the history of present illness. 10 systems were reviewed and are otherwise negative. ALLERGIES: see below MEDICATIONS: see below PMH: see below SOCIAL HISTORY: see below DDx: Infection, dehydration, metabolic abnormality, hypo/hyperglycemia, electrolyte disturbance, anemia, hypoxia, cardiac sources, intracerebral event, toxicologic, neurologic, as well as other pathologies. PHYSICAL EXAM: Vital signs reviewed. General: Chronically ill-appearing and somewhat debilitated 81-year-old male, in no significant distress HEENT: No scleral icterus, PERRLA, neck supple. Atraumatic. Cardiovascular: Regular rate and rhythm, systolic ejection murmur no extra sounds. Pulmonary: Clear to auscultation bilaterally, normal work of breathing. Abdomen: Soft, nontender, nondistended, positive bowel sounds. Musculoskeletal: Atraumatic, no peripheral edema. Neurologic: Patient awake alert and oriented x 3, speech is clear Skin: Warm, dry, no rash EMERGENCY DEPARTMENT COURSE/MDM: This patient was evaluated and appeared to be in no significant distress. IV access was obtained and laboratory work was drawn. The patient was placed on director of cardiac cath lab noted to be in a sinus rhythm with a first-degree AV block. Patient was hydrated with normal saline solution. Chest x-ray was performed and reveals no evidence of focal infiltrate. Laboratory work is fairly reassuring. Patient has tested positive for COVID-19 and given the fact that his elderly and daughter are Covid positive and in the home, they're unlikely to be able to assist the patient with ADLs and transfers. Obtaining in-home help is not practical at this time given the contagious nature of COVID-19. I do not think that the patient has suffered any significant injury due to this fall thankfully however the hospitalist service will be consulted for further management. Patient and are aware of the plan and agreed. MONITORING: An order for cardiac monitoring was placed and the patient is noted to be in a sinus rhythm with a first-degree AV block at 69 beats per minute. RADIOLOGY: See below EKG: Sinus rhythm with a first-degree AV block at [address] segments. Normal axis. No PVC, no PAC. When compared to previous January 01, 2021, PACs are no longer present, IN interval has lengthened. DISPOSITION: Hospitalist evaluation Past Med/Surg History Medical History (Updated 12/08/21 @ 14:34 by Irma Baeza MD) Back pain Benign enlargement of prostate CAD (coronary artery disease) HTN (hypertension) Injury of left hand MGUS (monoclonal gammopathy of unknown significance) Peripheral neuropathy Rosacea Trigeminal neuralgia Surgical History History of carpal tunnel release of both wrists 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 with WALLER graft S/P inguinal hernia repair S/P knee replacement S/P tonsillectomy Family History Mother Hypertension Heart disease Diabetes Brother Parkinson disease Father Heart disease Social History Smoking Status: Never smoker Hx Alcohol Use: Yes Alcohol type: beer Hx Substance Use: No Preferred Language: [place] Communication Ability: Effective Visual Impairment: No Limitations Hearing Ability: Normal 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 Beliefs That Will Affect Care: None marital status: Current Living Situation: Spouse and Family Current Living Situation Comment: Daughter, current occupational status: retired Feels Safe at Home: Yes caffeine: No Seatbelt Use: always Sunscreen Use: Yes Assistive Devices: Walker Allergies Allergies Allergy/AdvReac Type Severity Reaction Status Date / Time lisinopril AdvReac Mild Cough Verified 10/01/21 21:18 Home Meds Home Medications Medication Instructions Recorded Confirmed aspirin 325 mg tablet,delayed 325 mg PO DAILY tab 07/07/19 12/07/21 release omega-3 acid ethyl esters 1 gram 1 cap PO BID cap 07/07/19 10/01/21 capsule gabapentin 300 mg capsule 600 mg PO .BID/UD cap 05/22/21 12/07/21 gdudkytvktk-opzvzeyafnq-[id number] 1 cap PO BID cap 05/22/21 12/07/21 supplement#13 348 mg-300 mg capsule amoxicillin 500 mg capsule 2,000 mg PO .UD/PRN PRN 10/01/21 12/07/21 gabapentin 300 mg capsule 900 mg PO .BID/UD 10/01/21 12/07/21 Myrbetriq 25 mg PO DAILY 12/07/21 12/07/21 carbamazepine 200 mg tablet 200 mg PO TID 12/07/21 12/07/21 doxycycline hyclate 50 mg PO DAILY 12/07/21 12/07/21 Previous Rx's Medication Instructions Recorded metoprolol tartrate 50 mg tablet 50 mg PO DAILY #90 tab 11/22/20 acetaminophen 325 mg tablet 650 mg PO Q4H PRN #30 tab 01/02/21 nitroglycerin 0.4 mg sublingual 0.4 mg SL Q5M PRN #25 tab 01/16/21 tablet valsartan 160 1 tab PO DAILY #90 tab 02/12/21 mg-hydrochlorothiazide 25 mg tablet atorvastatin 40 mg tablet 40 mg PO DAILY #90 tab 04/17/21 tamsulosin 0.4 mg capsule 0.4 mg PO DAILY #90 cap 05/28/21 solifenacin 5 mg tablet (Vesicare) 5 mg PO DAILY #90 tab 11/28/21 Results & Data (ED) Vital Signs Vital Signs - 24 hr 12/07/21 02:12 12/07/21 02:18 12/07/21 02:20 Temperature 37.6 C H Temperature Source Oral Pulse Rate 81 75 74 Pulse Rate [Finger] Pulse Rate from SpO2 Sensor 74 Pulse Rhythm [Finger] Pulse Strength [Finger] Respiratory Rate 12 15 9 L Respiratory Effort / Characteristics Non-Labored Spontaneous Respiratory Depth Normal Blood Pressure 152/74 H Blood Pressure [Left Arm] Blood Pressure Mean 100 Blood Pressure Mean [Left Arm] Blood Pressure Position [Left Arm] Pulse Oximetry 96 97 Oxygen Delivery Method Room Air Sepsis Recent Fever Within 48 Hours No Sepsis New/Unexplained Change in Mental Status N/A Sepsis Action Taken by Nursing No Action Required 12/07/21 02:22 12/07/21 02:30 12/07/21 02:40 Temperature Temperature Source Pulse Rate 72 71 Pulse Rate [Finger] Pulse Rate from SpO2 Sensor 73 Pulse Rhythm [Finger] Pulse Strength [Finger] Respiratory Rate 17 16 Respiratory Effort / Characteristics Respiratory Depth Blood Pressure Blood Pressure [Left Arm] Blood Pressure Mean Blood Pressure Mean [Left Arm] Blood Pressure Position [Left Arm] Pulse Oximetry 97 97 Oxygen Delivery Method Room Air Sepsis Recent Fever Within 48 Hours Sepsis New/Unexplained Change in Mental Status Sepsis Action Taken by Nursing 12/07/21 02:50 12/07/21 02:57 12/07/21 03:00 Temperature Temperature Source Pulse Rate 67 71 68 Pulse Rate [Finger] Pulse Rate from SpO2 Sensor Pulse Rhythm [Finger] Pulse Strength [Finger] Respiratory Rate 13 18 17 Respiratory Effort / Characteristics Respiratory Depth Blood Pressure Blood Pressure [Left Arm] Blood Pressure Mean Blood Pressure Mean [Left Arm] Blood Pressure Position [Left Arm] Pulse Oximetry 97 Oxygen Delivery Method Room Air Sepsis Recent Fever Within 48 Hours Sepsis New/Unexplained Change in Mental Status Sepsis Action Taken by Nursing 12/07/21 03:10 12/07/21 03:14 12/07/21 03:15 Temperature Temperature Source Pulse Rate 65 66 Pulse Rate [Finger] 69 Pulse Rate from SpO2 Sensor 64 65 Pulse Rhythm [Finger] Regular Pulse Strength [Finger] Normal Respiratory Rate 14 18 18 Respiratory Effort / Characteristics Non-Labored Spontaneous Respiratory Depth Normal Blood Pressure 118/63 Blood Pressure [Left Arm] 118/63 Blood Pressure Mean 81 Blood Pressure Mean [Left Arm] 81 Blood Pressure Position [Left Arm] Lying Pulse Oximetry 98 97 97 Oxygen Delivery Method Room Air Sepsis Recent Fever Within 48 Hours Sepsis New/Unexplained Change in Mental Status Sepsis Action Taken by Nursing 12/07/21 03:20 12/07/21 03:30 12/07/21 03:31 Temperature Temperature Source Pulse Rate 65 66 63 Pulse Rate [Finger] Pulse Rate from SpO2 Sensor 65 71 64 Pulse Rhythm [Finger] Pulse Strength [Finger] Respiratory Rate 17 22 14 Respiratory Effort / Characteristics Respiratory Depth Blood Pressure 122/54 L Blood Pressure [Left Arm] Blood Pressure Mean 76 Blood Pressure Mean [Left Arm] Blood Pressure Position [Left Arm] Pulse Oximetry 96 94 95 Oxygen Delivery Method Sepsis Recent Fever Within 48 Hours Sepsis New/Unexplained Change in Mental Status Sepsis Action Taken by Nursing 12/07/21 03:40 12/07/21 03:50 12/07/21 04:00 Temperature Temperature Source Pulse Rate 68 62 66 Pulse Rate [Finger] Pulse Rate from SpO2 Sensor 67 62 Pulse Rhythm [Finger] Pulse Strength [Finger] Respiratory Rate 11 L 15 18 Respiratory Effort / Characteristics Respiratory Depth Blood Pressure 140/70 Blood Pressure [Left Arm] Blood Pressure Mean 93 Blood Pressure Mean [Left Arm] Blood Pressure Position [Left Arm] Pulse Oximetry 95 95 Oxygen Delivery Method Sepsis Recent Fever Within 48 Hours Sepsis New/Unexplained Change in Mental Status Sepsis Action Taken by Nursing 12/07/21 04:10 12/07/21 04:20 12/07/21 04:28 Temperature Temperature Source Pulse Rate 62 70 Pulse Rate [Finger] 74 Pulse Rate from SpO2 Sensor 63 Pulse Rhythm [Finger] Pulse Strength [Finger] Respiratory Rate 15 21 18 Respiratory Effort / Characteristics Non-Labored Spontaneous Respiratory Depth Normal Blood Pressure Blood Pressure [Left Arm] 140/70 Blood Pressure Mean Blood Pressure Mean [Left Arm] 93 Blood Pressure Position [Left Arm] Lying Pulse Oximetry 92 96 Oxygen Delivery Method Room Air Sepsis Recent Fever Within 48 Hours Sepsis New/Unexplained Change in Mental Status Sepsis Action Taken by Nursing 12/07/21 04:30 12/07/21 04:40 12/07/21 04:50 Temperature Temperature Source Pulse Rate 63 69 70 Pulse Rate [Finger] Pulse Rate from SpO2 Sensor 63 68 69 Pulse Rhythm [Finger] Pulse Strength [Finger] Respiratory Rate 12 17 15 Respiratory Effort / Characteristics Respiratory Depth Blood Pressure 130/75 Blood Pressure [Left Arm] Blood Pressure Mean 93 Blood Pressure Mean [Left Arm] Blood Pressure Position [Left Arm] Pulse Oximetry 95 94 94 Oxygen Delivery Method Sepsis Recent Fever Within 48 Hours Sepsis New/Unexplained Change in Mental Status Sepsis Action Taken by Nursing 12/07/21 05:00 12/07/21 05:10 12/07/21 05:20 Temperature Temperature Source Pulse Rate 70 67 65 Pulse Rate [Finger] Pulse Rate from SpO2 Sensor 69 65 65 Pulse Rhythm [Finger] Pulse Strength [Finger] Respiratory Rate 13 14 14 Respiratory Effort / Characteristics Respiratory Depth Blood Pressure 134/71 Blood Pressure [Left Arm] Blood Pressure Mean 92 Blood Pressure Mean [Left Arm] Blood Pressure Position [Left Arm] Pulse Oximetry 91 92 92 Oxygen Delivery Method Sepsis Recent Fever Within 48 Hours Sepsis New/Unexplained Change in Mental Status Sepsis Action Taken by Nursing 12/07/21 05:30 12/07/21 05:40 12/07/21 05:50 Temperature Temperature Source Pulse Rate 72 70 61 Pulse Rate [Finger] Pulse Rate from SpO2 Sensor 71 70 62 Pulse Rhythm [Finger] Pulse Strength [Finger] Respiratory Rate 14 15 14 Respiratory Effort / Characteristics Respiratory Depth Blood Pressure 140/75 Blood Pressure [Left Arm] Blood Pressure Mean 96 Blood Pressure Mean [Left Arm] Blood Pressure Position [Left Arm] Pulse Oximetry 92 96 97 Oxygen Delivery Method Sepsis Recent Fever Within 48 Hours Sepsis New/Unexplained Change in Mental Status Sepsis Action Taken by Nursing 12/07/21 06:00 12/07/21 06:10 12/07/21 06:20 Temperature Temperature Source Pulse Rate 70 74 73 Pulse Rate [Finger] Pulse Rate from SpO2 Sensor 69 73 72 Pulse Rhythm [Finger] Pulse Strength [Finger] Respiratory Rate 16 17 14 Respiratory Effort / Characteristics Respiratory Depth Blood Pressure 142/78 H Blood Pressure [Left Arm] Blood Pressure Mean 99 Blood Pressure Mean [Left Arm] Blood Pressure Position [Left Arm] Pulse Oximetry 93 93 93 Oxygen Delivery Method Sepsis Recent Fever Within 48 Hours Sepsis New/Unexplained Change in Mental Status Sepsis Action Taken by Nursing 12/07/21 06:22 12/07/21 06:30 12/07/21 06:33 Temperature 36.8 C Temperature Source Oral Pulse Rate 74 80 Pulse Rate [Finger] 77 Pulse Rate from SpO2 Sensor 74 79 Pulse Rhythm [Finger] Regular Pulse Strength [Finger] Normal Respiratory Rate 18 22 14 Respiratory Effort / Characteristics Non-Labored Spontaneous Respiratory Depth Normal Blood Pressure 64/47 L 117/90 Blood Pressure [Left Arm] 142/78 H Blood Pressure Mean 52 99 Blood Pressure Mean [Left Arm] 99 Blood Pressure Position [Left Arm] Lying Pulse Oximetry 96 97 97 Oxygen Delivery Method Room Air Sepsis Recent Fever Within 48 Hours Sepsis New/Unexplained Change in Mental Status Sepsis Action Taken by Nursing 12/07/21 06:40 12/07/21 06:50 12/07/21 07:00 Temperature Temperature Source Pulse Rate 65 59 L 67 Pulse Rate [Finger] Pulse Rate from SpO2 Sensor 63 59 L 68 Pulse Rhythm [Finger] Pulse Strength [Finger] Respiratory Rate 16 13 16 Respiratory Effort / Characteristics Respiratory Depth Blood Pressure 136/63 Blood Pressure [Left Arm] Blood Pressure Mean 87 Blood Pressure Mean [Left Arm] Blood Pressure Position [Left Arm] Pulse Oximetry 97 93 94 Oxygen Delivery Method Sepsis Recent Fever Within 48 Hours Sepsis New/Unexplained Change in Mental Status Sepsis Action Taken by Nursing 12/07/21 07:10 12/07/21 07:20 12/07/21 07:30 Temperature Temperature Source Pulse Rate 66 64 62 Pulse Rate [Finger] Pulse Rate from SpO2 Sensor 64 66 60 Pulse Rhythm [Finger] Pulse Strength [Finger] Respiratory Rate 14 13 13 Respiratory Effort / Characteristics Respiratory Depth Blood Pressure 138/69 Blood Pressure [Left Arm] Blood Pressure Mean 92 Blood Pressure Mean [Left Arm] Blood Pressure Position [Left Arm] Pulse Oximetry 93 93 96 Oxygen Delivery Method Sepsis Recent Fever Within 48 Hours Sepsis New/Unexplained Change in Mental Status Sepsis Action Taken by [facility] Medications Current Medication List: was personally reviewed by me Laboratory Data Attestation: I reviewed the patient's lab results. Result diagrams: 12/08/21 05:27 12/08/21 05:27 Lab Results 12/07/21 12/07/21 12/07/21 Range/Units 02:39 02:51 02:51 WBC 7.59 (4.8-10.8) K/uL RBC 4.62 L (4.7-6.1) M/uL Hgb 14.2 (14.0-18.0) g/dL Hct 43.4 (42-52) % MCV 93.9 (80-100) fL MCH 30.7 (25-34) pg MCHC 32.7 (32-36) g/dL RDW Std Deviation 45.0 (36.4-46.3) fL RDW Coeff of Agustín 13.1 (11.5-14.5) % Plt Count 230 (130-400) K/uL MPV 9.6 (7.4-10.4) fL Immature Gran % (Auto) 0.4 % Neut % (Auto) 78.5 % Lymph % (Auto) 9.2 % Barry % (Auto) 10.5 % Eos % (Auto) 1.1 % Baso % (Auto) 0.3 % Neut # (Auto) 5.96 (1.4-6.5) K/uL Lymph # (Auto) 0.70 L (1.2-3.4) K/uL Barry # (Auto) 0.80 H (0.11-0.59) K/uL Eos # (Auto) 0.08 (0-0.5) K/uL Baso # (Auto) 0.02 (0-0.2) K/uL Immature Gran # (Auto) 0.03 H (0.00-0.02) K/uL Sodium 137 (136-145) mmol/L Potassium 4.1 (3.5-5.1) mmol/L Chloride 100 (98-107) mmol/L Carbon Dioxide 29 (21-32) mmol/L Anion Gap 8 (3-11) BUN 26 H (6-23) mg/dl Creatinine 1.07 (0.6-1.4) mg/dl Est Cr Clr Drug Dosing 60.8 ml/min Est GFR ( Amer) 75.1 ml/min Est GFR (Non-Af Amer) 64.8 ml/min BUN/Creatinine Ratio 24.3 H (10-20) Glucose 132 H (70-99(Fasting)) mg/dl Lactate (0.4-2.0) mmol/L Calcium 9.4 (8.5-10.1) mg/dl Magnesium 2.0 (1.7-2.4) mg/dl Total Bilirubin 0.4 (0.2-1.0) mg/dl AST 29 (13-39) U/L ALT 14 (7-52) U/L Alkaline Phosphatase 78 (34-104) U/L Troponin I 0.03 (0-0.04) ng/ml Total Protein 7.3 (6.0-8.3) gm/dl Albumin 4.3 (3.4-5.0) gm/dl Globulin 3.0 (2.5-4.0) gm/dl Albumin/Globulin Ratio 1.4 (0.9-2) TSH (0.300-4.500) uIu/ml SARS-CoV-2, RNA, NAAT POSITIVE A* (NEGATIVE) 12/07/21 12/07/21 Range/Units 02:51 02:51 WBC (4.8-10.8) K/uL RBC (4.7-6.1) M/uL Hgb (14.0-18.0) g/dL Hct (42-52) % MCV (80-100) fL MCH (25-34) pg MCHC (32-36) g/dL RDW Std Deviation (36.4-46.3) fL RDW Coeff of Agustín (11.5-14.5) % Plt Count (130-400) K/uL MPV (7.4-10.4) fL Immature Gran % (Auto) % Neut % (Auto) % Lymph % (Auto) % Barry % (Auto) % Eos % (Auto) % Baso % (Auto) % Neut # (Auto) (1.4-6.5) K/uL Lymph # (Auto) (1.2-3.4) K/uL Barry # (Auto) (0.11-0.59) K/uL Eos # (Auto) (0-0.5) K/uL Baso # (Auto) (0-0.2) K/uL Immature Gran # (Auto) (0.00-0.02) K/uL Sodium (136-145) mmol/L Potassium (3.5-5.1) mmol/L Chloride (98-107) mmol/L Carbon Dioxide (21-32) mmol/L Anion Gap (3-11) BUN (6-23) mg/dl Creatinine (0.6-1.4) mg/dl Est Cr Clr Drug Dosing ml/min Est GFR ( Amer) ml/min Est GFR (Non-Af Amer) ml/min BUN/Creatinine Ratio (10-20) Glucose (70-99(Fasting)) mg/dl Lactate 1.2 (0.4-2.0) mmol/L Calcium (8.5-10.1) mg/dl Magnesium (1.7-2.4) mg/dl Total Bilirubin (0.2-1.0) mg/dl AST (13-39) U/L ALT (7-52) U/L Alkaline Phosphatase (34-104) U/L Troponin I (0-0.04) ng/ml Total Protein (6.0-8.3) gm/dl Albumin (3.4-5.0) gm/dl Globulin (2.5-4.0) gm/dl Albumin/Globulin Ratio (0.9-2) TSH 1.406 (0.300-4.500) uIu/ml SARS-CoV-2, RNA, NAAT (NEGATIVE) Administered Medications Discontinued Medications Acetaminophen (Acetaminophen 325 Mg Tab) 650 mg PO NOW STA Stop: 12/07/21 02:22 Last Admin: 12/07/21 02:56 Dose: 650 mg Documented by: [id number] Aspirin (Aspirin 325 Mg Ectab) 325 mg PO DAILY [facility] Stop: 01/06/22 08:59 Last Admin: 12/08/21 08:38 Dose: 325 mg Documented by: [id number] Admin: 12/07/21 11:10 Dose: 325 mg Documented by: [id number] Atorvastatin Calcium (Atorvastatin 40 Mg Tab) 40 mg PO DAILY [facility] Stop: 01/06/22 08:59 Last Admin: 12/08/21 08:38 Dose: 40 mg Documented by: [id number] Admin: 12/07/21 09:17 Dose: 40 mg Documented by: [id number] Carbamazepine (Carbamazepine 200 Mg Tablet) 200 mg PO TID [facility] Stop: 01/06/22 08:59 Last Admin: 12/08/21 13:27 Dose: 200 mg Documented by: [id number] Admin: 12/08/21 08:37 Dose: 200 mg Documented by: [id number] Admin: 12/07/21 20:40 Dose: 200 mg Documented by: [id number] Admin: 12/07/21 13:45 Dose: 200 mg Documented by: [id number] Admin: 12/07/21 09:17 Dose: 200 mg Documented by: [id number] Doxycycline Hyclate (Doxycycline Hyclate 50 Mg Cap) 50 mg PO ONE ONE Stop: 12/07/21 11:01 Last Admin: 12/07/21 11:10 Dose: 50 mg Documented by: [id number] Doxycycline Hyclate (Doxycycline Hyclate 50 Mg Cap) 50 mg PO QAM [facility] Stop: 01/07/22 08:59 Last Admin: 12/08/21 08:38 Dose: 50 mg Documented by: [id number] Enoxaparin Sodium (Enoxaparin Inj 40 Mg/0.4 Ml Syr) 40 mg SQ Q24H [facility] Stop: 01/06/22 08:59 Last Admin: 12/08/21 08:39 Dose: 40 mg Documented by: [id number] Admin: 12/07/21 11:11 Dose: 40 mg Documented by: [id number] Gabapentin (Gabapentin 300 Mg Cap) 900 mg PO 1130,1630 [facility] Stop: 01/06/22 11:29 Last Admin: 12/08/21 11:33 Dose: 900 mg Documented by: [id number] Admin: 12/07/21 16:39 Dose: 900 mg Documented by: [id number] Admin: 12/07/21 11:11 Dose: 900 mg Documented by: [id number] Gabapentin (Gabapentin 600 Mg Tab) 600 mg PO 0730,2100 [facility] Stop: 01/06/22 08:29 Last Admin: 12/08/21 08:38 Dose: 600 mg Documented by: [id number] Admin: 12/07/21 20:40 Dose: 600 mg Documented by: [id number] Admin: 12/07/21 11:06 Dose: Not Given Documented by: [id number] Hydrochlorothiazide (Hydrochlorothiazide 25 Mg Tab) 25 mg PO DAILY [facility] Stop: 01/06/22 08:59 Last Admin: 12/08/21 08:38 Dose: 25 mg Documented by: [id number] Admin: 12/07/21 11:10 Dose: 25 mg Documented by: [id number] Sodium Chloride (Nss 1000ml) 1,000 mls @ 125 mls/hr IV .Q8H [facility] Stop: 12/07/21 10:29 Last Infusion: 12/07/21 07:50 Dose: 0 mls/hr Documented by: [id number] Admin: 12/07/21 03:39 Dose: 125 mls/hr Documented by: [id number] Metoprolol Tartrate (Metoprolol Tartrate 50 Mg Tab) 50 mg PO DAILY [facility] Stop: 01/06/22 08:59 Last Admin: 12/07/21 11:12 Dose: Not Given Documented by: [id number] Metoprolol Tartrate (Metoprolol Tartrate 50 Mg Tab) 50 mg PO [facility] Stop: 01/06/22 20:59 Last Admin: 12/07/21 20:42 Dose: 50 mg Documented by: [id number] Tamsulosin HCl (Tamsulosin Hcl 0.4 Mg Cap) 0.4 mg PO DAILY [facility] Stop: 01/06/22 08:59 Last Admin: 12/08/21 08:38 Dose: 0.4 mg Documented by: [id number] Admin: 12/07/21 11:11 Dose: 0.4 mg Documented by: [id number] Valsartan (Valsartan 80 Mg Tab) 160 mg PO DAILY [facility] Stop: 01/06/22 08:59 Last Admin: 12/08/21 08:38 Dose: 160 mg Documented by: [id number] Admin: 12/07/21 11:10 Dose: 160 mg Documented by: [id number] Imaging Data Radiologist's Impression: Chest X-Ray 12/07/21 02:21 XR chest 1V portable HISTORY: 81 years-old Male weakness acute weakness COMPARISON: Chest radiographs 09/11/2016 TECHNIQUE: Portable AP view of the chest FINDINGS: Cardiac silhouette is enlarged. Prior median sternotomy and CABG. No pneumothorax or large pleural effusion. Chronic interstitial coarsening of the lung bases. No overt pulmonary edema. Degenerative changes of the shoulders and spine. IMPRESSION: 1. Cardiomegaly without overt pulmonary edema. 2. Chronic interstitial coarsening of the lung bases. ACT 112: Negative or not required by law. The above report was generated using voice recognition software. It may contain grammatical, syntax or spelling errors. Electronically signed by: Tiago Burch M.D. 12/07/2021 6:46 AM Blood Pressure Blood Pressure Findings: Elevated blood pressure Blood Pressure Disposition: Referred to patients primary care provider Discharge Plan Visit Data Chief Complaint: Weakness Stated Complaint: weakness ED Provider: Irma Baeza Discharge Problem: COVID-19, Weakness, Frequent falls Patient Disposition: Admitted As Inpatient Discharge Instructions Interventions: ED Discharge Assessment Last Done: 12/07/21 09:44
[2021-12-07] MEDS ORDERED: ACETAMINOPHEN 325 MG TAB PO PRN (08:15)
[2021-12-07] MEDS ORDERED: METOPROLOL TARTRATE 50 MG TAB PO SCH ×2 (09:00→21:00)
[2021-12-07] MEDS: ATORVASTATIN 40 MG TAB PO SCH (09:17)
[2021-12-07] MEDS: carBAMazepine 200 MG TABLET PO SCH ×3 (09:17→20:40)
[2021-12-07 10:02] LABS: Appearance Urine Clear (Clear); Bacteria Urine Automated Negative (Negative); Bilirubin Urine Negative (Negative); Blood Urine 2+ (Negative); Color Urine Yellow; Epithelial Cell Urine Auto 0-5 /lpf (0-5); Glucose Urine UA Negative (Negative); Ketones Urine Negative (Negative); Leukocyte Esterase Urine Negative (Negative); Nitrite Urine Negative (Negative); Protein Urine Negative (Negative); RBC Urine Automated 0-4 /hpf (0-4); Specific Gravity Urine 1.016 (1.000-1.030); Urobilinogen Urine Negative (Negative); WBC Urine Automated 0 /hpf (0-5)
[2021-12-07] MEDS ORDERED: DOXYCYCLINE HYCLATE 50 MG CAP PO ONE (11:00)
[2021-12-07] MEDS: GABAPENTIN 600 MG TAB PO SCH ×2 (11:06→20:40)
[2021-12-07] MEDS: hydroCHLOROthiazide 25 MG TAB PO SCH (11:10)
[2021-12-07] MEDS: ASPIRIN 325 MG ECTAB PO SCH (11:10)
[2021-12-07] MEDS: VALSARTAN 80 MG TAB PO SCH (11:10)
[2021-12-07] MEDS: ENOXAPARIN INJ 40 MG/0.4 ML SYR SQ SCH (11:11)
[2021-12-07] MEDS: GABAPENTIN 300 MG CAP PO SCH ×2 (11:11→16:39)
[2021-12-07] MEDS: TAMSULOSIN HCL 0.4 MG CAP PO SCH (11:11)
[2021-12-07] MEDS ORDERED: Nursing to Pharmacy Communication SCH (11:15)
--- NOTE | 2021-12-07 14:03 | Electrocardiogram Report ---
Test Reason : Blood Pressure : / mmHG Vent. Rate : 068 BPM Atrial Rate : 068 BPM P-R Int : 222 ms QRS Dur : 086 ms QT Int : 392 ms P-R-T Axes : 023 -06 012 degrees QTc Int : 416 ms Sinus rhythm with 1st degree A-V block Otherwise normal ECG When compared with ECG of 01-JAN-2021 09:00, Premature atrial complexes are no longer Present WI interval has increased Minimal criteria for Inferior infarct are no longer Present Confirmed by Anmol Humphries ([id number]) on 12/07/2021 2:03:38 PM Referred By: REFERRED SELF Confirmed By:Jericho Humphries
--- NOTE | 2021-12-07 15:52 | Hospitalist Progress Note ---
Date of Service December 07, 2021 Assessment & Plan (1) Weakness: Plan: Patient complaining of generalized weakness resulting in fall x 2 at home. Concerned that he is unable to go home and climb the stairs and perform ADLs. Weakness most likely secondary to Covid-19 infection. Electrolytes and renal function are WNL -Fall precautions -Check orthostatic VS -PT/OT eval -May benefit from short stay in rehab (2) COVID-19: Plan: Patient is fully vaccinated & boosted. Contact with daughter who recently tested positive. No cough, SOB, fever or hypoxia -No indication for steroid treatment as patient is presently not hypoxic - is 96% on room air -Monitor oxygenation -Completely asymptomatic -Isolation precautions as outlined by infection control (3) HTN (hypertension): Plan: Chronic -Continue Valsartan/HCTZ -Continue Metoprolol (4) Dyslipidemia: Plan: Chronic -Continue Atorvastatin (5) CAD (coronary artery disease): Plan: No CP, palpitations SOB -Continue ASA, Metoprolol, Atorvastatin and Losartan (6) Benign enlargement of prostate: Plan: Chronic -Continue Flomax Plan: Await PT/OT eval to assist in d/c planning AM labs Orthostatic VS DVT ppx w/ Lovenox Admission and Anticipated Discharge Date Admission Date: December 07, 2021 Subjective Pt was seen on rounds this morning. He was admitted around 0400 this AM after presenting to the ER w/ cc weakness. He stated that he fell twice at home. Concerned about going home. Ended up testing positive for COVID-19 but has no symptoms. Exposed through his daughter who was positive and lives with him. He has been fully vaccinated and boosted. Review of Systems Review of Systems: CONSTITUTIONAL: +generalized weakness. Denies weight loss/gain, fever and chills, fatigue, malaise. HEENT: Denies changes in vision and hearing. RESPIRATORY: Denies SOB, cough, wheezing. CV: Denies palpitations, CP, lower extremity edema, orthopnea, PND. GI: Denies abdominal pain, nausea, vomiting and diarrhea. : Denies dysuria and urinary frequency, urgency, hesitancy. MUSCULOSKELETAL: Fall x2, no injury. Denies myalgia and joint pain. SKIN: Denies rash and pruritus. NEUROLOGICAL: Denies headache, syncope, focal weakness, numbness, tingling. PSYCHIATRIC: Denies recent changes in mood. Denies anxiety and depression. Physical Exam Physical Exam: GENERAL: 81 yo well-developed, well-nourished elderly WM. NAD. LUNGS: Clear to auscultation bilaterally. No accessory muscle use. No W/R/R. CARDIOVASCULAR: Regular rate and rhythm. No M/G/R. No JVD. ABDOMEN: Soft, non-tender, normal BS x 4 quad. EXTREMITIES: No edema. Non-tender. Peripheral pulses +2/4. NEUROLOGIC: A&O x3. PSYCHIATRIC: Cooperative. Appropriate mood and affect. SKIN: Warm, dry, intact. No rashes or lesions. Results & Data Results & Data ([facility]) Vital Signs (Past 12 Hours) Vital Signs Temp Pulse Pulse Resp BP BP BP 12/07/21 13:44 36.3 C L 73 16 148/73 H 12/07/21 08:16 36.7 C 59 L 18 123/75 12/07/21 07:30 62 13 138/69 12/07/21 07:20 64 13 12/07/21 07:10 66 14 12/07/21 07:00 67 16 136/63 12/07/21 06:50 59 L 13 12/07/21 06:40 65 16 12/07/21 06:33 80 14 117/90 12/07/21 06:30 74 22 64/47 L 12/07/21 06:22 36.8 C 77 18 142/78 H 12/07/21 06:20 73 14 12/07/21 06:10 74 17 12/07/21 06:00 70 16 142/78 H 12/07/21 05:50 61 14 12/07/21 05:40 70 15 12/07/21 05:30 72 14 140/75 12/07/21 05:20 65 14 12/07/21 05:10 67 14 12/07/21 05:00 70 13 134/71 12/07/21 04:50 70 15 12/07/21 04:40 69 17 12/07/21 04:30 63 12 130/75 12/07/21 04:28 74 18 140/70 12/07/21 04:20 70 21 12/07/21 04:10 62 15 12/07/21 04:00 66 18 140/70 12/07/21 03:50 62 15 Pulse Ox 12/07/21 13:44 97 12/07/21 08:16 98 12/07/21 07:30 96 12/07/21 07:20 93 12/07/21 07:10 93 12/07/21 07:00 94 12/07/21 06:50 93 12/07/21 06:40 97 12/07/21 06:33 97 12/07/21 06:30 97 12/07/21 06:22 96 12/07/21 06:20 93 12/07/21 06:10 93 12/07/21 06:00 93 12/07/21 05:50 97 12/07/21 05:40 96 12/07/21 05:30 92 12/07/21 05:20 92 12/07/21 05:10 92 12/07/21 05:00 91 12/07/21 04:50 94 12/07/21 04:40 94 12/07/21 04:30 95 12/07/21 04:28 96 12/07/21 04:20 12/07/21 04:10 92 12/07/21 04:00 12/07/21 03:50 95 Laboratory Results 12/07/21 02:51 12/07/21 02:51 PG Care Time/CCT Total # of Minutes Spent Total Time Spent with Patient: Total time spent is greater than 50% in coordination of care (as documented) at patient's floor/unit and/or counseling patient: Coding Level of Care Code None Diagnoses Weakness R53.1 COVID-19 U07.1 HTN (hypertension) I10 Dyslipidemia E78.5 CAD (coronary artery disease) I25.10 Benign enlargement of prostate N40.0
[2021-12-08 06:02] LABS: Basophils # (auto) 0.02 K/uL (0-0.2); Basophils % (auto) 0.3 %; Eosinophils # (auto) 0.24 K/uL (0-0.5); Eosinophils % (auto) 3.8 %; Hematocrit (blood only) 39.5 % (42-52); Hemoglobin 13.4 g/dL (14.0-18.0); Immature Granulocytes # (auto) 0.02 K/uL (0.00-0.02); Immature Granulocytes % (auto) 0.3 %; Lymphocytes # (auto) 1.32 K/uL (1.2-3.4); Lymphocytes % (auto) 20.7 %; Mean Corpuscular Hemoglobin 31.5 pg (25-34); Mean Corpuscular Hgb Conc 33.9 g/dL (32-36); Mean Corpuscular Volume 92.9 fL (80-100); Mean Platelet Volume 9.5 fL (7.4-10.4); Monocytes # (auto) 0.84 K/uL (0.11-0.59); Monocytes % (auto) 13.1 %; Neutrophils # (auto) 3.95 K/uL (1.4-6.5); Neutrophils % (auto) 61.8 %; Platelet Count 201 K/uL (130-400); RDW Coefficient of Variation 13.5 % (11.5-14.5); RDW Standard Deviation 45.8 fL (36.4-46.3); Red Blood Count 4.25 M/uL (4.7-6.1); White Blood Count 6.39 K/uL (4.8-10.8)
[2021-12-08 06:24] LABS: BUN Creatinine Ratio 24.4 (10-20); Calcium 8.5 mg/dl (8.5-10.1); Creatinine Clr Calc Pharmacy 75.7 ml/min; Est GFR (African American) 94.3 ml/min; Est GFR (Non-African American) 81.3 ml/min; Potassium 3.8 mmol/L (3.5-5.1)
[2021-12-08] MEDS: carBAMazepine 200 MG TABLET PO SCH ×2 (08:37→13:27)
[2021-12-08] MEDS: ASPIRIN 325 MG ECTAB PO SCH (08:38)
[2021-12-08] MEDS: TAMSULOSIN HCL 0.4 MG CAP PO SCH (08:38)
[2021-12-08] MEDS: ATORVASTATIN 40 MG TAB PO SCH (08:38)
[2021-12-08] MEDS: GABAPENTIN 600 MG TAB PO SCH (08:38)
[2021-12-08] MEDS: hydroCHLOROthiazide 25 MG TAB PO SCH (08:38)
[2021-12-08] MEDS: VALSARTAN 80 MG TAB PO SCH (08:38)
[2021-12-08] MEDS: ENOXAPARIN INJ 40 MG/0.4 ML SYR SQ SCH (08:39)
[2021-12-08] MEDS ORDERED: DOXYCYCLINE HYCLATE 50 MG CAP PO SCH (09:00)
[2021-12-08] MEDS: GABAPENTIN 300 MG CAP PO SCH (11:33)
--- NOTE | 2021-12-08 12:27 | Discharge Summary ---
Date of Service December 08, 2021 Admission HPI Per Admitting Provider Harry Gtz is an 81yo male with history of HTN, CAD presenting with dizziness and fall at home. Patient was in his usual state of health today. He was sorting some tools when he became dizzy and passed fell. He did not lose consciousness, did not strike his head. He denies chest pain, palpitations preceding or following the fall. He states he feels very weak. Difficulty ambulating. No additional complaints. Patient's daughter tested positive for Covid-19 yesterday. Patient denies fever, chills, cough, SOB, abdominal pain, nausea, vomiting, diarrhea or constipation. In the ER he is afebrile, HD stable, no hypoxia ER Course: Tylenol, NSS x 1L Principal Diagnosis Debility/generalized weakness COVID-19 Discharge Exam GENERAL: 81 yo well-developed, well-nourished elderly WM. NAD. LUNGS: Clear to auscultation bilaterally. No accessory muscle use. No W/R/R. CARDIOVASCULAR: Regular rate and rhythm. No M/G/R. No JVD. ABDOMEN: Soft, non-tender, normal BS x 4 quad. EXTREMITIES: No edema. Non-tender. Peripheral pulses +2/4. NEUROLOGIC: A&O x3. PSYCHIATRIC: Cooperative. Appropriate mood and affect. SKIN: Warm, dry, intact. No rashes or lesions. Discharge Data Allergies Allergy/AdvReac Type Severity Reaction Status Date / Time lisinopril AdvReac Mild Cough Verified 10/01/21 21:18 Consultations 12/07/21 03:56 ED Decision to Admit Stat Procedures Performed none Ordered Studies Chest X-Ray 12/07/21 02:21 XR chest 1V portable HISTORY: 81 years-old Male weakness acute weakness COMPARISON: Chest radiographs 09/11/2016 TECHNIQUE: Portable AP view of the chest FINDINGS: Cardiac silhouette is enlarged. Prior median sternotomy and CABG. No pneumothorax or large pleural effusion. Chronic interstitial coarsening of the lung bases. No overt pulmonary edema. Degenerative changes of the shoulders and spine. IMPRESSION: 1. Cardiomegaly without overt pulmonary edema. 2. Chronic interstitial coarsening of the lung bases. ACT 112: Negative or not required by law. The above report was generated using voice recognition software. It may contain grammatical, syntax or spelling errors. Electronically signed by: Tiago Burch M.D. 12/07/2021 6:46 AM Hospital Course (1) Weakness: Patient complaining of generalized weakness resulting in fall x 2 at home. Concerned that he is unable to go home and climb the stairs and perform ADLs. Weakness most likely secondary to Covid-19 infection. -Fall precautions were instituted -orthostatic VS were WNL -PT/OT eval ordered, determined he could be safely discharged home w/ home health (2) COVID-19: Patient is fully vaccinated & boosted. Contact with daughter who recently tested positive. No cough, SOB, fever or hypoxia -No indication for steroid treatment as patient is presently not hypoxic (3) HTN (hypertension): Chronic -Continue Valsartan/HCTZ -Continue Metoprolol (4) Dyslipidemia: Chronic -Continue Atorvastatin (5) CAD (coronary artery disease): No CP, palpitations SOB -Continue ASA, Metoprolol, Atorvastatin and Losartan (6) Benign enlargement of prostate: Chronic -Continue Flomax At this time, pt is felt to be medically and hemodynamically stable for discharge home with home health. Case management will arrange for home health services including pt/ot and nursing. Nursing will be able to spot check oxygen. Total Time Total Time Spent Total Time Spent (In Minutes): <30 minutes Discharge Plan Discharge Items Patient Disposition: Home - Home Health Services Reason For Visit: COVID-19,WEAKNESS Discharge Diagnosis: Generalied weakness Activity: As commented below Activity Comment: As tolerated w/ walker Non-emergency contact: Primary Care Provider Call non-emergency contact if: you have any medication questions and your symptoms worsen Follow-up/Referrals: Yunier Rangel III, MD [Primary Care Provider] - Diet: Heart Healthy Addtl Attending Provider Instructions: * Take all of your medications as prescribed prior to hospitalization. * Your weakness is likely due to being currently infected with COVID-19. * Would advise home health to follow up with you post-discharge which would include visits from physical and occupational therapy * Currently, you are not having any respiratory symptoms related to your COVID- 19 which indicates that you are not a candidate for any medications to treat your COVID. * Could consider taking over the counter Vitamin C and Zinc at home. * Follow up with your family doctor within 1 week of discharge. * You will only need isolate for a total of 5 days from the day you tested positive. Isolation will be complete on 12/11. Pending Studies at Discharge: No Stand-Alone Forms: [facility], Smoking Cessation Medications and DC Order Prescriptions: Continued metoprolol tartrate 50 mg tablet 50 mg PO DAILY Qty: 90 RF: 3 nitroglycerin 0.4 mg tablet, sublingual 0.4 mg SL Q5M PRN (Reason: chest pain) Qty: 25 RF: 3 valsartan-hydrochlorothiazide 160-25 mg tablet 1 tab PO DAILY Qty: 90 RF: 3 atorvastatin 40 mg tablet 40 mg PO DAILY Qty: 90 RF: 3 gabapentin 300 mg capsule 600 mg PO .BID/UD RF: 0 solifenacin [Vesicare] 5 mg tablet 5 mg PO DAILY Qty: 90 RF: 3 tamsulosin 0.4 mg capsule 0.4 mg PO DAILY Qty: 90 RF: 3 aspirin 325 mg tablet,delayed release (DR/EC) 325 mg PO DAILY RF: 0 omega-3 acid ethyl esters 1 gram capsule 1 cap PO BID RF: 0 [id number] 348-300 mg capsule 1 cap PO BID RF: 0 acetaminophen 325 mg Tablet 650 mg PO Q4H PRN (Reason: pain) Qty: 30 RF: 0 amoxicillin 500 mg capsule 2,000 mg PO .UD/PRN PRN (Reason: Prophylaxis) RF: 0 gabapentin 300 mg capsule 900 mg PO .BID/UD RF: 0 carbamazepine 200 mg tablet 200 mg PO TID RF: 0 Myrbetriq 25 mg PO DAILY RF: 0 doxycycline hyclate 50 mg PO DAILY RF: 0 Discharge Orders: Discharge Order (Routine); Ordered 12/08/21 Ordered By: Josselin Elias Admission Data Admit Date/Time: 12/07/21 04:08 Attending Provider: Yovanny Brian Admit Provider: Roxane Weston Primary Care Provider: Yunier Rangel III Other Providers: Roxane Weston ; [facility] Other Interventions: Discharge Summary Assessment (RN) Last Done: 12/08/21 13:28 Supervising Physician Co-Signing Physician Notes Patient seen and examined, chart reviewed, case discussed with Josselin Elias PA-C and I agree with the assessment and plan as above General: A&Ox3. NAD. Cooperative. HEENT: Atraumatic, normocephalic. Vision/hearing grossly intact. Pulm: CTAB A&P. -wheezes, -rales, -rhonchi. Symmetrical chest rise. No increase work of breathing. No respiratory distress. Cardiac: RRR, -mrg. Radial pulses intact and symmetrical. Abdominal: Nontender, nondistended, soft. BS present. All labs and images reviewed Time spent day of discharge 20 minutes including documentation, discussion of care with PA, patient exam, and review or labs and images. Coding Level of Care Code 48534 OBS Care - Discharge Diagnoses Weakness R53.1 COVID-19 U07.1 HTN (hypertension) I10 Dyslipidemia E78.5 CAD (coronary artery disease) I25.10 Benign enlargement of prostate N40.0 Home Health Attestation I certify that this patient is under my care and that I, or a physicians ass istant working with me, had a face to-face encounter that meets the home health [id number] encounter requirements with this patient. The encounter with the patient was in whole, or in part, for the following medical condition, which is the primary reason for home health care (list medical condition): Covid-19 I certify that, based on my findings, the following services are medically necessary home health services: My clinical findings support the need for the above services because: PT Assessment for Endurance / Balance / Strength PT Eval for Safety and Mobility PT Eval for Safety, Gait Training, Assistive Devices PT Gait and Balance Training, Strengthening and Safety Skilled Nsg Assessment Skilled Nsg Assess Pt Illness, Disease and Sx Monitoring Further, I certify that my clinical findings support that this patient is homebound (i.e. absences from home require considerable and taxing effort and are for medical reasons or sabianism services or infrequently or of short duration when for other reasons) because: Transportation Assistance/Unable to Leave Home Unassisted Certification for Home Health Services: Based on the above findings, I certify that this patient is confined to the home and needs intermittent assisted care, physical therapy and/or speech therapy or continues to need occupational therapy. The patient is under my care, and I have initiated the establishment of the plan of care. This patient will be followed by a physician who will periodically review the plan of care.
== END 2021-12-08 14:26 | disposition home health service (06) ==
LOC: 3E 02:07 → ED 02:07 → SUATTDRO 04:08 → 3E 09:44
DX: I25.10 Atherosclerotic heart disease of native coronary artery without angina pectoris; Z79.82 Long term (current) use of aspirin; I10 Essential (primary) hypertension; U07.1 COVID-19; Z88.8 Allergy status to other drugs, medicaments and biological substances; Z79.899 Other long term (current) drug therapy; N40.0 Benign prostatic hyperplasia without lower urinary tract symptoms; R53.1 Weakness; E78.5 Hyperlipidemia, unspecified

== ENCOUNTER 2022-04-16 12:39 | Inpatient (IN) ==
--- NOTE | 2022-04-16 15:39 | Emergency Department Note ---
History of Present Illness General Chief complaint: Facial Injury/Pain Stated complaint: MYALGIA ON FACE Time Seen by Provider: 04/16/22 15:05 History of Present Illness Maximum Pain Intensity: 5 This is an 81-year-old male who presents to the ED with a chief complaint of right-sided facial pain. The patient states that he has had the pain for about 4 days. He was seen 4 days ago and received an steroid injection by pain management. He has a history of trigeminal neuralgia as a cause for his pain. Patient was seen here 2 days ago and received some pain medication for symptoms. The patient was evaluated by his neurologist, Dr. Newton. He was prescribed 10 mg oxycodone tablets. He states that his pain is not as bad at the moment. The patient is chronically on Tegretol as well as gabapentin for his trigeminal neuralgia as well. He is returning today for ongoing discomfort since his pain medication did not seem to be working. The patient states that he came to the ED at the advice of Dr. Newton to be admitted to the hospital for his symptoms. Home Medications Medication Instructions Recorded Confirmed Type aspirin 325 mg tablet,delayed 325 mg PO DAILY tab 07/07/19 04/16/22 History release acetaminophen 325 mg tablet 650 mg PO Q4H PRN #30 tab 01/02/21 04/16/22 Rx nitroglycerin 0.4 mg sublingual 0.4 mg SL Q5M PRN #25 tab 01/16/21 04/16/22 Rx tablet atorvastatin 40 mg tablet 40 mg PO DAILY #90 tab 04/17/21 04/16/22 Rx tamsulosin 0.4 mg capsule 0.4 mg PO DAILY #90 cap 05/28/21 04/16/22 Rx solifenacin 5 mg tablet (Vesicare) 5 mg PO DAILY #90 tab 11/28/21 04/16/22 Rx carbamazepine 200 mg tablet 200 mg PO ACHS 12/07/21 04/16/22 History metoprolol tartrate 50 mg tablet 50 mg PO DAILY #90 tab 01/16/22 04/16/22 Rx valsartan 160 1 tab PO DAILY #90 tab 03/07/22 04/16/22 Rx mg-hydrochlorothiazide 25 mg tablet amoxicillin 500 mg capsule 2,000 mg PO DIRECTED PRN 04/14/22 04/16/22 History gabapentin 300 mg capsule See Rx Instructions .ROUTE .COMPLEX 04/14/22 04/16/22 History [id number]-[id number]-uus C-Mn 500 1 cap PO BID 04/14/22 04/16/22 History mg-400 mg capsule (Glucosamine Chondroitin Maximum Strength) oxycodone 10 mg tablet 10 mg PO UD PRN 04/16/22 04/16/22 History Allergies Allergy/AdvReac Type Severity Reaction Status Date / Time lisinopril AdvReac Mild Cough Verified 04/16/22 16:14 Past Med/Surg History Medical History Back pain Benign enlargement of prostate CAD (coronary artery disease) HTN (hypertension) Injury of left hand MGUS (monoclonal gammopathy of unknown significance) Peripheral neuropathy Rosacea Trigeminal neuralgia Surgical History History of ankle surgery History of carpal tunnel release of both wrists 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 with WALLER graft S/P inguinal hernia repair S/P knee replacement S/P tonsillectomy Family History Mother Hypertension Heart disease Diabetes Brother Parkinson disease Father Heart disease Social History Smoking Status: Never smoker Hx Alcohol Use: Yes Alcohol type: beer Hx Substance Use: No Preferred Language: Colombian Communication Ability: Effective Visual Impairment: No Limitations Hearing Ability: Normal Automatic Hemmer Required: No Beliefs That Will Affect Care: None marital status: Current Living Situation: Spouse and Family Current Living Situation Comment: Daughter, current occupational status: retired Feels Safe at Home: Yes caffeine: No Seatbelt Use: always Sunscreen Use: Yes Assistive Devices: Walker Review of Systems A total of 10 systems reviewed and were otherwise negative Physical Exam Vital Signs Vital Signs - 24 hr 04/16/22 13:14 04/16/22 16:27 04/16/22 18:17 Temperature 36.5 C Temperature Source Temporal Artery Scan Pulse Rate 91 H 68 Pulse Rate [Apical] 69 83 Respiratory Rate 18 20 17 Respiratory Effort / Characteristics Non-Labored Spontaneous Non-Labored Spontaneous Respiratory Depth Normal Normal Respiratory Pattern Regular Regular Blood Pressure 182/99 H Blood Pressure [Right Arm] 172/82 H 160/114 H Blood Pressure Mean 126 Blood Pressure Mean [Right Arm] 112 129 Blood Pressure Position Sitting Pulse Oximetry 97 95 97 Oxygen Delivery Method Room Air Room Air Sepsis Recent Fever Within 48 Hours No Sepsis New/Unexplained Change in Mental Status No Sepsis Action Taken by Nursing No Action Required CONSTITUTIONAL/VITAL SIGNS: Reviewed / noted above. GENERAL: Non-toxic in appearance. INTEGUMENTARY: Warm, dry, and [place]. HEAD: Normocephalic. EYES: without scleral icterus or trauma. ENT/OROPHARYNX: clear and moist. LYMPHADENOPATHY/NECK: Is supple without lymphadenopathy or meningismus. RESPIRATORY: Clear to auscultation bilaterally. No increased work of breathing. CARDIOVASCULAR: Regular rate and rhythm. GI/ABDOMEN: Soft and nontender. No organomegaly or pulsatile mass. EXTREMITIES: Warm and well perfused. BACK: No CVA tenderness. NEUROLOGICAL: Intact without focal deficits. PSYCHIATRIC: normal affect. MUSCULOSKELETAL: Normally developed with good muscle tone. TRIAGE NURSING DOCUMENTATION REVIEWED. Course Administered Medications Discontinued Medications Sodium Chloride (Nss 1000ml) 1,000 mls @ 999 mls/hr IV .Q1H1M GOLD Stop: 04/16/22 17:15 Last Infusion: 04/16/22 17:39 Dose: 0 mls/hr Documented by: [id number] Admin: 04/16/22 16:29 Dose: 999 mls/hr Documented by: [id number] Medical Decision Making Differential Diagnosis Differential includes trigeminal neuralgia, dental infection, cellulitis, shingles, other Medical Records Attestation: I reviewed the patient's medical records. Home Medications Current Medication List: was personally reviewed by me Laboratory Data Result diagrams: 04/16/22 16:28 04/16/22 16:28 Lab Results 04/16/22 04/16/22 04/16/22 Range/Units 16:28 16:28 16:28 WBC 9.71 (4.8-10.8) K/uL RBC 4.91 (4.7-6.1) M/uL Hgb 15.2 (14.0-18.0) g/dL Hct 44.3 (42-52) % MCV 90.2 (80-100) fL MCH 31.0 (25-34) pg MCHC 34.3 (32-36) g/dL RDW Std Deviation 42.5 (36.4-46.3) fL RDW Coeff of Agustín 13.0 (11.5-14.5) % Plt Count 218 (130-400) K/uL MPV 9.2 (7.4-10.4) fL Immature Gran % (Auto) 0.5 % Neut % (Auto) 71.6 % Lymph % (Auto) 16.2 % [place] % (Auto) 10.4 % Eos % (Auto) 1.1 % Baso % (Auto) 0.2 % Neut # (Auto) 6.95 H (1.4-6.5) K/uL Lymph # (Auto) 1.57 (1.2-3.4) K/uL [place] # (Auto) 1.01 H (0.11-0.59) K/uL Eos # (Auto) 0.11 (0-0.5) K/uL Baso # (Auto) 0.02 (0-0.2) K/uL Immature Gran # (Auto) 0.05 H (0.00-0.02) K/uL Sodium 140 (136-145) mmol/L Potassium 3.9 (3.5-5.1) mmol/L Chloride 102 (98-107) mmol/L Carbon Dioxide 31 (21-32) mmol/L Anion Gap 7 (3-11) BUN 20 (6-23) mg/dl Creatinine 1.03 (0.6-1.4) mg/dl Est Cr Clr Drug Dosing Not Reportable Est GFR ( Amer) 78.6 ml/min Est GFR (Non-Af Amer) 67.8 ml/min BUN/Creatinine Ratio 19.4 (10-20) Glucose 110 H (70-99(Fasting)) mg/dl Calcium 9.6 (8.5-10.1) mg/dl Total Bilirubin 0.6 (0.2-1.0) mg/dl AST 19 (13-39) U/L ALT 12 (7-52) U/L Alkaline Phosphatase 68 (34-104) U/L Troponin I High Sens (0-20) pg/ml Total Protein 7.2 (6.0-8.3) gm/dl Albumin 4.4 (3.4-5.0) gm/dl Globulin 2.8 (2.5-4.0) gm/dl Albumin/Globulin Ratio 1.6 (0.9-2) SARS-CoV-2, RNA, NAAT NEGATIVE (NEGATIVE) 04/16/22 Range/Units 16:28 WBC (4.8-10.8) K/uL RBC (4.7-6.1) M/uL Hgb (14.0-18.0) g/dL Hct (42-52) % MCV (80-100) fL MCH (25-34) pg MCHC (32-36) g/dL RDW Std Deviation (36.4-46.3) fL RDW Coeff of Agustín (11.5-14.5) % Plt Count (130-400) K/uL MPV (7.4-10.4) fL Immature Gran % (Auto) % Neut % (Auto) % Lymph % (Auto) % [place] % (Auto) % Eos % (Auto) % Baso % (Auto) % Neut # (Auto) (1.4-6.5) K/uL Lymph # (Auto) (1.2-3.4) K/uL [place] # (Auto) (0.11-0.59) K/uL Eos # (Auto) (0-0.5) K/uL Baso # (Auto) (0-0.2) K/uL Immature Gran # (Auto) (0.00-0.02) K/uL Sodium (136-145) mmol/L Potassium (3.5-5.1) mmol/L Chloride (98-107) mmol/L Carbon Dioxide (21-32) mmol/L Anion Gap (3-11) BUN (6-23) mg/dl Creatinine (0.6-1.4) mg/dl Est Cr Clr Drug Dosing Est GFR ( Amer) ml/min Est GFR (Non-Af Amer) ml/min BUN/Creatinine Ratio (10-20) Glucose (70-99(Fasting)) mg/dl Calcium (8.5-10.1) mg/dl Total Bilirubin (0.2-1.0) mg/dl AST (13-39) U/L ALT (7-52) U/L Alkaline Phosphatase (34-104) U/L Troponin I High Sens 66.8 H* (0-20) pg/ml Total Protein (6.0-8.3) gm/dl Albumin (3.4-5.0) gm/dl Globulin (2.5-4.0) gm/dl Albumin/Globulin Ratio (0.9-2) SARS-CoV-2, RNA, NAAT (NEGATIVE) ECG Data Additional Comments: 12 Lead EKG: Per my interpretation shows a sinus rhythm at a rate of 69.There are some T wave inversions in V1, V2 and V3. The inversions in V2 and V3 were not previously present. No ST elevation. No PVCs. Normal QTC peer MDM Narrative 81-year-old male presents to the ED with a chief complaint of trigeminal neuralgia. He states that he was sent to the emergency department today because of ongoing pain and at the advice of his neurologist to be admitted. The patient is supposed to have an ablation in May for his trigeminal neuralgia. His review of [facility] records and Dr. Moreno does recommend admitting the patient for pain control and IV fluids because he has concerns about the patient following. Patient CBC and chemistry panel was unremarkable. A COVID test was negative. EKG shows some T wave inversions anteriorly. The patient troponin is mildly elevated. Will be seen by the hospitalist for further evaluation and care. He was given aspirin p.o. and some IV fluids. He is not having any chest pains. Impression & Plan Trigeminal neuralgia, Non-ST elevation (NSTEMI) myocardial infarction Discharge Plan Visit Data Chief Complaint: Facial Injury/Pain Stated Complaint: MYALGIA ON FACE ED Provider: Yasir Villegas Discharge Problem: Trigeminal neuralgia, Non-ST elevation (NSTEMI) myocardial infarction Patient Disposition: Being Evaluated by Hospitalist Forms Stand Alone Forms: My [facility], Virtual Emergency Department, Important Visit Information Prescriptions Prescriptions: No Action nitroglycerin 0.4 mg tablet, sublingual 0.4 mg SL Q5M PRN (Reason: chest pain) Qty: 25 RF: 3 atorvastatin 40 mg tablet 40 mg PO DAILY Qty: 90 RF: 3 metoprolol tartrate 50 mg tablet 50 mg PO DAILY Qty: 90 RF: 3 valsartan-hydrochlorothiazide 160-25 mg tablet 1 tab PO DAILY Qty: 90 RF: 3 solifenacin [Vesicare] 5 mg tablet 5 mg PO DAILY Qty: 90 RF: 3 tamsulosin 0.4 mg capsule 0.4 mg PO DAILY Qty: 90 RF: 3 aspirin 325 mg tablet,delayed release (DR/EC) 325 mg PO DAILY RF: 0 acetaminophen 325 mg Tablet 650 mg PO Q4H PRN (Reason: pain) Qty: 30 RF: 0 carbamazepine 200 mg tablet 200 mg PO ACHS RF: 0 gabapentin 300 mg capsule See Rx Instructions .ROUTE .COMPLEX RF: 0 [id number]-[id number]-lra C-Mn [Glucosamine Chondroitin MaxStr] 500-400 mg Capsule 1 cap PO BID RF: 0 amoxicillin 500 mg capsule 2,000 mg PO DIRECTED PRN (Reason: Prophylaxis PRIOR TO DENTAL APPT.) RF: 0 oxycodone 10 mg tablet 10 mg PO UD PRN (Reason: Pain) RF: 0 Referrals Referrals: Lesa Monsivais PA-C [Primary Care Provider] -
[2022-04-16] MEDS ORDERED: SODIUM CHLORIDE 0.9% 1000ML 1,000 ML IV SCH (16:15)
[2022-04-16 16:39] LABS: Basophils # (auto) 0.02 K/uL (0-0.2); Basophils % (auto) 0.2 %; Eosinophils # (auto) 0.11 K/uL (0-0.5); Eosinophils % (auto) 1.1 %; Hematocrit (blood only) 44.3 % (42-52); Hemoglobin 15.2 g/dL (14.0-18.0); Immature Granulocytes # (auto) 0.05 K/uL (0.00-0.02); Immature Granulocytes % (auto) 0.5 %; Lymphocytes # (auto) 1.57 K/uL (1.2-3.4); Lymphocytes % (auto) 16.2 %; Mean Corpuscular Hgb Conc 34.3 g/dL (32-36); Mean Corpuscular Volume 90.2 fL (80-100); Mean Platelet Volume 9.2 fL (7.4-10.4); Monocytes # (auto) 1.01 K/uL (0.11-0.59); Monocytes % (auto) 10.4 %; Neutrophils # (auto) 6.95 K/uL (1.4-6.5); Neutrophils % (auto) 71.6 %; Platelet Count 218 K/uL (130-400); RDW Standard Deviation 42.5 fL (36.4-46.3); Red Blood Count 4.91 M/uL (4.7-6.1); White Blood Count 9.71 K/uL (4.8-10.8)
[2022-04-16 17:03] LABS: Alanine Aminotransferase 12 U/L (7-52); Albumin Globulin Ratio 1.6 (0.9-2); Albumin Level 4.4 gm/dl (3.4-5.0); Alkaline Phosphatase 68 U/L (34-104); Anion Gap 7 (3-11); Aspartate Aminotransferase 19 U/L (13-39); BUN Creatinine Ratio 19.4 (10-20); Bilirubin,Total 0.6 mg/dl (0.2-1.0); Blood Urea Nitrogen 20 mg/dl (6-23); Calcium 9.6 mg/dl (8.5-10.1); Carbon Dioxide 31 mmol/L (21-32); Chloride 102 mmol/L (98-107); Est GFR (African American) 78.6 ml/min; Est GFR (Non-African American) 67.8 ml/min; Globulin 2.8 gm/dl (2.5-4.0); Glucose 110 mg/dl (70-99(Fasting)); Potassium 3.9 mmol/L (3.5-5.1); Sodium 140 mmol/L (136-145); Total Protein 7.2 gm/dl (6.0-8.3)
--- NOTE | 2022-04-16 17:39 | History & Physical Report ---
Date of Service April 16, 2022 Assessment & Plan (1) Acute facial pain: Plan: 81 yo M with PMH trigeminal neuralgia, CAD s/p CABG, HTN, HLD, BPH presenting with R facial pain. Trigeminal neuralgia -Clinical history and exam suggest trigeminal neuralgia is most likely cause of pt's R facial pain, I do not suspect an infectious or MSK pathology at this time -Pain regimen as below. Pt states he can tolerate PO medication at present -Continue home Tegretol 200 mg QID. Tegretol level of 3.8 on 04/14. -Home regimen gabapentin- 100mg 2x in AM, 3x in midday, 2x in evening, 1x bedtime. Increased to 200mg at bedtime -Baclofen 5 mg given tonight, continue as 5 mg PRN -Tylenol 1000 mg q8h -Breakthrough pain- oxycodone 10 mg PRN -Consider addition of other anticonvulsants such as Lamictal/valproate pending response to this regimen -Consider basal pain regimen on discharge- possibly Nucynta ER until pt can receive his ablation procedure -Neurology consulted for AM Elevated troponins -Troponin HS on admission of 66. Admission EKG with new T wave inversions and RBB pattern -Suspect mildly elevated troponins are secondary to demand ischemia in the setting of acute pain in pt with known CAD s/p CABG -No current ACS symptoms at this time and hemodynamically stable (slightly elevated BPs), closely monitor -Will repeat troponin HS, recheck EKG in AM Coronary artery disease s/p CABG -Continue aspirin 325 mg daily, atorvastatin 40 mg -Increased metoprolol 50 mg daily to BID for elevated BPs Hypertension -Suspect elevated BPs are secondary to pain from trigeminal neuralgia -Increased metoprolol as above- metoprolol 50 mg BID -Continue valsartan/HCTZ 160/25 Dehydration -Pt slightly dehydrated on admission secondary to poor PO intake over past few days due to pain -IVF bolus given in ER -BMP reassuring, will hold off on mIVF at present and encourage PO intake as his pain control improves Left eye drainage -Possible conjunctivitis vs blepharitis -Erythromycin topical qHs Hyperlipidemia -Continue atorvastatin 40 mg Benign prostatic hyperplasia -Continue Flomax Overactive bladder -Continue Myrbetriq FENGI: Soft, easy to chew, heart-healthy Code status: Full DVT ppx: SCDs, Lovenox 40 mg daily Isolation: None Dispo: Medical/surgical with telemetry (2) CAD (coronary artery disease): (3) HTN (hypertension): (4) Dyslipidemia: (5) Trigeminal neuralgia: (6) Elevated troponin: History of Present Illness Chief Complaint: Right sided facial pain Primary Care Provider: Lesa Monsivais PA-C 81 yo M with PMH trigeminal neuralgia, CAD s/p CABG, HTN, HLD, BPH presenting with R facial pain. Pt was diagnosed with trigeminal neuralgia 5+ years ago and notes it has been largely on and off but gradually became worse over time- episodes increasing in frequency and severity. He notes this has been especially prominent over the pa st few weeks- pain would be triggered by multiple mundane actions including eating, talking and turning his mouth. Pt visited ER on 04/14 due to severe R facial pain and was treated with Toradol, discharged on oxycodone PRN. He has not been able to eat and drink much over the past few days. Last night, pt's pain was very severe- 10/10 and he took oxycodone 5 mg which provided minimal relief. This AM, he took oxycodone 10 mg which did provide moderate relief. He called his neurologist (Dr. Newton with [facility]) who advised him to come to ER. Currently he reports pain 5/10, no associated symptoms or other complaints. Pt's trigeminal neuralgia pain management over the past few years has evolved. Has been on gabapentin for about 3 years (currently 100 mg with complex timing- 800 mg total daily) and started Tegretol 200 mg QID a few months prior. Did note pain relief with Tegretol 200 mg QID but he also became dizzy and lightheaded since starting the medication, which prompted neurologist to initially reduce dose to 200 mg TID on 04/12 but was subsequently returned to QID on 04/14 due to pain severity. Pt has also received a series of 3 steroid injections thus far, most recent was on 04/12. He is scheduled for nerve ablation in May 2022. ED course- CBC, BMP clear. Troponin pending. EKG with new T wave inversions. Given IVF for dehydration Allergies Allergy/AdvReac Type Severity Reaction Status Date / Time lisinopril AdvReac Mild Cough Verified 04/16/22 16:14 Home Medications Medication Instructions Recorded Confirmed Type aspirin 325 mg tablet,delayed 325 mg PO DAILY tab 07/07/19 04/16/22 History release acetaminophen 325 mg tablet 650 mg PO Q4H PRN #30 tab 01/02/21 04/16/22 Rx nitroglycerin 0.4 mg sublingual 0.4 mg SL Q5M PRN #25 tab 01/16/21 04/16/22 Rx tablet atorvastatin 40 mg tablet 40 mg PO DAILY #90 tab 04/17/21 04/16/22 Rx tamsulosin 0.4 mg capsule 0.4 mg PO DAILY #90 cap 05/28/21 04/16/22 Rx solifenacin 5 mg tablet (Vesicare) 5 mg PO DAILY #90 tab 11/28/21 04/16/22 Rx carbamazepine 200 mg tablet 200 mg PO ACHS 12/07/21 04/16/22 History metoprolol tartrate 50 mg tablet 50 mg PO DAILY #90 tab 01/16/22 04/16/22 Rx valsartan 160 1 tab PO DAILY #90 tab 03/07/22 04/16/22 Rx mg-hydrochlorothiazide 25 mg tablet amoxicillin 500 mg capsule 2,000 mg PO DIRECTED PRN 04/14/22 04/16/22 History gabapentin 300 mg capsule See Rx Instructions .ROUTE .COMPLEX 04/14/22 04/16/22 History [id number]-wpmbmbqqz-hyw C-Mn 500 1 cap PO BID 04/14/22 04/16/22 History mg-400 mg capsule (Glucosamine Chondroitin Maximum Strength) oxycodone 10 mg tablet 10 mg PO UD PRN 04/16/22 04/16/22 History Past Med/Surg History Medical History Back pain Benign enlargement of prostate CAD (coronary artery disease) HTN (hypertension) Injury of left hand MGUS (monoclonal gammopathy of unknown significance) Peripheral neuropathy Rosacea Trigeminal neuralgia Surgical History History of ankle surgery History of carpal tunnel release of both wrists 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 with WALLER graft S/P inguinal hernia repair S/P knee replacement S/P tonsillectomy Family History Mother Hypertension Heart disease Diabetes Brother Parkinson disease Father Heart disease Social History Smoking Status: Never smoker Hx Alcohol Use: Yes Alcohol type: beer Hx Substance Use: No Preferred Language: Kyrgyz Communication Ability: Effective Visual Impairment: No Limitations Hearing Ability: Normal Insert Molding Operator Required: No Beliefs That Will Affect Care: None marital status: Current Living Situation: Spouse Current Living Situation Comment: Daughter, current occupational status: retired Feels Safe at Home: Yes Safety Concerns: Feels Safe At This Time caffeine: No Seatbelt Use: always Sunscreen Use: Yes Assistive Devices: Glasses Review of Systems Review of Systems: Per HPI Physical Exam Physical Exam: GENERAL: Well-developed, well-nourished elderly male, no acute distress. +Multiple episodes of R facial pain and wincing noted during evaluation HEENT: mildly dry mucous membranes, no lymphadenopathy or JVD b/l, EOMI, +increased clear drainage of L eye CV: RRR, normal S1, S2, no murmurs LUNGS: Clear to auscultation bilaterally. No increased work of breathing ABDOMEN: Soft, slightly distended but non-tender, normal bowel sounds EXTREMITIES: No edema, distal pulses intact b/l NEUROLOGIC: CN 2-12 intact, no focal motor or sensory deficits, +reproducible pain to palpation of R trigeminal distribution SKIN: Warm, dry, intact. No rashes or lesions. Results & Data Results & Data ([facility]) Vital Signs (Past 12 Hours) Vital Signs Temp Pulse Pulse Resp BP BP Pulse Ox 04/16/22 16:27 68 69 20 172/82 H 95 04/16/22 13:14 36.5 C 91 H 18 182/99 H 97 Code Status & VTE Plan Code Status full code Supervising Physician Co-Signing Physician Notes Attending Attestation & Admit Note: Pt seen/examined, chart reviewed, care plan d/w resident Dr Claudine Berman. I agree w/ the sandy components of his documentation. 81yo male with long-standing trigeminal neuralgia - follows with [facility] Neurology Dr Gopal Newton - and CAD s/p CABG presenting with intractable right- sided facial pain 2nd to his trigeminal neuralgia. This is despite complex regimen of gabapentin, tegretol, pain meds, etc. During my exam he was wincing in pain in a waxing/waning pattern. He would often hold the right side of his face due to the severity of his pain. His right eye was tearing. PMH/PSH/allergies/meds/sochx/famhx - reviewed VSS although BPs are elevated gen - very uncomfortable due to right-sided facial pain, sleepy eyes - right eye tearing, slight injection; left eye with matting of lashes, conjunctival injection face - no droop mouth - MM dry heart - RRR, s1 s2 lungs - CTA b/l abd - mildly distended, BS+, NT ext - no edema labs reviewed EKG - NSR, IRBBB, new T wave inversions anteroseptal leads; inferior T wave changes are OLD A/P: Severe intractable R facial pain 2nd to trigeminal neuralgia -- increase HS gabapentin, cont tegretol, consider long-acting pain med (e.g. nucynta ER, oxycontin, etc), oxy IR prn, scheduled tylenol Consult neuro for any additional recs Abnl EKG, elevated troponin - in the absence of any cardiopulmonary sx's today -- likely demand ischemia in setting of his severe facial pain trend the trops repeat the EKG in am will reach out to [facility] for recent echo done in office in March 2022 Taiwo Robledo MD Resident Activity Tracking Resident Involvement: Resident Care Provided Care Provided: Adult Hospital Medicine
[2022-04-16] MEDS: ASPIRIN CHEW 324 MG PO STA ×3 (19:12→19:21)
[2022-04-16] MEDS ORDERED: POLYETHYLENE (MIRALAX) 17 GM PACK PO PRN (21:57)
[2022-04-16] MEDS ORDERED: BACLOFEN 10 MG TAB PO PRN (21:57)
[2022-04-16] MEDS ORDERED: oxyCODONE HCL IR 5 MG TAB (IMMEDIATE RELEASE) PO PRN (21:57)
[2022-04-16] MEDS ORDERED: ONDANSETRON INJ 2 MG/ML 2 ML VIAL IV PRN (21:57)
[2022-04-16] MEDS ORDERED: BACLOFEN 10 MG TAB PO ONE (22:00)
[2022-04-16] MEDS ORDERED: GABAPENTIN 100 MG CAP PO ONE (22:00)
[2022-04-16] MEDS: carBAMazepine 200 MG TABLET PO SCH (22:51)
[2022-04-16] MEDS: METOPROLOL TARTRATE 50 MG TAB PO SCH (22:51)
[2022-04-16] MEDS: ERYTHROMYCIN OP OINT 5 MG/GM 3.5 GM TUBE OP SCH (22:52)
[2022-04-16] MEDS: ACETAMINOPHEN 500 MG TAB PO SCH ×2 (22:55→23:46)
[2022-04-16] MEDS: ENOXAPARIN INJ 40 MG/0.4 ML SYR SQ SCH (23:45)
[2022-04-16] MEDS: GABAPENTIN 100 MG CAP PO SCH (23:46)
[2022-04-17] MEDS: carBAMazepine 200 MG TABLET PO SCH ×4 (09:02→21:47)
[2022-04-17] MEDS: ASPIRIN 325 MG ECTAB PO SCH (09:02)
[2022-04-17] MEDS: METOPROLOL TARTRATE 50 MG TAB PO SCH ×2 (09:02→21:47)
[2022-04-17] MEDS: VALSARTAN 80 MG TAB PO SCH (09:03)
[2022-04-17] MEDS: TAMSULOSIN HCL 0.4 MG CAP PO SCH (09:03)
[2022-04-17] MEDS: hydroCHLOROthiazide 25 MG TAB PO SCH (09:03)
[2022-04-17] MEDS: ATORVASTATIN 40 MG TAB PO SCH (09:03)
[2022-04-17] MEDS: GABAPENTIN 100 MG CAP PO SCH ×4 (09:04→21:47)
[2022-04-17] MEDS: ACETAMINOPHEN 500 MG TAB PO SCH ×3 (09:04→23:10)
[2022-04-17] MEDS: POLYETHYLENE (MIRALAX) 17 GM PACK PO SCH (09:08)
[2022-04-17] MEDS: SENNA 8.6 MG TAB PO SCH (09:09)
--- NOTE | 2022-04-17 09:51 | Billing Data ---
Date of Service April 16, 2022 Coding Level of Care Code INT OBSERVATION CARE 50M LVL 2
[2022-04-17] MEDS ORDERED: GABAPENTIN 100 MG CAP PO SCH (12:00)
[2022-04-17 18:43] LABS: Influenza A virus by PCR Negative (Neg); Influenza B virus by PCR Negative (Neg); RSV by PCR Negative (Neg); SARS CoV2 RNA(COVID-19) InHosp NEGATIVE (Negative)
--- NOTE | 2022-04-17 19:03 | Consultation Report ---
NEUROLOGY CONSULTATION NOTE DATE OF CONSULTATION: 04/17/2022. CHIEF COMPLAINT: Trigeminal neuralgia. HISTORY OF PRESENT ILLNESS: An 81-year-old male with longstanding intractable right-sided trigeminal neuralgia, predominantly involving the V2 distribution admitted with breakthrough pain. The patient follows with Dr. Gopal Newton at [facility]. He is currently on gabapentin 300 mg 7 tablets daily for a total dose of 2100 mg a day as well as Tegretol 200 mg 4 times daily for a total daily d ose of 800 mg daily. He has noted some adverse side effects from medications including intermittent dizziness and ataxia. He is also following with [facility] and is planning an ablation. He did have an injection, although had no improvement. Currently, pain has improved. He has started ox ycodone 10 mg as needed for breakthrough pain. Baclofen was also added for breakthrough pain. He is currently sitting here pleasantly. Noted some upper respiratory symptoms. Otherwise, denies any br eakthrough pain at the moment. They remain optimistic for planned ablation in the future. PAST MEDICAL HISTORY: Intractable chronic right-sided trigeminal neuralgia, coronary artery disease s tatus post CABG, hypertension, hyperlipidemia, BPH. ALLERGIES: LISINOPRIL. HOME MEDICATIONS: Aspirin, Lipitor, carbamazepine 200 mg 4 times daily, metoprolol, valsartan, hydro chlorothiazide, gabapentin 300 mg 7 tablets daily, oxycodone 10 mg as needed. PAST SURGICAL HISTORY: Ankle surgery, carpal tunnel release surgery, CABG, inguinal hernia repair, k nee replacement, tonsillectomy. FAMILY HISTORY: Mother had hypertension, heart disease and diabetes. Brother had Parkinson's diseas e and father had heart disease. SOCIAL HISTORY: He is a nonsmoker. He is and lives with his . Drinks beer occasionally . REVIEW OF SYSTEMS: Positive for breakthrough right-sided facial pain. All other review of systems w as negative. PHYSICAL EXAMINATION: VITAL SIGNS: Blood pressure 106/69, pulse is 61, respiratory rate 19, temperature is 37.6 degrees Ce lsius, oxygen saturation is 96% on room air. GENERAL: The patient appears stated age, thin appearing male. He appears in no acute distress. He is reading the newspaper. Sitting upright in bed. NEUROLOGIC: He is following commands. Speech is clear. Eyes are midline. Extraocular muscles inta ct. Pupils are symmetric. Face appears symmetric. Tongue is midline. Mood is normal. He has no t remor or myoclonic jerks. Sensation is intact. DIAGNOSTIC TESTING: WBC 9.71, hemoglobin 15.2, platelet count 218. Sodium 140, potassium 3.9, chlor maureen 102, BUN is 20, creatinine 1.03, glucose is 110. Troponin is elevated at 64.1, ALT is 12, AST is 19. COVID-19 PCR is pending. Influenza is pending. Imaging performed on 02/27/2022. MRI of the brain without contrast showed no acute intracranial find ings, moderate cerebellar and cerebral atrophy. ASSESSMENT AND PLAN: An 81-year-old male with intractable right-sided trigeminal neuralgia with some adverse side effects in the setting of high dose Tegretol and gabapentin admitted for breakthrough p ain. Recommend to continue current dose of home gabapentin 600 mg 3 times daily and 1 tablet at [facility]. Recommend reducing Tegretol to 200 mg 3 times daily given noted side effects of dizziness, nausea and ataxia. Agree with the use of baclofen 10 mg tablet every 8 hours as needed for breakthrough pa in. Otherwise if pain remains intractable, we will consider adding Dilantin, although will defer on doing this at this time until assessing how patient does with medication adjustment. Otherwise, no a dditional neurological recommendations at this time. Agree with planned ablation in the future. Ple ase contact me with any additional questions or concerns. The patient is okay to be discharged from Neurology standpoint. Job ID: [id number]
[2022-04-17] MEDS: ERYTHROMYCIN OP OINT 5 MG/GM 3.5 GM TUBE OP SCH (21:47)
[2022-04-17] MEDS: ENOXAPARIN INJ 40 MG/0.4 ML SYR SQ SCH (21:47)
--- NOTE | 2022-04-17 22:00 | Electrocardiogram Report ---
Test Reason : Blood Pressure : / mmHG Vent. Rate : 069 BPM Atrial Rate : 069 BPM P-R Int : 136 ms QRS Dur : 088 ms QT Int : 430 ms P-R-T Axes : 268 -02 -04 degrees QTc Int : 460 ms Unusual P axis, possible ectopic atrial rhythm Inferior infarct , age undetermined T wave abnormality, consider anterior ischemia Incomplete right bundle branch block Abnormal ECG When compared with ECG of 07-DEC-2021 02:21, Ectopic atrial rhythm has replaced Sinus rhythm T wave inversion now evident in Anterior leads Confirmed by Adelso Atkinson ([id number]) on 04/17/2022 9:59:40 PM Referred By: REFERRED SELF Confirmed By:Adelso Atkinson
--- NOTE | 2022-04-17 22:03 | Hospitalist Progress Note ---
Date of Service April 17, 2022 Assessment & Plan (1) Trigeminal neuralgia: Plan: right-sided long-standing, but recently much worse follows with Dr Gopal Newton, [facility] appreciate 's consultation plan - * cont tylenol 1gm TID * cont baclofen 5mg prn * cont tegretol but lower dose to 200mg TID * cont gabapentin - need to verify dose as he is on a complex dosing schedule of such * oxycodone prn * consider lamictal or dilantin if the above does not lead to sustained pain control (2) URI (upper respiratory infection): Plan: URI symptoms started today along with low-grade fever temp 37.6 this afternoon repeat triple viral screen (COVID/flu/RSV) -- negative supportive care (3) CAD (coronary artery disease): Plan: he has known CAD and prior h/o CABG he just saw [facility] cardiology in late March echo during that visit (04/10/22) -- * EF 70% * no regional wall motion abnormalities * no LVH * grade 2 diastolic dysfunction * mod TR * moderate pulmonary HTN * PFO he has NOT had any ischemic symptoms here or just before admission cont asa cont statin cont metoprolol (4) HTN (hypertension): Plan: uncontrolled perhaps 2nd to pain either way his metoprolol was increased to 50mg BID and BPs are improved (5) Dyslipidemia: Plan: cont statin (6) Elevated troponin: Plan: likely demand ischemia in setting of #1 above (7) Conjunctivitis: Plan: left eye improved cont erythromycin eye ointment Plan: updated at bedside needs PT eval Admission and Anticipated Discharge Date Admission Date: April 16, 2022 Subjective tele overnight wnl R facial pain 2nd trigeminal neuralgia improved at bedside during my visit she reports he seems congested had low grade temp of 37.6 this afternoon he is fully vaccinated against COVID denies cough appetite poor today - blames it on pain in face and difficulty chewing because of pain Review of Systems Review of Systems: gen - no chills despite low-grade fever today; appetite poor; fatigue cv - no chest pain pulm - no cough or dyspnea GI - no abd pain, nausea or emesis; constipation resolved; moving bowels Physical Exam Physical Exam: gen - looks much more comfortable today, but sleepy eyes - conjunctival injection & drainage improved left eye mouth - MMM nose - congested heart - RRR, s1 s2 lungs - CTA b/l abd - soft NT ND BS+ ext - no edema, pulses 2+ b/l Results & Data Results & Data ([facility]) Vital Signs (Past 12 Hours) Vital Signs Temp Pulse Pulse Resp BP Pulse Ox 04/17/22 19:11 36.7 C 63 18 118/72 95 04/17/22 15:01 61 04/17/22 14:25 37.6 C H 95 H 19 106/69 96 04/17/22 14:20 37.6 C H 95 H 17 106/69 96 04/17/22 11:25 36.9 C 65 18 123/75 95 Laboratory Results repeat COVID/RSV/Flu negative PG Care Time/CCT Total # of Minutes Spent Total Time Spent with Patient: Total time spent is greater than 50% in coordination of care (as documented) at patient's floor/unit and/or counseling patient: Coding Level of Care Code 41693 Subseq Obs Care Lvl 2 Diagnoses CAD (coronary artery disease) I25.10 HTN (hypertension) I10 Dyslipidemia E78.5 Trigeminal neuralgia G50.0 Elevated troponin R77.8 URI (upper respiratory infection) J06.9 Conjunctivitis H10.9
--- NOTE | 2022-04-18 06:21 | Electrocardiogram Report ---
Test Reason : Blood Pressure : / mmHG Vent. Rate : 065 BPM Atrial Rate : 065 BPM P-R Int : 204 ms QRS Dur : 088 ms QT Int : 468 ms P-R-T Axes : 013 -19 -13 degrees QTc Int : 486 ms Normal sinus rhythm with sinus arrhythmia Minimal voltage criteria for LVH, may be normal variant T wave abnormality, consider inferior ischemia Prolonged QT Abnormal ECG When compared with ECG of 16-APR-2022 16:17, Sinus rhythm has replaced Ectopic atrial rhythm Criteria for Inferior infarct are no longer Present Confirmed by Adelso Atkinson ([id number]) on 04/18/2022 6:21:15 AM Referred By: REFERRED SELF Confirmed By:Adelso Atkinson
--- NOTE | 2022-04-18 06:29 | Electrocardiogram Report ---
Test Reason : Blood Pressure : / mmHG Vent. Rate : 071 BPM Atrial Rate : 071 BPM P-R Int : 144 ms QRS Dur : 086 ms QT Int : 442 ms P-R-T Axes : 000 -10 -06 degrees QTc Int : 480 ms Normal sinus rhythm Possible Inferior infarct (cited on or before 16-APR-2022) T wave abnormality, consider anterior ischemia T wave abnormality, consider inferior ischemia Prolonged QT Abnormal ECG When compared with ECG of 16-APR-2022 16:17, T wave inversion more evident in Anterior leads Confirmed by Adelso Atkinson ([id number]) on 04/18/2022 6:29:17 AM Referred By: REFERRED SELF Confirmed By:Adelso Atkinson
[2022-04-18 06:43] LABS: Basophils # (auto) 0.03 K/uL (0-0.2); Basophils % (auto) 0.4 %; Eosinophils # (auto) 0.19 K/uL (0-0.5); Eosinophils % (auto) 2.5 %; Hematocrit (blood only) 38.9 % (42-52); Hemoglobin 13.1 g/dL (14.0-18.0); Immature Granulocytes # (auto) 0.02 K/uL (0.00-0.02); Immature Granulocytes % (auto) 0.3 %; Lymphocytes # (auto) 1.58 K/uL (1.2-3.4); Lymphocytes % (auto) 20.7 %; Mean Corpuscular Hemoglobin 30.5 pg (25-34); Mean Corpuscular Hgb Conc 33.7 g/dL (32-36); Mean Corpuscular Volume 90.7 fL (80-100); Mean Platelet Volume 9.2 fL (7.4-10.4); Monocytes # (auto) 0.62 K/uL (0.11-0.59); Monocytes % (auto) 8.1 %; Platelet Count 204 K/uL (130-400); RDW Coefficient of Variation 13.1 % (11.5-14.5); RDW Standard Deviation 42.9 fL (36.4-46.3); Red Blood Count 4.29 M/uL (4.7-6.1); White Blood Count 7.64 K/uL (4.8-10.8)
[2022-04-18 07:04] LABS: BUN Creatinine Ratio 25.8 (10-20); Calcium 8.8 mg/dl (8.5-10.1); Creatinine Clr Calc Pharmacy 66.9 ml/min; Est GFR (African American) 92.9 ml/min; Est GFR (Non-African American) 80.2 ml/min; Potassium 3.6 mmol/L (3.5-5.1)
[2022-04-18] MEDS: POLYETHYLENE (MIRALAX) 17 GM PACK PO SCH (08:39)
[2022-04-18] MEDS: SENNA 8.6 MG TAB PO SCH (08:40)
[2022-04-18] MEDS: carBAMazepine 200 MG TABLET PO SCH ×3 (08:40→20:09)
[2022-04-18] MEDS: VALSARTAN 80 MG TAB PO SCH (08:40)
[2022-04-18] MEDS: ATORVASTATIN 40 MG TAB PO SCH (08:41)
[2022-04-18] MEDS: ASPIRIN 325 MG ECTAB PO SCH (08:41)
[2022-04-18] MEDS: hydroCHLOROthiazide 25 MG TAB PO SCH (08:41)
[2022-04-18] MEDS: ACETAMINOPHEN 500 MG TAB PO SCH ×3 (08:42→22:32)
[2022-04-18] MEDS: GABAPENTIN 100 MG CAP PO SCH (08:42)
[2022-04-18] MEDS: METOPROLOL TARTRATE 50 MG TAB PO SCH ×2 (08:42→20:10)
[2022-04-18] MEDS: TAMSULOSIN HCL 0.4 MG CAP PO SCH (08:46)
[2022-04-18] MEDS: GABAPENTIN 300 MG CAP PO SCH ×3 (13:13→20:10)
--- NOTE | 2022-04-18 17:29 | Neurology Progress Note ---
Date of Service April 18, 2022 Assessment & Plan (1) Trigeminal neuralgia: Plan: An 81 year old male with known right sided TGN admitted with breakthrough pain. Pain has improved. Denies pain this afternoon. Recommend to continue Tegretol 200 mg TID, Gabapentin 600 mg TID and 300 mg before bedtime. Recommend Baclofen 10 mg TID PRN for breakthrough pain. Ok to be discharged from neurology standpoint. Follow with Dr. Newton as outpatient. Admission and Anticipated Discharge Date Admission Date: April 16, 2022 Subjective Patient was seen and examined this afternoon. Pleasant. Sitting up in bed. Ready to go home he tells me. Denies pain this afternoon. tolerating medications ok. at bedside. Physical Exam Physical Exam: Appears stated age. No distress. Speech is clear. Following commands. Eyes midline. Tongue midline . Face symmetric. Results & Data ([facility]) Vital Signs (Past 12 Hours) Vital Signs Temp Pulse Pulse Resp BP BP Pulse Ox 04/18/22 15:34 65 04/18/22 14:41 36.5 C 64 18 111/66 94 04/18/22 10:51 36.6 C 57 L 18 127/77 97 04/18/22 07:30 56 L 04/18/22 07:16 36.6 C 69 18 146/74 H 96
[2022-04-18] MEDS: ENOXAPARIN INJ 40 MG/0.4 ML SYR SQ SCH (20:09)
[2022-04-18] MEDS: ERYTHROMYCIN OP OINT 5 MG/GM 3.5 GM TUBE OP SCH (20:09)
--- NOTE | 2022-04-18 21:38 | Hospitalist Progress Note ---
Date of Service April 18, 2022 Assessment & Plan (1) Trigeminal neuralgia: Plan: right-sided long-standing, but recently much worse follows with Dr Gopal Newton, [facility] appreciate 's consultation plan - * cont tylenol 1gm TID * cont baclofen 5mg prn * cont tegretol 200mg TID * cont gabapentin - I verified his dosing regimen pre-hospital -- * 600mg AM; 900mg noon; 600mg evening; 900mg HS * I am uncertain if he has been following this regimen or not - couldn't tell me either * will make it 300mg QID now; then change to 600mg QID tomorrow; then will get him back to usual regimen after that * oxycodone prn * consider lamictal or dilantin if the above does not lead to sustained pain control but thus far doing ok (2) URI (upper respiratory infection): Plan: URI symptoms started yesterday along with low-grade fever temp 37.6 yesterday afternoon repeat triple viral screen (COVID/flu/RSV) -- negative supportive care likely viral laryngitis (3) CAD (coronary artery disease): Plan: he has known CAD and prior h/o CABG he just saw [facility] cardiology in late March echo during that visit (04/10/22) -- * EF 70% * no regional wall motion abnormalities * no LVH * grade 2 diastolic dysfunction * mod TR * moderate pulmonary HTN * PFO he has NOT had any ischemic symptoms here or just before admission cont asa cont statin cont metoprolol f/u with cards post-d/c given his EKG findings may need stress test (4) HTN (hypertension): Plan: uncontrolled perhaps 2nd to pain either way his metoprolol was increased to 50mg BID and BPs are improved HRs are tolerating this as well (5) Dyslipidemia: Plan: cont statin (6) Elevated troponin: Plan: likely demand ischemia in setting of #1 above (7) Conjunctivitis: Plan: left eye improved cont erythromycin eye ointment Plan: updated at bedside needs PT eval if passes such can d/c home - hopefully tomorrow change OBS to full admission status Admission and Anticipated Discharge Date Admission Date: April 18, 2022 Subjective patient resting comfortably in bed during the visit at bedside he was able to eat more robustly today since right facial pain is much better can chew & swallow more comfortably left eye drainage is improved denies significant nasal drainage or congestion he is having hoarse voice now hasn't been out of bed very much today wants to walk, however Review of Systems Review of Systems: gen - no fevers today musculo - denies myalgias pulm - denies cough GI - denies N/V/diarrhea Physical Exam Physical Exam: gen - looks very good today; comfortable eyes - conjunctival injection & drainage nearly resolved left eye mouth - MMM voice - hoarse heart - RRR, s1 s2 lungs - CTA b/l abd - soft NT ND BS+ ext - no edema, pulses 2+ b/l psych - awake, alert Results & Data Results & Data ([facility]) Vital Signs (Past 12 Hours) Vital Signs Temp Pulse Pulse Resp BP BP Pulse Ox 04/18/22 19:10 36.5 C 62 18 142/73 H 95 04/18/22 15:34 65 04/18/22 14:41 36.5 C 64 18 111/66 94 04/18/22 10:51 36.6 C 57 L 18 127/77 97 Laboratory Results Laboratory Results - last 24 hr 04/18/22 04/18/22 06:19 06:19 WBC 7.64 RBC 4.29 L Hgb 13.1 L Hct 38.9 L MCV 90.7 MCH 30.5 MCHC 33.7 RDW Std Deviation 42.9 RDW Coeff of Agustín 13.1 Plt Count 204 MPV 9.2 Immature Gran % (Auto) 0.3 Neut % (Auto) 68.0 Lymph % (Auto) 20.7 [place] % (Auto) 8.1 Eos % (Auto) 2.5 Baso % (Auto) 0.4 Neut # (Auto) 5.20 Lymph # (Auto) 1.58 [place] # (Auto) 0.62 H Eos # (Auto) 0.19 Baso # (Auto) 0.03 Immature Gran # (Auto) 0.02 Sodium 138 Potassium 3.6 Chloride 105 Carbon Dioxide 27 Anion Gap 6 BUN 23 Creatinine 0.89 Est Cr Clr Drug Dosing 66.9 Est GFR ( Amer) 92.9 Est GFR (Non-Af Amer) 80.2 BUN/Creatinine Ratio 25.8 H Glucose 83 Calcium 8.8 PG Care Time/CCT Total # of Minutes Spent Total Time Spent with Patient: Total time spent is greater than 50% in coordination of care (as documented) at patient's floor/unit and/or counseling patient: Coding Level of Care Code 48569 Subseq Hosp Care Lvl 2 Diagnoses Trigeminal neuralgia G50.0 URI (upper respiratory infection) J06.9 CAD (coronary artery disease) I25.10 HTN (hypertension) I10 Dyslipidemia E78.5 Elevated troponin R77.8 Conjunctivitis H10.9
[2022-04-19] MEDS: ACETAMINOPHEN 500 MG TAB PO SCH (06:30)
[2022-04-19] MEDS: carBAMazepine 200 MG TABLET PO SCH ×2 (08:16→13:33)
[2022-04-19] MEDS: ATORVASTATIN 40 MG TAB PO SCH (08:16)
[2022-04-19] MEDS: GABAPENTIN 300 MG CAP PO SCH (08:16)
[2022-04-19] MEDS: POLYETHYLENE (MIRALAX) 17 GM PACK PO SCH (08:17)
[2022-04-19] MEDS: METOPROLOL TARTRATE 50 MG TAB PO SCH (08:17)
[2022-04-19] MEDS: ASPIRIN 325 MG ECTAB PO SCH (08:17)
[2022-04-19] MEDS: TAMSULOSIN HCL 0.4 MG CAP PO SCH (08:17)
[2022-04-19] MEDS: SENNA 8.6 MG TAB PO SCH (08:17)
[2022-04-19] MEDS: hydroCHLOROthiazide 25 MG TAB PO SCH (08:17)
[2022-04-19] MEDS: VALSARTAN 80 MG TAB PO SCH (08:17)
[2022-04-19 09:06] LABS: Creatinine Clr Calc Pharmacy 73.4 ml/min; Est GFR (African American) 96.6 ml/min; Est GFR (Non-African American) 83.4 ml/min
[2022-04-19] MEDS ORDERED: GABAPENTIN 300 MG CAP PO SCH (13:00)
--- NOTE | 2022-04-19 15:52 | Discharge Summary ---
Date of Service April 19, 2022 Admission HPI Per Admitting Provider 81 yo M with PMH trigeminal neuralgia, CAD s/p CABG, HTN, HLD, BPH presenting with R facial pain. Pt was diagnosed with trigeminal neuralgia 5+ years ago and notes it has been largely on and off but gradually became worse over time- episodes increasing in frequency and severity. He notes this has been especially prominent over the past few weeks- pain would be triggered by multiple mundane actions including eating, talking and turning his mouth. Pt visited ER on 04/14 due to severe R facial pain and was treated with Toradol, discharged on oxycodone PRN. He has not been able to eat and drink much over the past few days. Last night, pt's pain was very severe- 08/19 and he took oxycodone 5 mg which provided minimal relief. This AM, he took oxycodone 10 mg which did provide moderate relief. He called his neurologist (Dr. Newton with [facility]) who advised him to come to ER. Currently he reports pain 03/19, no associated symptoms or other complaints. Pt's trigeminal neuralgia pain management over the past few years has evolved. Has been on gabapentin for about 3 years (currently 100 mg with complex timing- 800 mg total daily) and started Tegretol 200 mg QID a few months prior. Did note pain relief with Tegretol 200 mg QID but he also became dizzy and lightheaded since starting the medication, which prompted neurologist to initially reduce dose to 200 mg TID on 04/12 but was subsequently returned to QID on 04/14 due to pain severity. Pt has also received a series of 3 steroid injections thus far, most recent was on 04/12. He is scheduled for nerve ablation in May 2022. ED course- CBC, BMP clear. Troponin pending. EKG with new T wave inversions. Given IVF for dehydration Discharge Exam gen - looks very good today; comfortable eyes - conjunctival injection & drainage nearly resolved left eye mouth - MMM voice - hoarse heart - RRR, s1 s2 lungs - CTA b/l abd - soft NT ND BS+ ext - no edema, pulses 2+ b/l psych - awake, alert Discharge Data Allergies Allergy/AdvReac Type Severity Reaction Status Date / Time lisinopril AdvReac Mild Cough Verified 04/16/22 16:14 Consultations 04/16/22 17:05 ED Decision to Admit Stat 04/16/22 21:57 Consult Neurology Routine Hospital Course (1) Trigeminal neuralgia: right-sided long-standing, but recently much worse follows with Dr Gopal Newton, [facility] appreciate 's consultation plan - * cont tylenol 1gm TID * cont baclofen 5mg prn * cont tegretol 200mg TID * cont gabapentin - I verified his dosing regimen pre-hospital -- * 600mg AM; 900mg noon; 600mg evening; 900mg HS * I am uncertain if he has been following this regimen or not - couldn't tell me either * will make it 300mg QID now; then change to 600mg QID tomorrow; then will get him back to usual regimen after that * oxycodone prn * consider lamictal or dilantin if the above does not lead to sustained pain control but thus far doing ok (2) URI (upper respiratory infection): URI symptoms started yesterday along with low-grade fever temp 37.6 yesterday afternoon repeat triple viral screen (COVID/flu/RSV) -- negative supportive care likely viral laryngitis (3) CAD (coronary artery disease): he has known CAD and prior h/o CABG he just saw [facility] cardiology in late March echo during that visit (04/10/22) -- * EF 70% * no regional wall motion abnormalities * no LVH * grade 2 diastolic dysfunction * mod TR * moderate pulmonary HTN * PFO he has NOT had any ischemic symptoms here or just before admission cont asa cont statin cont metoprolol f/u with cards post-d/c given his EKG findings may need stress test (4) HTN (hypertension): uncontrolled perhaps 2nd to pain either way his metoprolol was increased to 50mg BID and BPs are improved HRs are tolerating this as well (5) Dyslipidemia: cont statin (6) Elevated troponin: likely demand ischemia in setting of #1 above (7) Conjunctivitis: left eye improved cont erythromycin eye ointment updated at bedside needs PT eval if passes such can d/c home - hopefully tomorrow change OBS to full admission status Discharge Plan Discharge Items Patient Disposition: Home - Self-Care Reason For Visit: TRIGEMINAL NEURALGIA Discharge Diagnosis: 1. Severe Trigeminal Neuralgia pain - improved 2. Left eye conjunctivitis 3. Upper respiratory infection/laryngitis 4. Abnormal EKG - follow-up with [facility] needed (Lelo Prescott NP) Activity: Resume your previous activity Non-emergency contact: Primary Care Provider and Neurologist Call non-emergency contact if: you have any medication questions, your symptoms worsen, your pain is not controlled and your pain is worsening Follow-up/Referrals: Lesa Monsivais PA-C [Primary Care Provider] - (1 week) Lelo Prescott CRNP [Nurse Practitioner] - (2-3 weeks or first available; diagnosis -- abnormal EKG, known coronary disease) Gopal Newton MD [Physician] - (1-2 weeks for Trigeminal Neuralgia) Diet: Heart Healthy Diet Texture: Easy to Chew Addtl Attending Provider Instructions: Mr Gtz - You were admitted to the hospital for the problems listed above in "discharge diagnoses." At time of admission you had severe right-sided facial pain from your Trigeminal Neuralgia. You were seen by [facility] neurology for the condition. During the stay the pain got better with a combination of several medications. You also had left eye conjunctivitis ("pink eye") and laryngitis. Both are stable. Recommendations - 1. trigeminal neuralgia pain regimen - * tylenol 1000mg three times daily as needed; purchase [id number]-bapqlua * oxycodone 5mg every 6 hours as needed for pain * oxycodone can cause constipation; if you are taking oxycodone please take [id number] miralax and/or Senokot for constipation * oxycodone can also cause you to be sleepy or even a little confused * try to stick with the 5mg dose; if the pain is severe you can try 2 tabs at a time (10mg) but know that side effects will be more common with the higher dose * tegretol (carbamazapine) 200mg THREE TIMES DAILY * gabapentin -- 600mg FOUR TIMES DAILY Be sure to rearrange/sort your pill box at home as the carbamazapine and gabapentin doses HAVE CHANGED. 2. left eye conjunctivitis - erythromycin eye ointment at bedtime x 7 more days. 3. due to your abnormal EKG please skip going to PT at [place] until you have been seen by Ms Prescott at the cardiology office. 4. metoprolol (heart medication) -- previously you took 50mg (1 full tablet) once daily. Please break the pill in HALF and take 1/2 tablet (25mg) twice daily. Follow-up - see separate section. Of note - Ms Prescott at the [facility] office will be in touch with you to arrange a follow-up appointment for your abnormal EKG. Return to [facility] if - * you have severe facial pain that is not controlled with the above medications * you have chest pains or shortness of breath * any other concerns It was my pleasure to care for you at [facility]! Dr Robledo Pending Studies at Discharge: No Stand-Alone Forms: My [facility], Smoking Cessation Medications and DC Order Prescriptions: New erythromycin 5 mg/gram (0.5 %) Ointment 1 applic ophthalmic (eye) HS Qty: 3.5 RF: 0 Continued nitroglycerin 0.4 mg tablet, sublingual 0.4 mg SL Q5M PRN (Reason: chest pain) Qty: 25 RF: 3 atorvastatin 40 mg tablet 40 mg PO DAILY Qty: 90 RF: 3 valsartan-hydrochlorothiazide 160-25 mg tablet 1 tab PO DAILY Qty: 90 RF: 3 solifenacin [Vesicare] 5 mg tablet 5 mg PO DAILY Qty: 90 RF: 3 tamsulosin 0.4 mg capsule 0.4 mg PO DAILY Qty: 90 RF: 3 aspirin 325 mg tablet,delayed release (DR/EC) 325 mg PO DAILY RF: 0 acetaminophen 325 mg Tablet 650 mg PO Q4H PRN (Reason: pain) Qty: 30 RF: 0 [id number]-[id number] C-Mn [Glucosamine Chondroitin MaxStr] 500-400 mg Capsule 1 cap PO BID RF: 0 amoxicillin 500 mg capsule 2,000 mg PO DIRECTED PRN (Reason: Prophylaxis PRIOR TO DENTAL APPT.) RF: 0 Changed metoprolol tartrate 50 mg tablet 25 mg PO BID Qty: 90 RF: 3 carbamazepine 200 mg tablet 200 mg PO TID Qty: 0 RF: 0 gabapentin 300 mg capsule 600 mg PO 4XD Qty: 240 RF: 0 oxycodone 10 mg tablet 5 mg PO Q6H PRN (Reason: Pain) Qty: 0 RF: 0 Discharge Orders: Discharge Order (Routine); Ordered 04/19/22 Ordered By: Taiwo Robledo Admission Data Admit Date/Time: 04/18/22 17:19 Attending Provider: Taiwo Robledo Admit Provider: Claudine Berman Primary Care Provider: Lesa Monsivais Other Providers: Taiwo Robledo ; Brooke Rojo Other Interventions: Discharge Summary Assessment (RN) Last Done: 04/19/22 15:38 Coding Diagnoses Trigeminal neuralgia G50.0 URI (upper respiratory infection) J06.9 CAD (coronary artery disease) I25.10 HTN (hypertension) I10 Dyslipidemia E78.5 Elevated troponin R77.8 Conjunctivitis H10.9
== END 2022-04-19 16:15 | disposition home or self-care (01) | DRG 74 ==
LOC: 2W 12:39 → ED 12:39 → 2W 21:38

== ENCOUNTER 2022-05-12 13:29 | Observation (INO) ==
[2022-05-12] MEDS ORDERED: SODIUM CHLORIDE 0.9% 500 ML IV SCH (14:45)
--- NOTE | 2022-05-12 14:51 | Emergency Department Note ---
Impression & Plan Weakness ED Provider Note NAME: SANDRA ELDRIDGE AGE: 81 SEX: M : 1940 ARRIVES VIA: Ambulance INFORMANT: Patient, the patient's significant other ED PROVIDER(S): Silvestre Thompson DO CHIEF COMPLAINT: Generalized weakness HPI: The patient is an 81-year-old male who presented to the emergency department for an evaluation of generalized weakness. The patient notices severe generalized weakness to the point where he cannot stand or walk. He denies having any nausea or vomiting. He denies having any vertigo symptoms.he has had no decreased urine output. The patient was seen in our facility recently because he stopped eating because of severe headache which turned out to be neuralgia. The patient was started on Tegretol. He normally does take gabapentin and this dose has not been changed. He has had no fever. He said no trauma. He had come by ambulance because of the degree of his generalized weakness. He states his symptoms are somewhat improved with rest. ROS: See above HPI for pertinent positives & negatives. A total of 10 systems reviewed and were otherwise negative. PAST MEDICAL HISTORY: See Below PAST SURGICAL HISTORY: See Below FAMILY HISTORY: See Below SOCIAL HISTORY: See Below HOME MEDICATIONS: See Below ALLERGIES: See Below VITALS: See Below PHYSICAL EXAMINATION: GENERAL: The patient is awake and alert. He is nonanxious appearing and he appears comfortable. EYES: The conjunctivae are clear. The pupils are round and reactive. EARS, NOSE, MOUTH AND THROAT: The nose is without any evidence of any deformity. NECK: The neck is nontender and supple. RESPIRATORY: Normal respiratory effort is noted there is no evidence of wheezing rhonchi or rales CARDIOVASCULAR: Regular rate and rhythm was noted auscultation. Systolic murmur was suggested. GASTROINTESTINAL: The abdomen is soft. Abdomen is nontender. MUSCULOSKELETAL/EXTREMITIES: There is no evidence of gross deformity full range of motion is noted in the hips and shoulders. SKIN: Skin is warm and dry. Trace pedal edema was noted bilaterally. NEUROLOGIC: Patient is awake alert and oriented x3. Strength was symmetric but diminished. The patient is able to hold each leg off the bed for greater than 5 seconds. MEDICAL DECISION MAKING: The patient is an 81-year-old male who presented to the emergency department for an evaluation of generalized weakness. The patient was unable to walk without assistance. His states that this is new for him. I discussed the patient's laboratory and radiographic studies with him. He had no focal neurologic deficits but instead had generalized weakness. He was recently started on Tegretol. His level was not supratherapeutic but it is possible given the patient's age and comorbidities that he is not reacting well to this medication. I discussed patient's condition with the on-call [facility] hospitalist. They have agreed to evaluate patient in the emergency department for further management and disposition. Triage Nursing notes reviewed. Prior medical records reviewed Vital Signs: reviewed and remarkable for elevated blood pressure and bradycardia. Differential diagnosis: Infection, dehydration, metabolic abnormality, hypo/hyperglycemia, electrolyte disturbance, anemia, hypoxia, cardiac sources, intracerebral event, toxicologic, neurologic, as well as other pathologies. ER treatment provided: See below Diagnostics interpreted by me: ECG: EKG was obtained in the emergency department. My interpretation is sinus rhythm at 67 bpm. There is no ectopy. There is no acute ST segment abnormalities noted. This was compared to a tracing from April 17, 2022. No changes were noted. Cardiac Monitoring: An order was placed for continuous cardiac monitoring. The monitor shows a rate of 53 bpm with sinus bradycardia Laboratory studies: As stated above and show below. Imaging studies: See below Consultation(s): I discussed this case with Dr. Jaime who is on-call for the [facility] hospitalist group. Past Med/Surg History Medical History (Updated 05/12/22 @ 20:32 by Silvestre Thompson DO) Back pain Benign enlargement of prostate Hypertension Injury of left hand MGUS (monoclonal gammopathy of unknown significance) Peripheral neuropathy Rosacea Trigeminal neuralgia Surgical History History of ankle surgery History of carpal tunnel release of both wrists 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 with WALLER graft S/P inguinal hernia repair S/P knee replacement S/P tonsillectomy Family History Mother Hypertension Heart disease Diabetes Brother Parkinson disease Father Heart disease Social History Smoking Status: Unknown if ever smoked Hx Alcohol Use: Yes Alcohol type: beer Hx Substance Use: No Preferred Language: Thai Communication Ability: Effective Visual Impairment: No Limitations Hearing Ability: Normal 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 Beliefs That Will Affect Care: None marital status: Current Living Situation: Spouse Current Living Situation Comment: Daughter, current occupational status: retired Feels Safe at Home: Yes caffeine: No Seatbelt Use: always Sunscreen Use: Yes Assistive Devices: Cane and Walker Allergies Allergies Allergy/AdvReac Type Severity Reaction Status Date / Time lisinopril AdvReac Mild Cough Verified 05/12/22 17:01 Home Meds Home Medications Medication Instructions Recorded Confirmed aspirin 325 mg tablet,delayed 325 mg PO DAILY tab 07/07/19 05/12/22 release amoxicillin 500 mg capsule 2,000 mg PO DIRECTED PRN 04/14/22 05/12/22 [id number] C-Mn 500 1 cap PO BID 04/14/22 05/12/22 mg-400 mg capsule (Glucosamine Chondroitin Maximum Strength) gabapentin 300 mg capsule See Rx Instructions .ROUTE .COMPLEX 05/12/22 05/12/22 Previous Rx's Medication Instructions Recorded acetaminophen 325 mg tablet 650 mg PO Q4H PRN #30 tab 01/02/21 tamsulosin 0.4 mg capsule 0.4 mg PO DAILY #90 cap 05/28/21 solifenacin 5 mg tablet (Vesicare) 5 mg PO DAILY #90 tab 11/28/21 carbamazepine 200 mg tablet 200 mg PO TID #0 tab 04/19/22 metoprolol tartrate 50 mg tablet 25 mg PO BID #90 tab 04/19/22 oxycodone 10 mg tablet 5 mg PO Q6H PRN #0 tab 04/19/22 valsartan 80 mg tablet 80 mg PO DAILY #30 tab 04/26/22 nitroglycerin 0.4 mg sublingual 0.4 mg SL Q5M PRN #25 tab 04/30/22 tablet atorvastatin 40 mg tablet 40 mg PO DAILY #90 tab 05/02/22 Results & Data (ED) Vital Signs Vital Signs - 24 hr 05/12/22 13:42 05/12/22 13:50 05/12/22 14:00 Temperature 36.7 C Temperature Source Oral Pulse Rate 56 L 60 56 L Pulse Rate [Finger] 60 Pulse Rhythm [Finger] Regular Respiratory Rate 17 16 16 Respiratory Effort / Characteristics Non-Labored Respiratory Depth Normal Blood Pressure 143/85 H 128/67 Blood Pressure [Right Arm] 143/85 H Blood Pressure Mean 104 87 Blood Pressure Mean [Right Arm] 104 Pulse Oximetry 97 Oxygen Delivery Method Room Air Sepsis Recent Fever Within 48 Hours Yes Sepsis New/Unexplained Change in Mental Status N/A Sepsis Action Taken by Nursing No Action Required 05/12/22 14:30 05/12/22 15:00 05/12/22 15:01 Temperature Temperature Source Pulse Rate 54 L 69 65 Pulse Rate [Finger] Pulse Rhythm [Finger] Respiratory Rate 14 14 22 Respiratory Effort / Characteristics Respiratory Depth Blood Pressure 123/69 175/94 H Blood Pressure [Right Arm] Blood Pressure Mean 87 121 Blood Pressure Mean [Right Arm] Pulse Oximetry Oxygen Delivery Method Sepsis Recent Fever Within 48 Hours Sepsis New/Unexplained Change in Mental Status Sepsis Action Taken by Nursing 05/12/22 15:14 05/12/22 15:17 05/12/22 15:30 Temperature Temperature Source Pulse Rate 64 Pulse Rate [Finger] 68 Pulse Rhythm [Finger] Regular Respiratory Rate 18 16 Respiratory Effort / Characteristics Respiratory Depth Blood Pressure Blood Pressure [Right Arm] 175/94 H Blood Pressure Mean Blood Pressure Mean [Right Arm] 121 Pulse Oximetry 96 95 Oxygen Delivery Method Sepsis Recent Fever Within 48 Hours Sepsis New/Unexplained Change in Mental Status Sepsis Action Taken by Nursing 05/12/22 16:06 05/12/22 16:30 05/12/22 17:00 Temperature Temperature Source Pulse Rate 69 66 53 L Pulse Rate [Finger] Pulse Rhythm [Finger] Respiratory Rate 11 L 16 16 Respiratory Effort / Characteristics Non-Labored Respiratory Depth Normal Blood Pressure Blood Pressure [Right Arm] Blood Pressure Mean Blood Pressure Mean [Right Arm] Pulse Oximetry Oxygen Delivery Method Sepsis Recent Fever Within 48 Hours Sepsis New/Unexplained Change in Mental Status Sepsis Action Taken by Nursing 05/12/22 19:00 Temperature Temperature Source Pulse Rate Pulse Rate [Finger] Pulse Rhythm [Finger] Respiratory Rate Respiratory Effort / Characteristics Non-Labored Respiratory Depth Normal Blood Pressure Blood Pressure [Right Arm] Blood Pressure Mean Blood Pressure Mean [Right Arm] Pulse Oximetry Oxygen Delivery Method Sepsis Recent Fever Within 48 Hours Sepsis New/Unexplained Change in Mental Status Sepsis Action Taken by Half-Way Medications Current Medication List: was personally reviewed by me Laboratory Data Attestation: I reviewed the patient's lab results. Result diagrams: 05/12/22 13:42 07/03/22 13:42 Lab Results 05/12/22 05/12/22 05/12/22 Range/Units 13:42 13:42 13:42 WBC 6.35 (4.8-10.8) K/uL RBC 4.27 L (4.7-6.1) M/uL Hgb 13.5 L (14.0-18.0) g/dL Hct 39.6 L (42-52) % MCV 92.7 (80-100) fL MCH 31.6 (25-34) pg MCHC 34.1 (32-36) g/dL RDW Std Deviation 45.7 (36.4-46.3) fL RDW Coeff of Agustín 13.4 (11.5-14.5) % Plt Count 237 (130-400) K/uL MPV 9.5 (7.4-10.4) fL Immature Gran % (Auto) 0.5 % Neut % (Auto) 63.7 % Lymph % (Auto) 20.3 % [place] % (Auto) 10.9 % Eos % (Auto) 4.1 % Baso % (Auto) 0.5 % Neut # (Auto) 4.05 (1.4-6.5) K/uL Lymph # (Auto) 1.29 (1.2-3.4) K/uL [place] # (Auto) 0.69 H (0.11-0.59) K/uL Eos # (Auto) 0.26 (0-0.5) K/uL Baso # (Auto) 0.03 (0-0.2) K/uL Immature Gran # (Auto) 0.03 H (0.00-0.02) K/uL PT 11.0 (9.0-12.0) Seconds INR 1.0 (0.9-1.1) APTT 25.6 (21.0-31.0) Seconds PTT Ratio 0.9 Sodium 140 (136-145) mmol/L Potassium 4.2 (3.5-5.1) mmol/L Chloride 104 (98-107) mmol/L Carbon Dioxide 31 (21-32) mmol/L Anion Gap 5 (3-11) BUN 28 H (6-23) mg/dl Creatinine 0.93 (0.6-1.4) mg/dl Est Cr Clr Drug Dosing Not Reportable Est GFR ( Amer) 88.9 ml/min Est GFR (Non-Af Amer) 76.7 ml/min BUN/Creatinine Ratio 30.1 H (10-20) Glucose 106 H (70-99(Fasting)) mg/dl Calcium 8.7 (8.5-10.1) mg/dl Magnesium 2.2 (1.7-2.4) mg/dl Total Bilirubin 0.3 (0.2-1.0) mg/dl AST 15 (13-39) U/L ALT 17 (7-52) U/L Alkaline Phosphatase 66 (34-104) U/L Total Creatine Kinase 34 (30-223) U/L Troponin I High Sens 12.4 D (0-20) pg/ml Total Protein 6.7 (6.0-8.3) gm/dl Albumin 4.0 (3.4-5.0) gm/dl Globulin 2.7 (2.5-4.0) gm/dl Albumin/Globulin Ratio 1.5 (0.9-2) TSH (0.300-4.500) uIu/ml Urine Color Urine Appearance (Clear) Urine pH (4.5-7.5) Ur Specific [place] (1.000-1.030) Urine Protein (Negative) Urine Glucose (UA) (Negative) Urine Ketones (Negative) Urine Blood (Negative) Urine Nitrite (Negative) Urine Bilirubin (Negative) Urine Urobilinogen (Negative) Ur Leukocyte Esterase (Negative) Carbamazepine (4-12) mcg/ml SARS-CoV-2, RNA, NAAT (NEGATIVE) 05/12/22 05/12/22 05/12/22 Range/Units 13:42 13:42 16:20 WBC (4.8-10.8) K/uL RBC (4.7-6.1) M/uL Hgb (14.0-18.0) g/dL Hct (42-52) % MCV (80-100) fL MCH (25-34) pg MCHC (32-36) g/dL RDW Std Deviation (36.4-46.3) fL RDW Coeff of Agustín (11.5-14.5) % Plt Count (130-400) K/uL MPV (7.4-10.4) fL Immature Gran % (Auto) % Neut % (Auto) % Lymph % (Auto) % [place] % (Auto) % Eos % (Auto) % Baso % (Auto) % Neut # (Auto) (1.4-6.5) K/uL Lymph # (Auto) (1.2-3.4) K/uL [place] # (Auto) (0.11-0.59) K/uL Eos # (Auto) (0-0.5) K/uL Baso # (Auto) (0-0.2) K/uL Immature Gran # (Auto) (0.00-0.02) K/uL PT (9.0-12.0) Seconds INR (0.9-1.1) APTT (21.0-31.0) Seconds PTT Ratio Sodium (136-145) mmol/L Potassium (3.5-5.1) mmol/L Chloride (98-107) mmol/L Carbon Dioxide (21-32) mmol/L Anion Gap (3-11) BUN (6-23) mg/dl Creatinine (0.6-1.4) mg/dl Est Cr Clr Drug Dosing Est GFR ( Amer) ml/min Est GFR (Non-Af Amer) ml/min BUN/Creatinine Ratio (10-20) Glucose (70-99(Fasting)) mg/dl Calcium (8.5-10.1) mg/dl Magnesium (1.7-2.4) mg/dl Total Bilirubin (0.2-1.0) mg/dl AST (13-39) U/L ALT (7-52) U/L Alkaline Phosphatase (34-104) U/L Total Creatine Kinase (30-223) U/L Troponin I High Sens (0-20) pg/ml Total Protein (6.0-8.3) gm/dl Albumin (3.4-5.0) gm/dl Globulin (2.5-4.0) gm/dl Albumin/Globulin Ratio (0.9-2) TSH 0.841 (0.300-4.500) uIu/ml Urine Color Yellow Urine Appearance Clear (Clear) Urine pH 5.5 (4.5-7.5) Ur Specific [place] 1.011 (1.000-1.030) Urine Protein Negative (Negative) Urine Glucose (UA) Negative (Negative) Urine Ketones Negative (Negative) Urine Blood Negative (Negative) Urine Nitrite Negative (Negative) Urine Bilirubin Negative (Negative) Urine Urobilinogen Negative (Negative) Ur Leukocyte Esterase Negative (Negative) Carbamazepine 11.4 (4-12) mcg/ml SARS-CoV-2, RNA, NAAT (NEGATIVE) 05/12/22 Range/Units 17:14 WBC (4.8-10.8) K/uL RBC (4.7-6.1) M/uL Hgb (14.0-18.0) g/dL Hct (42-52) % MCV (80-100) fL MCH (25-34) pg MCHC (32-36) g/dL RDW Std Deviation (36.4-46.3) fL RDW Coeff of Agustín (11.5-14.5) % Plt Count (130-400) K/uL MPV (7.4-10.4) fL Immature Gran % (Auto) % Neut % (Auto) % Lymph % (Auto) % [place] % (Auto) % Eos % (Auto) % Baso % (Auto) % Neut # (Auto) (1.4-6.5) K/uL Lymph # (Auto) (1.2-3.4) K/uL [place] # (Auto) (0.11-0.59) K/uL Eos # (Auto) (0-0.5) K/uL Baso # (Auto) (0-0.2) K/uL Immature Gran # (Auto) (0.00-0.02) K/uL PT (9.0-12.0) Seconds INR (0.9-1.1) APTT (21.0-31.0) Seconds PTT Ratio Sodium (136-145) mmol/L Potassium (3.5-5.1) mmol/L Chloride (98-107) mmol/L Carbon Dioxide (21-32) mmol/L Anion Gap (3-11) BUN (6-23) mg/dl Creatinine (0.6-1.4) mg/dl Est Cr Clr Drug Dosing Est GFR ( Amer) ml/min Est GFR (Non-Af Amer) ml/min BUN/Creatinine Ratio (10-20) Glucose (70-99(Fasting)) mg/dl Calcium (8.5-10.1) mg/dl Magnesium (1.7-2.4) mg/dl Total Bilirubin (0.2-1.0) mg/dl AST (13-39) U/L ALT (7-52) U/L Alkaline Phosphatase (34-104) U/L Total Creatine Kinase (30-223) U/L Troponin I High Sens (0-20) pg/ml Total Protein (6.0-8.3) gm/dl Albumin (3.4-5.0) gm/dl Globulin (2.5-4.0) gm/dl Albumin/Globulin Ratio (0.9-2) TSH (0.300-4.500) uIu/ml Urine Color Urine Appearance (Clear) Urine pH (4.5-7.5) Ur Specific [place] (1.000-1.030) Urine Protein (Negative) Urine Glucose (UA) (Negative) Urine Ketones (Negative) Urine Blood (Negative) Urine Nitrite (Negative) Urine Bilirubin (Negative) Urine Urobilinogen (Negative) Ur Leukocyte Esterase (Negative) Carbamazepine (4-12) mcg/ml SARS-CoV-2, RNA, NAAT NEGATIVE (NEGATIVE) Administered Medications Discontinued Medications Sodium Chloride (Nss) 500 mls @ 999 mls/hr IV .Q31M GOLD Stop: 05/12/22 15:15 Last Infusion: 05/12/22 16:14 Dose: 0 mls/hr Documented by: [id number] Admin: 05/12/22 15:29 Dose: 999 mls/hr Documented by: [id number] Imaging Data Radiologist's Impression: Chest X-Ray 05/12/22 14:43 XR chest 1V portable CLINICAL HISTORY: weakness COMPARISON STUDY: Chest radiograph December 07, 2021. FINDINGS: Median sternotomy wires and mediastinal surgical clips are noted. Cardiomegaly is unchanged. No evidence for pulmonary edema. Lower lung interstitial thickening is unchanged and likely chronic. No consolidation to suggest pneumonia. Appearance of the chest is unchanged. IMPRESSION: No acute cardiopulmonary findings. No change in appearance of the chest. ACT 112: Negative or not required by law. Electronically signed by: Raul Darden M.D. 05/12/2022 3:[address] 05/12/22 14:43 CT OF THE HEAD WITHOUT CONTRAST CLINICAL HISTORY: Weakness. Fall. COMPARISON STUDY: MRI of the brain February 27, 2022. Head CT October 01, 2021. CT DOSE: 709.48 mGy.cm TECHNIQUE: Helical axial images of the head were obtained without IV contrast. Automated exposure control was utilized for the study. A dose lowering technique was utilized adhering to the principles of ALARA. FINDINGS: No acute intracranial hemorrhage, midline shift or mass effect is present. Atrophy is again noted. Appearance of the brain is unchanged. The ventricular system is unremarkable. The basal cisterns are patent. No extra- axial collections are present. There are no findings to suggest acute dural sinus thrombosis or acute territorial infarct. No significant calvarial abnormalities are present. Visualized portions of the sinuses and mastoid air cells are clear. IMPRESSION: 1. No acute intracranial findings. No change in appearance of the brain. 2. No acute calvarial fracture. ACT 112: Negative or not required by law. Electronically signed by: Raul Darden M.D. 05/12/2022 4:44 PM Discharge Plan Visit Data Chief Complaint: Leg Weakness, Bilateral ED Provider: Silvestre Thompson Discharge Problem: Weakness Patient Disposition: Being Evaluated by Hospitalist Forms Stand Alone Forms: [facility] Prescriptions Prescriptions: No Action atorvastatin 40 mg tablet 40 mg PO DAILY Qty: 90 RF: 3 solifenacin [Vesicare] 5 mg tablet 5 mg PO DAILY Qty: 90 RF: 3 nitroglycerin 0.4 mg tablet, sublingual 0.4 mg SL Q5M PRN (Reason: chest pain) Qty: 25 RF: 3 tamsulosin 0.4 mg capsule 0.4 mg PO DAILY Qty: 90 RF: 3 aspirin 325 mg tablet,delayed release (DR/EC) 325 mg PO DAILY RF: 0 valsartan 80 mg tablet 80 mg PO DAILY Qty: 30 RF: 2 acetaminophen 325 mg Tablet 650 mg PO Q4H PRN (Reason: pain) Qty: 30 RF: 0 gabapentin 300 mg capsule See Rx Instructions .ROUTE .COMPLEX RF: 0 [id number] C-Mn [Glucosamine Chondroitin MaxStr] 500-400 mg Capsule 1 cap PO BID RF: 0 amoxicillin 500 mg capsule 2,000 mg PO DIRECTED PRN (Reason: Prophylaxis PRIOR TO DENTAL APPT.) RF: 0 carbamazepine 200 mg tablet 200 mg PO TID Qty: 0 RF: 0 metoprolol tartrate 50 mg tablet 25 mg PO BID Qty: 90 RF: 3 oxycodone 10 mg tablet 5 mg PO Q6H PRN (Reason: Pain) Qty: 0 RF: 0 Referrals Referrals: Jimy Tobias DO [Primary Care Provider] -
[2022-05-12 14:54] LABS: Basophils # (auto) 0.03 K/uL (0-0.2); Basophils % (auto) 0.5 %; Eosinophils # (auto) 0.26 K/uL (0-0.5); Eosinophils % (auto) 4.1 %; Hematocrit (blood only) 39.6 % (42-52); Hemoglobin 13.5 g/dL (14.0-18.0); Immature Granulocytes # (auto) 0.03 K/uL (0.00-0.02); Immature Granulocytes % (auto) 0.5 %; Lymphocytes # (auto) 1.29 K/uL (1.2-3.4); Lymphocytes % (auto) 20.3 %; Mean Corpuscular Hemoglobin 31.6 pg (25-34); Mean Corpuscular Hgb Conc 34.1 g/dL (32-36); Mean Corpuscular Volume 92.7 fL (80-100); Mean Platelet Volume 9.5 fL (7.4-10.4); Monocytes # (auto) 0.69 K/uL (0.11-0.59); Monocytes % (auto) 10.9 %; Neutrophils # (auto) 4.05 K/uL (1.4-6.5); Neutrophils % (auto) 63.7 %; Platelet Count 237 K/uL (130-400); RDW Coefficient of Variation 13.4 % (11.5-14.5); RDW Standard Deviation 45.7 fL (36.4-46.3); Red Blood Count 4.27 M/uL (4.7-6.1); White Blood Count 6.35 K/uL (4.8-10.8)
[2022-05-12 15:03] LABS: Partial Thromboplastin Ratio 0.9; Partial Thromboplastin Time 25.6 Seconds (21.0-31.0)
[2022-05-12 15:29] LABS: Alanine Aminotransferase 17 U/L (7-52); Albumin Globulin Ratio 1.5 (0.9-2); Alkaline Phosphatase 66 U/L (34-104); Anion Gap 5 (3-11); Aspartate Aminotransferase 15 U/L (13-39); BUN Creatinine Ratio 30.1 (10-20); Bilirubin,Total 0.3 mg/dl (0.2-1.0); Blood Urea Nitrogen 28 mg/dl (6-23); Calcium 8.7 mg/dl (8.5-10.1); Carbon Dioxide 31 mmol/L (21-32); Chloride 104 mmol/L (98-107); Creatine Kinase 34 U/L (30-223); Est GFR (African American) 88.9 ml/min; Est GFR (Non-African American) 76.7 ml/min; Globulin 2.7 gm/dl (2.5-4.0); Glucose 106 mg/dl (70-99(Fasting)); Magnesium 2.2 mg/dl (1.7-2.4); Potassium 4.2 mmol/L (3.5-5.1); Sodium 140 mmol/L (136-145); Total Protein 6.7 gm/dl (6.0-8.3)
[2022-05-12 15:30] LABS: Troponin I High Sensitivity 12.4 pg/ml (0-20)
--- NOTE | 2022-05-12 16:00 | XRay Report ---
XR chest 1V portable CLINICAL HISTORY: weakness COMPARISON STUDY: Chest radiograph December 07, 2021. FINDINGS: Median sternotomy wires and mediastinal surgical clips are noted. Cardiomegaly is unchanged . No evidence for pulmonary edema. Lower lung interstitial thickening is unchanged and likely chronic . No consolidation to suggest pneumonia. Appearance of the chest is unchanged. IMPRESSION: No acute cardiopulmonary findings. No change in appearance of the chest. ACT 112: Negative or not required by law. Electronically signed by: Raul Darden M.D. 05/12/2022 3:59 PM
[2022-05-12 16:38] LABS: Appearance Urine Clear (Clear); Bilirubin Urine Negative (Negative); Blood Urine Negative (Negative); Color Urine Yellow; Glucose Urine UA Negative (Negative); Ketones Urine Negative (Negative); Leukocyte Esterase Urine Negative (Negative); Nitrite Urine Negative (Negative); Protein Urine Negative (Negative); Specific Gravity Urine 1.011 (1.000-1.030); Urobilinogen Urine Negative (Negative); pH Urine 5.5 (4.5-7.5)
--- NOTE | 2022-05-12 16:46 | CT Scan Report ---
CT OF THE HEAD WITHOUT CONTRAST CLINICAL HISTORY: Weakness. Fall. COMPARISON STUDY: MRI of the brain February 27, 2022. Head CT October 01, 2021. CT DOSE: 709.48 mGy.cm TECHNIQUE: Helical axial images of the head were obtained without IV contrast. Automated exposure con trol was utilized for the study. A dose lowering technique was utilized adhering to the principles o f ALARA. FINDINGS: No acute intracranial hemorrhage, midline shift or mass effect is present. Atrophy is again noted. Appearance of the brain is unchanged. The ventricular system is unremarkable. The basal ciste rns are patent. No extra-axial collections are present. There are no findings to suggest acute dural sinus thrombosis or acute territorial infarct. No significant calvarial abnormalities are present. Vi sualized portions of the sinuses and mastoid air cells are clear. IMPRESSION: 1. No acute intracranial findings. No change in appearance of the brain. 2. No acute calvarial fracture. ACT 112: Negative or not required by law. Electronically signed by: Raul Darden M.D. 05/12/2022 4:44 PM
--- NOTE | 2022-05-12 19:33 | History & Physical Report ---
Date of Service May 12, 2022 Assessment & Plan (1) Weakness: Plan: Acute, bilateral LE weakness possibly with some level of dizziness as well, though patient not entirely clear. On exam, strength is 5/5 in all extremities and muscle groups, but sensation is markedly decreased to light touch and proprioception. - B12/folate ordered - PT/OT (2) Peripheral neuropathy: Plan: Mentioned in passing in neurology note from 03/18/2022 without any known cause. - Will get B12/folate - Consider further outpatient work-up as appropriate or consider reaching out to his [facility] neurologist if felt needed (3) Trigeminal neuralgia: Plan: Significant pain from this. Plan for nerve ablation on May 21, and his very much does not want to miss this. - Continue: * Tylenol 1,000 mg PO BID * Carbamazepine 200 mg PO TID * Gabapentin 600 mg TIDAC and 300 mg PO HS - Added tramadol 50 mg PO Q6h PRN as he has not taken the oxycodone in a long time and the above regimen has kept his pain tolerable. (4) Hypertension: Plan: BP in the ER was 175/95. BP meds were actually decreased by PCP on 04/30/2022 for borderline hypotension (100/65). - Continue home beta-ellyn & ARB - Monitor (5) S/P CABG (coronary artery bypass graft): Plan: CABG at [place] in 2006. - Continue home ASA, but reduce dose to 81 mg. No evidence to indicate 325 mg confers more protection, but does have additional GI risk. - Continue beta-ellyn, ARB, statin (6) Benign enlargement of prostate: Plan: No LUTS on exam today. - Continue home solifenacin and tamsulosin (7) DVT prophylaxis: Plan: Lovenox 40 mg SQ daily Code status - Patient would like 1 round of CPR/defibrillation. Does not want intubation or artificial ventilation. This was stated in presence of who is in agreement. History of Present Illness Primary Care Provider: Jimy Tobias, 81yo M w/ hx of trigeminal neuralgia who presents with generalized weakness. The patient has had a rough year, and was hospitalized in November in [facility] with weakness and was eventually discharged home. He was then admitted in April for severe trigeminal neuralgia that caused him to lose quite a bit of weight. Today, he awoke in his normal state of health. He and his went to buddhist. Sometime in buddhist or shortly after, the patient reports that he became dizzy. He is not a good historian and cannot tell me much about the dizziness other than it was present for at least a few minutes. He was able to get home in the car with his driving (which is typical). Later in the afternoon, his son came to drive him and his to [place] for an afternoon out. When he was going down the steps of their house, he cried out that he was feeling wobbly and that his feet were like "Jello." His son had to pull him back up the steps and onto the glider and they called 911. The patient reports that he is no longer dizzy at this time, but is not entirely sure when the dizziness resolved. Allergies Allergy/AdvReac Type Severity Reaction Status Date / Time lisinopril AdvReac Mild Cough Verified 05/12/22 17:01 Home Medications Medication Instructions Recorded Confirmed Type aspirin 325 mg tablet,delayed 325 mg PO DAILY tab 07/07/19 05/12/22 History release acetaminophen 325 mg tablet 650 mg PO Q4H PRN #30 tab 01/02/21 05/12/22 Rx tamsulosin 0.4 mg capsule 0.4 mg PO DAILY #90 cap 05/28/21 05/12/22 Rx solifenacin 5 mg tablet (Vesicare) 5 mg PO DAILY #90 tab 11/28/21 05/12/22 Rx amoxicillin 500 mg capsule 2,000 mg PO DIRECTED PRN 04/14/22 05/12/22 History nupimucxjnl-[id number]-[id number] C-Mn 500 1 cap PO BID 04/14/22 05/12/22 History mg-400 mg capsule (Glucosamine Chondroitin Maximum Strength) carbamazepine 200 mg tablet 200 mg PO TID #0 tab 04/19/22 05/12/22 Rx metoprolol tartrate 50 mg tablet 25 mg PO BID #90 tab 04/19/22 05/12/22 Rx oxycodone 10 mg tablet 5 mg PO Q6H PRN #0 tab 04/19/22 05/12/22 Rx valsartan 80 mg tablet 80 mg PO DAILY #30 tab 04/26/22 05/12/22 Rx nitroglycerin 0.4 mg sublingual 0.4 mg SL Q5M PRN #25 tab 04/30/22 05/12/22 Rx tablet atorvastatin 40 mg tablet 40 mg PO DAILY #90 tab 05/02/22 05/12/22 Rx gabapentin 300 mg capsule See Rx Instructions .ROUTE .COMPLEX 05/12/22 05/12/22 History Past Med/Surg History Medical History (Updated 05/12/22 @ 19:53 by Cal Jaime MD) Back pain Benign enlargement of prostate Hypertension Injury of left hand MGUS (monoclonal gammopathy of unknown significance) Peripheral neuropathy Rosacea Trigeminal neuralgia Surgical History History of ankle surgery History of carpal tunnel release of both wrists 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 with WALLER graft S/P inguinal hernia repair S/P knee replacement S/P tonsillectomy Family History Mother Hypertension Heart disease Diabetes Brother Parkinson disease Father Heart disease Social History Smoking Status: Unknown if ever smoked Hx Alcohol Use: Yes Alcohol type: beer Hx Substance Use: No Preferred Language: Czech Communication Ability: Effective Visual Impairment: No Limitations Hearing Ability: Normal Sociocultural Anthropology Professor Required: No Beliefs That Will Affect Care: None marital status: Current Living Situation: Spouse Current Living Situation Comment: Daughter, current occupational status: retired Feels Safe at Home: Yes caffeine: No Seatbelt Use: always Sunscreen Use: Yes Assistive Devices: Cane and Walker Review of Systems Review of Systems: All systems reviewed & are unremarkable except as noted in HPI & below Physical Exam Constitutional: WD/WN, vitals as above Eyes: EOM intact bilaterally; no conjunctival abnormality ENMT: external ear and nose normal, oropharynx normal Neck: trachea midline, no thyromegaly normal visual inspection Respiratory: normal respiratory effort, lungs clear to auscultation no respiratory distress Cardiovascular: RRR, no murmur, no edema Gastrointestinal (Abdomen): Inspection/Auscultation: abdomen normal to inspection; abdomen not distended Musculoskeletal: no cyanosis or clubbing, extremities motor strength 5/5 Skin: no rashes, warm and dry Neurologic: moves all extremities and awake Motor/Sensory: + sensory deficit (Very poor light touch and proprioception in lower extremities) Psychiatric: Orientation: alert, oriented to person and cooperative Results & Data Results & Data ([facility]) Vital Signs (Past 12 Hours) Vital Signs Temp Pulse Pulse Resp BP BP Pulse Ox 05/12/22 17:00 53 L 16 05/12/22 16:30 66 16 05/12/22 16:06 69 11 L 05/12/22 15:30 64 16 05/12/22 15:17 68 18 175/94 H 95 05/12/22 15:14 96 05/12/22 15:01 65 22 175/94 H 05/12/22 15:00 69 14 05/12/22 14:30 54 L 14 123/69 05/12/22 14:00 56 L 16 128/67 05/12/22 13:50 36.7 C 60 60 16 143/85 H 143/85 H 97 05/12/22 13:42 56 L 17 Code Status & VTE Plan VTE Prophylaxis Plan VTE Prophylaxis will be ordered: Yes PG Care Time/CCT Total # of Minutes Spent Total Time Spent with Patient: Total time spent is greater than 50% in coordination of care (as documented) at patient's floor/unit and/or counseling patient: Coding Level of Care Code INT OBSERVATION CARE 70M LVL 3 Diagnoses Weakness R53.1 S/P CABG (coronary artery bypass graft) Z95.1 Benign enlargement of prostate N40.0 Peripheral neuropathy G62.9 Trigeminal neuralgia G50.0 DVT prophylaxis Z29.9 Hypertension I10
[2022-05-12] MEDS ORDERED: ONDANSETRON INJ 2 MG/ML 2 ML VIAL IV PRN (21:42)
[2022-05-12] MEDS ORDERED: traMADol HCL 50 MG TABLET PO PRN (21:42)
[2022-05-12] MEDS: carBAMazepine 200 MG TABLET PO SCH (22:16)
[2022-05-12] MEDS: METOPROLOL TARTRATE 25 MG TAB PO SCH (22:16)
[2022-05-12] MEDS: GABAPENTIN 300 MG CAP PO SCH (22:17)
[2022-05-12] MEDS: ACETAMINOPHEN 500 MG TAB PO SCH ×2 (22:18→22:20)
[2022-05-13] MEDS: GABAPENTIN 300 MG CAP PO SCH ×4 (06:43→20:21)
[2022-05-13] MEDS: ENOXAPARIN INJ 40 MG/0.4 ML SYR SQ SCH (06:44)
[2022-05-13 07:08] LABS: Hematocrit (blood only) 37.9 % (42-52); Hemoglobin 12.6 g/dL (14.0-18.0); Mean Corpuscular Hemoglobin 30.5 pg (25-34); Mean Corpuscular Hgb Conc 33.2 g/dL (32-36); Mean Corpuscular Volume 91.8 fL (80-100); Mean Platelet Volume 9.5 fL (7.4-10.4); Platelet Count 214 K/uL (130-400); RDW Coefficient of Variation 13.6 % (11.5-14.5); RDW Standard Deviation 45.5 fL (36.4-46.3); Red Blood Count 4.13 M/uL (4.7-6.1); White Blood Count 6.87 K/uL (4.8-10.8)
[2022-05-13 07:29] LABS: Folate (Folic Acid) 8.97 ng/ml (>5.38)
[2022-05-13 08:15] LABS: BUN Creatinine Ratio 23.9 (10-20); Calcium 8.3 mg/dl (8.5-10.1); Magnesium 2.1 mg/dl (1.7-2.4); Potassium 3.9 mmol/L (3.5-5.1)
[2022-05-13] MEDS: ASPIRIN 81 MG ECTAB PO SCH (08:16)
[2022-05-13] MEDS: ACETAMINOPHEN 500 MG TAB PO SCH ×2 (08:16→20:21)
[2022-05-13] MEDS: ATORVASTATIN 40 MG TAB PO SCH (08:17)
[2022-05-13] MEDS: carBAMazepine 200 MG TABLET PO SCH ×3 (08:17→20:20)
[2022-05-13] MEDS: TAMSULOSIN HCL 0.4 MG CAP PO SCH (08:18)
[2022-05-13] MEDS: VALSARTAN 80 MG TAB PO SCH (08:18)
[2022-05-13] MEDS: METOPROLOL TARTRATE 25 MG TAB PO SCH ×2 (08:18→20:21)
--- NOTE | 2022-05-13 12:49 | Hospitalist Progress Note ---
Date of Service May 13, 2022 Assessment & Plan (1) Weakness: Plan: Acute, bilateral LE weakness possibly with some level of dizziness as well, though patient not entirely clear. On exam, strength is 5/5 in all extremities and muscle groups, but sensation is markedly decreased to light touch and proprioception. - B12/folate ordered - PT/OT (2) Peripheral neuropathy: Plan: Mentioned in passing in neurology note from 03/18/2022 without any known cause. - Will get B12/folate - Consider further outpatient work-up as appropriate or consider reaching out to his [facility] neurologist if felt needed (3) Trigeminal neuralgia: Plan: Significant pain from this. Plan for nerve ablation on May 21, and his very much does not want to miss this. - Continue: * Tylenol 1,000 mg PO BID * Carbamazepine 200 mg PO TID * Gabapentin 600 mg TIDAC and 300 mg PO HS - Added tramadol 50 mg PO Q6h PRN as he has not taken the oxycodone in a long time and the above regimen has kept his pain tolerable. (4) Hypertension: Plan: BP in the ER was 175/95. BP meds were actually decreased by PCP on 04/30/2022 for borderline hypotension (100/65). - Continue home beta-ellyn & ARB - Monitor (5) S/P CABG (coronary artery bypass graft): Plan: CABG at [place] in 2006. - Continue home ASA, but reduce dose to 81 mg. No evidence to indicate 325 mg confers more protection, but does have additional GI risk. - Continue beta-ellyn, ARB, statin (6) Benign enlargement of prostate: Plan: No LUTS on exam today. - Continue home solifenacin and tamsulosin (7) DVT prophylaxis: Plan: Lovenox 40 mg SQ daily Code status - Patient would like 1 round of CPR/defibrillation. Does not want intubation or artificial ventilation. This was stated in presence of who is in agreement. Admission and Anticipated Discharge Date Admission Date: May 12, 2022 Results & Data Results & Data ([facility]) Vital Signs (Past 12 Hours) Vital Signs Temp Pulse Resp BP Pulse Ox 05/13/22 07:47 36.3 C L 50 L 18 142/72 H 96 PG Care Time/CCT Total # of Minutes Spent Total Time Spent with Patient: Total time spent is greater than 50% in coordination of care (as documented) at patient's floor/unit and/or counseling patient: Coding Diagnoses Weakness R53.1 Peripheral neuropathy G62.9 Trigeminal neuralgia G50.0 Hypertension I10 S/P CABG (coronary artery bypass graft) Z95.1 Benign enlargement of prostate N40.0 DVT prophylaxis Z29.9
[2022-05-13] MEDS: CYANOCOBALAMIN 1000 MCG/ML VIAL IM SCH (13:46)
--- NOTE | 2022-05-13 13:55 | Hospitalist Progress Note ---
Date of Service May 13, 2022 Assessment & Plan (1) Weakness: Plan: Etiology not clear; B12 level low side, replace (2) Dizziness: Plan: Resolved; orthostatic check and observe (3) Peripheral neuropathy: Plan: Replace B12, outpatient neurology follow-up (4) Trigeminal neuralgia: Plan: Significant pain from this. Plan for nerve ablation on May 21, and his very much does not want to miss this. - Continue: * Tylenol 1,000 mg PO BID * Carbamazepine 200 mg PO TID * Gabapentin 600 mg TIDAC and 300 mg PO HS - Added tramadol 50 mg PO Q6h PRN on admissionno change. (5) Hypertension: Plan: Acceptable, noted low-grade bradycardia, no change (6) S/P CABG (coronary artery bypass graft): Plan: CABG at [place] in 2006. - Continue home ASA, but reduce dose to 81 mg. No evidence to indicate 325 mg confers more protection, but does have additional GI risk. - Continue beta-ellyn, ARB, statin (7) Benign enlargement of prostate: Plan: No LUTS on exam today. - Continue home solifenacin and tamsulosin (8) DVT prophylaxis: Plan: Lovenox 40 mg SQ daily Code status - Patient would like 1 round of CPR/defibrillation. Does not want intubation or artificial ventilation. This was stated in presence of who is in agreement. Admission and Anticipated Discharge Date Admission Date: May 12, 2022 Subjective Follow-up of dizziness, leg wobblinessfeels better; walked around with therapy Physical Exam Physical Exam: Constitutional and general: No acute distress, looks biologic age Head and face: No puffiness, atraumatic Eyes: No scleral icterus, extraocular movements normal Neck: Supple, no JVD Musculoskeletal: No acute joint swelling, no bony abnormalities Skin/dermatologic/integument: No rash, no purpura Hematologic and lymphatic: pallor +, no petechia Gastrointestinal/abdomen: Nondistended, soft, nonacute Neurologic: Cranial nerves intact, nonfocal Psychiatry: Awake, alert, pleasant, communicative Cardiovascular: Heart rhythm regular, no rub, no murmur, no gallop Respiratory: Chest movements equal, no use of accessory muscles, no adventitious sounds Extremities: No edema, no cyanosis Results & Data Results & Data ([facility]) Vital Signs (Past 12 Hours) Vital Signs Temp Pulse Resp BP Pulse Ox 05/13/22 07:47 36.3 C L 50 L 18 142/72 H 96 Laboratory Results Laboratory Results - last 24 hr 05/12/22 05/12/22 05/12/22 13:42 13:42 13:42 WBC 6.35 RBC 4.27 L Hgb 13.5 L Hct 39.6 L MCV 92.7 MCH 31.6 MCHC 34.1 RDW Std Deviation 45.7 RDW Coeff of Agustín 13.4 Plt Count 237 MPV 9.5 Immature Gran % (Auto) 0.5 Neut % (Auto) 63.7 Lymph % (Auto) 20.3 Daggett % (Auto) 10.9 Eos % (Auto) 4.1 Baso % (Auto) 0.5 Neut # (Auto) 4.05 Lymph # (Auto) 1.29 Daggett # (Auto) 0.69 H Eos # (Auto) 0.26 Baso # (Auto) 0.03 Immature Gran # (Auto) 0.03 H PT 11.0 INR 1.0 APTT 25.6 PTT Ratio 0.9 Sodium 140 Potassium 4.2 Chloride 104 Carbon Dioxide 31 Anion Gap 5 BUN 28 H Creatinine 0.93 Est Cr Clr Drug Dosing Not Reportable Est GFR ( Amer) 88.9 Est GFR (Non-Af Amer) 76.7 BUN/Creatinine Ratio 30.1 H Glucose 106 H Calcium 8.7 Magnesium 2.2 Total Bilirubin 0.3 AST 15 ALT 17 Alkaline Phosphatase 66 Total Creatine Kinase 34 Troponin I High Sens 12.4 D Total Protein 6.7 Albumin 4.0 Globulin 2.7 Albumin/Globulin Ratio 1.5 Vitamin B12 Folate TSH Urine Color Urine Appearance Urine pH Ur Specific [place] Urine Protein Urine Glucose (UA) Urine Ketones Urine Blood Urine Nitrite Urine Bilirubin Urine Urobilinogen Ur Leukocyte Esterase Carbamazepine SARS-CoV-2, RNA, NAAT 05/12/22 05/12/22 05/12/22 13:42 13:42 16:20 WBC RBC Hgb Hct MCV MCH MCHC RDW Std Deviation RDW Coeff of Agustín Plt Count MPV Immature Gran % (Auto) Neut % (Auto) Lymph % (Auto) Daggett % (Auto) Eos % (Auto) Baso % (Auto) Neut # (Auto) Lymph # (Auto) Daggett # (Auto) Eos # (Auto) Baso # (Auto) Immature Gran # (Auto) PT INR APTT PTT Ratio Sodium Potassium Chloride Carbon Dioxide Anion Gap BUN Creatinine Est Cr Clr Drug Dosing Est GFR ( Amer) Est GFR (Non-Af Amer) BUN/Creatinine Ratio Glucose Calcium Magnesium Total Bilirubin AST ALT Alkaline Phosphatase Total Creatine Kinase Troponin I High Sens Total Protein Albumin Globulin Albumin/Globulin Ratio Vitamin B12 Folate TSH 0.841 Urine Color Yellow Urine Appearance Clear Urine pH 5.5 Ur Specific [place] 1.011 Urine Protein Negative Urine Glucose (UA) Negative Urine Ketones Negative Urine Blood Negative Urine Nitrite Negative Urine Bilirubin Negative Urine Urobilinogen Negative Ur Leukocyte Esterase Negative Carbamazepine 11.4 SARS-CoV-2, RNA, NAAT 05/12/22 05/13/22 05/13/22 17:14 05:51 05:51 WBC 6.87 RBC 4.13 L Hgb 12.6 L Hct 37.9 L MCV 91.8 MCH 30.5 MCHC 33.2 RDW Std Deviation 45.5 RDW Coeff of Agustín 13.6 Plt Count 214 MPV 9.5 Immature Gran % (Auto) Neut % (Auto) Lymph % (Auto) Daggett % (Auto) Eos % (Auto) Baso % (Auto) Neut # (Auto) Lymph # (Auto) Daggett # (Auto) Eos # (Auto) Baso # (Auto) Immature Gran # (Auto) PT INR APTT PTT Ratio Sodium 141 Potassium 3.9 Chloride 106 Carbon Dioxide 32 Anion Gap 3 BUN 17 Creatinine 0.71 Est Cr Clr Drug Dosing 84.0 Est GFR ( Amer) 102.0 Est GFR (Non-Af Amer) 88.0 BUN/Creatinine Ratio 23.9 H Glucose 89 Calcium 8.3 L Magnesium 2.1 Total Bilirubin AST ALT Alkaline Phosphatase Total Creatine Kinase Troponin I High Sens Total Protein Albumin Globulin Albumin/Globulin Ratio Vitamin B12 Folate TSH Urine Color Urine Appearance Urine pH Ur Specific [place] Urine Protein Urine Glucose (UA) Urine Ketones Urine Blood Urine Nitrite Urine Bilirubin Urine Urobilinogen Ur Leukocyte Esterase Carbamazepine SARS-CoV-2, RNA, NAAT NEGATIVE 05/13/22 05:51 WBC RBC Hgb Hct MCV MCH MCHC RDW Std Deviation RDW Coeff of Agustín Plt Count MPV Immature Gran % (Auto) Neut % (Auto) Lymph % (Auto) Daggett % (Auto) Eos % (Auto) Baso % (Auto) Neut # (Auto) Lymph # (Auto) [place] # (Auto) Eos # (Auto) Baso # (Auto) Immature Gran # (Auto) PT INR APTT PTT Ratio Sodium Potassium Chloride Carbon Dioxide Anion Gap BUN Creatinine Est Cr Clr Drug Dosing Est GFR ( Amer) Est GFR (Non-Af Amer) BUN/Creatinine Ratio Glucose Calcium Magnesium Total Bilirubin AST ALT Alkaline Phosphatase Total Creatine Kinase Troponin I High Sens Total Protein Albumin Globulin Albumin/Globulin Ratio Vitamin B12 194 Folate 8.97 TSH Urine Color Urine Appearance Urine pH Ur Specific [place] Urine Protein Urine Glucose (UA) Urine Ketones Urine Blood Urine Nitrite Urine Bilirubin Urine Urobilinogen Ur Leukocyte Esterase Carbamazepine SARS-CoV-2, RNA, NAAT PG Care Time/CCT Total # of Minutes Spent Total Time Spent with Patient: Total time spent is greater than 50% in coordination of care (as documented) at patient's floor/unit and/or counseling patient: Coding Level of Care Code 33357 Subseq Obs Care Lvl 2 Diagnoses Weakness R53.1 Peripheral neuropathy G62.9 Trigeminal neuralgia G50.0 Hypertension I10 S/P CABG (coronary artery bypass graft) Z95.1 Benign enlargement of prostate N40.0 DVT prophylaxis Z29.9 Dizziness R42
[2022-05-14] MEDS: ENOXAPARIN INJ 40 MG/0.4 ML SYR SQ SCH (05:43)
[2022-05-14 05:58] LABS: Basophils # (auto) 0.03 K/uL (0-0.2); Basophils % (auto) 0.4 %; Eosinophils # (auto) 0.33 K/uL (0-0.5); Eosinophils % (auto) 4.8 %; Hematocrit (blood only) 36.9 % (42-52); Hemoglobin 12.6 g/dL (14.0-18.0); Immature Granulocytes # (auto) 0.02 K/uL (0.00-0.02); Immature Granulocytes % (auto) 0.3 %; Lymphocytes # (auto) 1.82 K/uL (1.2-3.4); Lymphocytes % (auto) 26.5 %; Mean Corpuscular Hemoglobin 31.7 pg (25-34); Mean Corpuscular Hgb Conc 34.1 g/dL (32-36); Mean Corpuscular Volume 92.7 fL (80-100); Mean Platelet Volume 9.1 fL (7.4-10.4); Monocytes # (auto) 0.72 K/uL (0.11-0.59); Monocytes % (auto) 10.5 %; Neutrophils # (auto) 3.94 K/uL (1.4-6.5); Neutrophils % (auto) 57.5 %; Platelet Count 199 K/uL (130-400); RDW Coefficient of Variation 13.3 % (11.5-14.5); RDW Standard Deviation 45.4 fL (36.4-46.3); Red Blood Count 3.98 M/uL (4.7-6.1); White Blood Count 6.86 K/uL (4.8-10.8)
[2022-05-14 06:37] LABS: Albumin Globulin Ratio 1.5 (0.9-2); Albumin Level 3.4 gm/dl (3.4-5.0); Bilirubin,Total 0.4 mg/dl (0.2-1.0); Calcium 8.2 mg/dl (8.5-10.1); Creatinine Clr Calc Pharmacy 71.8 ml/min; Est GFR (African American) 95.6 ml/min; Est GFR (Non-African American) 82.5 ml/min; Globulin 2.3 gm/dl (2.5-4.0); Magnesium 2.1 mg/dl (1.7-2.4); Phosphorus 3.2 mg/dl (2.5-4.9); Total Protein 5.7 gm/dl (6.0-8.3)
[2022-05-14] MEDS: GABAPENTIN 300 MG CAP PO SCH ×2 (07:53→11:13)
[2022-05-14] MEDS: ACETAMINOPHEN 500 MG TAB PO SCH (08:46)
[2022-05-14] MEDS: carBAMazepine 200 MG TABLET PO SCH (08:47)
[2022-05-14] MEDS: METOPROLOL TARTRATE 25 MG TAB PO SCH (08:47)
[2022-05-14] MEDS: VALSARTAN 80 MG TAB PO SCH (08:48)
[2022-05-14] MEDS: ATORVASTATIN 40 MG TAB PO SCH (08:48)
[2022-05-14] MEDS: ASPIRIN 81 MG ECTAB PO SCH (08:48)
[2022-05-14] MEDS: CYANOCOBALAMIN 1000 MCG/ML VIAL IM SCH (08:48)
[2022-05-14] MEDS: TAMSULOSIN HCL 0.4 MG CAP PO SCH (08:49)
--- NOTE | 2022-05-14 09:46 | Electrocardiogram Report ---
Test Reason : Blood Pressure : / mmHG Vent. Rate : 067 BPM Atrial Rate : 067 BPM P-R Int : 226 ms QRS Dur : 094 ms QT Int : 412 ms P-R-T Axes : 045 -13 015 degrees QTc Int : 435 ms Sinus rhythm with 1st degree A-V block Otherwise normal ECG When compared with ECG of 17-APR-2022 08:26, CT interval has increased QT has shortened T wave inversion no longer evident in Anteroseptal leads Confirmed by Adelso Atkinson ([id number]) on 05/14/2022 9:45:53 AM Referred By: Confirmed By:Adelso Atkinson
--- NOTE | 2022-05-14 13:12 | Discharge Summary ---
Date of Service May 14, 2022 Admission HPI Per Admitting Provider 81yo M w/ hx of trigeminal neuralgia who presents with generalized weakness. The patient has had a rough year, and was hospitalized in November in [facility] with weakness and was eventually discharged home. He was then admitted in April for severe trigeminal neuralgia that caused him to lose quite a bit of weight. Today, he awoke in his normal state of health. He and his went to [place]. Sometime in jain or shortly after, the patient reports that he became dizzy. He is not a good historian and cannot tell me much about the dizziness other than it was present for at least a few minutes. He was able to get home in the car with his driving (which is typical). Later in the afternoon, his son came to drive him and his to [place] for an afternoon out. When he was going down the steps of their house, he cried out that he was feeling wobbly and that his feet were like "Jello." His son had to pull him back up the steps and onto the glider and they called 911. The patient reports that he is no longer dizzy at this time, but is not entirely sure when the dizziness resolved. Principal Diagnosis Dizziness-exact etiology not clear Discharge Exam Constitutional and general: No acute distress, looks biologic age Head and face: No puffiness, atraumatic Eyes: No scleral icterus, extraocular movements normal Neck: Supple, no JVD Musculoskeletal: No acute joint swelling, no bony abnormalities Skin/dermatologic/integument: No rash, no purpura Hematologic and lymphatic: pallor +, no petechia Gastrointestinal/abdomen: Nondistended, soft, nonacute Neurologic: Cranial nerves intact, nonfocal; particularly no lower extremity sensory or motor loss noted Psychiatry: Awake, alert, pleasant, communicative Cardiovascular: Heart rhythm regular, no rub, no murmur, no gallop Respiratory: Chest movements equal, no use of accessory muscles, no adventitious sounds Extremities: No edema, no cyanosis Discharge Data Allergies Allergy/AdvReac Type Severity Reaction Status Date / Time lisinopril AdvReac Mild Cough Verified 05/12/22 17:01 Consultations 05/12/22 18:11 ED Decision to Admit Stat Ordered Studies 05/12/22 14:43 CT head/brain wo con Stat Hospital Course (1) Weakness: Etiology not clear; B12 level low side, replace; at discharge 2000 mcg daily, consider repeat B12 level in about 4 to 6 weeks (2) Dizziness: Resolved; not orthostatic (3) Peripheral neuropathy: Replace B12, outpatient neurology follow-up (4) Trigeminal neuralgia: Home regimen (5) Hypertension: Acceptable, noted low-grade bradycardia, no change (6) S/P CABG (coronary artery bypass graft): CABG at [place] in 2006. - Continue home ASA, but reduce dose to 81 mg. No evidence to indicate 325 mg confers more protection, but does have additional GI risk. - Continue beta-ellyn, ARB, statin (7) Benign enlargement of prostate: No LUTS on exam today. - Continue home solifenacin and tamsulosin (8) B12 deficiency: possible; B12 level 194; empirically replaced can repeat level in 4-week versus further evaluation such as methylmalonic acid level He desires to go home. Total Time Total Time Spent Total Time Spent (In Minutes): 35 Discharge Plan Discharge Items Patient Disposition: Home - Self-Care Reason For Visit: WEAKNESS Discharge Diagnosis: Dizziness, etiology not clear Activity: As commented below Activity Comment: As tolerated Non-emergency contact: Primary Care Provider Call non-emergency contact if: your symptoms worsen Follow-up/Referrals: Gopal Newton MD [Physician] - (2 weeks if possible) Jimy Tobias DO [Primary Care Provider] - Diet: Heart Healthy Addtl Attending Provider Instructions: Follow-up with your PCP in 1 week Pending Studies at Discharge: No Stand-Alone Forms: My [facility] [employer], Smoking Cessation Medications and DC Order Prescriptions: New cyanocobalamin (vitamin B-12) 500 mcg Tablet 2,000 mcg PO QAM Qty: 120 RF: 0 Continued atorvastatin 40 mg tablet 40 mg PO DAILY Qty: 90 RF: 3 solifenacin [Vesicare] 5 mg tablet 5 mg PO DAILY Qty: 90 RF: 3 nitroglycerin 0.4 mg tablet, sublingual 0.4 mg SL Q5M PRN (Reason: chest pain) Qty: 25 RF: 3 tamsulosin 0.4 mg capsule 0.4 mg PO DAILY Qty: 90 RF: 3 aspirin 325 mg tablet,delayed release (DR/EC) 325 mg PO DAILY RF: 0 valsartan 80 mg tablet 80 mg PO DAILY Qty: 30 RF: 2 acetaminophen 325 mg Tablet 650 mg PO Q4H PRN (Reason: pain) Qty: 30 RF: 0 gabapentin 300 mg capsule See Rx Instructions .ROUTE .COMPLEX RF: 0 [id number] C-Mn [Glucosamine Chondroitin MaxStr] 500-400 mg Capsule 1 cap PO BID RF: 0 amoxicillin 500 mg capsule 2,000 mg PO DIRECTED PRN (Reason: Prophylaxis PRIOR TO DENTAL APPT.) RF: 0 carbamazepine 200 mg tablet 200 mg PO TID Qty: 0 RF: 0 metoprolol tartrate 50 mg tablet 25 mg PO BID Qty: 90 RF: 3 oxycodone 10 mg tablet 5 mg PO Q6H PRN (Reason: Pain) Qty: 0 RF: 0 Discharge Orders: Discharge Order (Routine); Ordered 05/14/22 Ordered By: Kiera Martin Admission Data Admit Date/Time: 05/12/22 19:29 Attending Provider: Kiera Martin Admit Provider: Cal Jaime Primary Care Provider: Jimy Tobias Other Providers: Cal Jaime Coding Level of Care Code 26250 OBS Care - Discharge Diagnoses Weakness R53.1 Dizziness R42 Peripheral neuropathy G62.9 Trigeminal neuralgia G50.0 Hypertension I10 S/P CABG (coronary artery bypass graft) Z95.1 Benign enlargement of prostate N40.0 B12 deficiency E53.8
[2022-05-15] MEDS ORDERED: CYANOCOBALAMIN (B-12) 500 MCG TABLET PO SCH (09:00)
== END 2022-05-14 13:58 | disposition home or self-care (01) ==
LOC: ED 13:29 → 3N 13:29 → SUATTDRO 19:29 → 3N 21:13

== ENCOUNTER 2025-03-28 15:41 | Observation (INO) ==
[2025-03-28 16:25] LABS: Basophils # (auto) 0.04 K/uL (0.00-0.20); Basophils % (auto) 0.6 %; Eosinophils # (auto) 0.38 K/uL (0.00-0.50); Eosinophils % (auto) 5.5 %; Hematocrit (blood only) 45.1 % (42.0-52.0); Hemoglobin 15.2 g/dl (14.0-18.0); Immature Granulocytes # (auto) 0.03 K/uL (0.01-0.20); Immature Granulocytes % (auto) 0.4 %; Lymphocytes # (auto) 1.48 K/uL (1.20-3.40); Lymphocytes % (auto) 21.3 %; Mean Corpuscular Hemoglobin 30.5 pg (25.0-34.0); Mean Corpuscular Hgb Conc 33.7 g/dL (32.0-36.0); Mean Corpuscular Volume 90.6 fL (80.0-100.0); Mean Platelet Volume 9.5 fL (9.4-12.4); Monocytes # (auto) 0.66 K/uL (0.11-0.59); Monocytes % (auto) 9.5 %; Neutrophils # (auto) 4.35 K/uL (1.40-6.50); Neutrophils % (auto) 62.7 %; Platelet Count 205 K/uL (130-400); RDW Coefficient of Variation 12.8 % (11.5-14.5); RDW Standard Deviation 42.2 fL (36.4-46.3); Red Blood Count 4.98 M/uL (4.70-6.10); White Blood Count 6.94 K/ul (4.8-10.8)
[2025-03-28 16:40] LABS: Partial Thromboplastin Time 26 Seconds (21-31); Prothrombin Time 11.1 Seconds (9.0-12.0)
[2025-03-28 16:47] LABS: Albumin Globulin Ratio 1.3 (0.9-2); Albumin Level 4.3 gm/dl (3.4-5.0); BUN Creatinine Ratio 29.6 (10-20); Bilirubin,Total 0.3 mg/dl (0.2-1.0); Calcium 9.5 mg/dl (8.6-10.3); Creatinine Clr Calc Pharmacy 73.4 ml/min; Globulin 3.3 gm/dl (2.5-4.0); Potassium 4.3 mmol/L (3.5-5.1); Total Protein 7.6 gm/dl (6.0-8.3)
[2025-03-28 16:53] LABS: Troponin I High Sensitivity 27.8 pg/ml (0-20)
--- NOTE | 2025-03-28 17:49 | XRay Report ---
INDICATION: Chest pain. TECHNIQUE: Frontal radiograph of the chest. COMPARISON: Radiograph from 10/05/2022. FINDINGS: Cardiomegaly. Mild pulmonary vascular congestion. No infiltrate, pleural effusion or pneumothorax. No acute osseous abnormality evident. IMPRESSION: Mild pulmonary vascular congestion. Electronically signed by Ashish Shay 03-28-2025 5:46 PM
[2025-03-28] MEDS: hydrALAZINE HCL 20 MG/ML VIAL IV STA (18:49)
[2025-03-28] MEDS: VALSARTAN 80 MG TAB PO STA (18:55)
[2025-03-28] MEDS: hydrALAZINE HCL 20 MG/ML VIAL IV ONE (19:22)
[2025-03-28] MEDS: ASPIRIN CHEW 324 MG PO STA (19:22)
--- NOTE | 2025-03-28 19:29 | Emergency Department Note ---
Impression & Plan Hypertension, Elevated troponin ED Provider Note CHIEF COMPLAINT: high blood pressure, dizzy HISTORY OF PRESENT ILLNESS: This 84-year-old male patient with past medical history of trigeminal neuralgia, MGUS, CAD status post CABG, prostatic hypertrophy, hypertension, esophagitis, presents emergency department with complaints of dizziness and high blood pressure while at physical therapy today. The patient states he was on the exercise bike and began to feel somewhat dizzy. He was able to finish the exercise and climbed off the bike without difficulty. He began the next exercise but needed to stop. He told the physical therapist he was not feeling well. They checked his blood pressure and noted to be markedly elevated. Patient was sent to his PCP for evaluation. He was directed to the emergency department after an urgent care clinic confirmed the hypertension. Any speech difficulty or visual changes. He denies any headache, chest pain and shortness of breath. He states he did take his medications this morning. REVIEW OF SYSTEMS: A review of systems was performed with positives and pertinent negatives listed in the history of present illness. 10 systems were reviewed and are otherwise negative. ALLERGIES: see below MEDICATIONS: see below PMH: see below SOCIAL HISTORY: see below DDx: Fluid overload, medication omission, hypertensive urgency, renal failure, infectious etiology, electrolyte abnormality among others. PHYSICAL EXAM: Vital signs reviewed. noted to be markedly hypertensive General: Chronically ill-appearing 84-year-old male, in no significant distress. HEENT: PERRLA, neck supple. moist mucous membranes. Left eye with some surrounding chronic appearing erythema and lid changes, no conjunctival injection. EOMI. Cardiovascular: Regular rate and rhythm, no extra sounds. Pulmonary: Clear to auscultation bilaterally, normal work of breathing. Abdomen: Soft, nontender, nondistended, positive bowel sounds. Musculoskeletal: Atraumatic, no peripheral edema. Neurologic: Patient awake alert and oriented x 3, speech is clear Skin: Warm, dry, no rash EMERGENCY DEPARTMENT COURSE/MDM: This patient was evaluated and appeared to be in no significant distress. IV access was obtained and laboratory work was drawn. Chest x-ray was performed and reveals pulmonary vascular congestion without evidence of focal lung consolidation. Patient is noted to be to first- degree AV block sinus rhythm on the surveillance monitor. EKG reveals no evidence of acute ischemia, incomplete right bundle branch block is noted. Laboratory work reveals a slightly elevated high-sensitivity troponin and on repeat it is trending upward. Blood pressure is noted to be markedly elevated. He was given his home dose of valsartan 80 mg and shortly there later given 5 mg of IV hydralazine. Given the marked hypertension and uptrending high-sensitivity troponin, was felt to be in the patient's best interest for admission. Case was discussed with Dr. Cuadra of the hospitalist service to evaluate the patient. Patient and have expressed understanding of the plan and agreed. MONITORING: An order for cardiac monitoring was placed and the patient is noted to be in a sinus rhythm with a first-degree AV block at 63 beats per minute. RADIOLOGY: chest x-ray to my interpretation reveals pulmonary vascular congestion, no focal lung consolidation EKG: to my interpretation reveals a sinus rhythm with a first-degree AV block at 77 bpm. Incomplete right bundle branch block. QTc of 454. No PVC, no PAC. DISPOSITION: Admission Past Med/Surg History Problem List Hypertensive urgency Elevated troponin (Acute) Rigidity Bradykinesia Leg swelling Drooling Buttock wound MGUS (monoclonal gammopathy of unknown significance) (Chronic) Seen by Hematology in the past Peripheral neuropathy Trigeminal neuralgia (Chronic) takes Tegretol 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 with W[place]ER [place] [facility] [place] follows w/ Dr Pardo ? last visit ? 2021 Urinary incontinence Carotid atherosclerosis Mild mitral regurgitation Benign localized prostatic hyperplasia with lower urinary tract symptoms (LUTS) (Chronic) Frequent falls (Acute) Hypertension (Acute) Gait instability (Chronic) Anemia (Chronic) Esophagitis (Acute) Encounter for pre-operative examination Esophageal dysphagia Urinary symptom or sign Fatigue Right foot pain Medical History Poor historian History of COVID-19 10/2020 Dizziness Weakness Carpal tunnel syndrome on both sides Rosacea HTN (hypertension) Dyslipidemia CAD (coronary artery disease) Back pain Surgical History History of colonoscopy History of esophagogastroduodenoscopy (EGD) History of bilateral knee replacement History of ankle surgery ORIF LEFT ANKLE S/P inguinal hernia repair S/P tonsillectomy History of carpal tunnel release of both wrists Family History Mother Diabetes Heart disease Hypertension Brother Parkinson disease Father Heart disease Other No family history of adverse response to anesthesia Social History Smoking Status: Never smoker Second Hand Exposure: No; Do You Dip or Chew Tobacco: No; Hx Alcohol Use: No Hx Substance Use: No Preferred Language: Thai Communication Ability: Effective Visual Impairment: No Limitations Hearing Ability: Normal Paint Spray Inspector Required: No Beliefs That Will Affect Care: None marital status: Current Living Situation: Spouse Current Living Situation Comment: Daughter, current occupational status: retired 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 Feels Safe at Home: Yes Diet: regular caffeine: Yes Dental Care, Regularly: Yes Physical Activity Frequency: Does not Exercise Seatbelt Use: always Sunscreen Use: Yes Assistive Devices: Walker Allergies Allergies Allergy/AdvReac Type Severity Reaction Status Date / Time lisinopril AdvReac Mild Cough Verified 03/28/25 17:23 Home Meds Home Medications Medication Instructions Recorded Confirmed aspirin 81 mg tablet,delayed 81 mg PO QAM 09/26/22 03/28/25 release carbamazepine 200 mg tablet 200 mg PO QID 03/28/25 03/28/25 valsartan 80 mg tablet 80 mg PO QAM 03/28/25 03/28/25 Previous Rx's Medication Instructions Recorded nitroglycerin 0.4 mg sublingual 0.4 mg sublingual Q5M PRN chest 02/03/24 tablet pain #25 tabs tamsulosin 0.4 mg capsule 0.4 mg PO DAILY #90 caps 05/31/24 solifenacin 5 mg tablet (Vesicare) 5 mg PO DAILY #90 tabs 12/01/24 atorvastatin 40 mg tablet 40 mg PO DAILY #90 tabs 03/22/25 hydrochlorothiazide 12.5 mg tablet 12.5 mg PO DAILY #30 tabs 03/30/25 metoprolol succinate 25 mg 12.5 mg (1/2 x 25 mg) PO HS #0 tabs 03/30/25 tablet,extended release 24 hr Results & Data (ED) Vital Signs Vital Signs - 24 hr 03/28/25 15:51 03/28/25 16:15 03/28/25 16:16 Temperature 36.4 C L Temperature Source Oral Pulse Rate 73 71 Pulse Rate [Apical] 67 Pulse Rate from SpO2 Sensor 71 Pulse Rhythm [Apical] Pulse Strength [Apical] Respiratory Rate 16 22 20 Respiratory Effort / Characteristics Non-Labored Spontaneous Non-Labored Spontaneous Respiratory Depth Normal Normal Respiratory Pattern Regular Regular Blood Pressure 224/121 H 195/95 H Blood Pressure [Right Arm] 195/95 H Blood Pressure Mean 155 128 Blood Pressure Mean [Right Arm] 128 Blood Pressure Position [Right Arm] Pulse Oximetry 98 97 97 Oxygen Delivery Method Room Air Room Air Sepsis Recent Fever Within 48 Hours No Sepsis New/Unexplained Change in Mental Status No Sepsis Action Taken by Nursing No Action Required 03/28/25 16:22 03/28/25 16:30 03/28/25 16:30 Temperature Temperature Source Pulse Rate 70 51 L Pulse Rate [Apical] 64 Pulse Rate from SpO2 Sensor 51 L Pulse Rhythm [Apical] Pulse Strength [Apical] Respiratory Rate 18 20 Respiratory Effort / Characteristics Respiratory Depth Respiratory Pattern Blood Pressure 178/84 H Blood Pressure [Right Arm] 178/84 H Blood Pressure Mean 115 Blood Pressure Mean [Right Arm] 115 Blood Pressure Position [Right Arm] Pulse Oximetry 96 97 Oxygen Delivery Method Room Air Sepsis Recent Fever Within 48 Hours Sepsis New/Unexplained Change in Mental Status Sepsis Action Taken by Nursing 03/28/25 17:00 03/28/25 19:28 03/28/25 20:01 Temperature Temperature Source Pulse Rate 63 75 Pulse Rate [Apical] 53 L Pulse Rate from SpO2 Sensor Pulse Rhythm [Apical] Regular Pulse Strength [Apical] Normal Respiratory Rate 17 Respiratory Effort / Characteristics Non-Labored Respiratory Depth Normal Respiratory Pattern Regular Blood Pressure 179/100 H Blood Pressure [Right Arm] 196/87 H Blood Pressure Mean 108 Blood Pressure Mean [Right Arm] 123 Blood Pressure Position [Right Arm] Lying Pulse Oximetry 96 95 Oxygen Delivery Method Room Air Sepsis Recent Fever Within 48 Hours Sepsis New/Unexplained Change in Mental Status Sepsis Action Taken by Nursing 03/28/25 21:02 Temperature Temperature Source Pulse Rate Pulse Rate [Apical] 53 L Pulse Rate from SpO2 Sensor Pulse Rhythm [Apical] Regular Pulse Strength [Apical] Normal Respiratory Rate Respiratory Effort / Characteristics Respiratory Depth Respiratory Pattern Blood Pressure Blood Pressure [Right Arm] 190/87 H Blood Pressure Mean Blood Pressure Mean [Right Arm] 121 Blood Pressure Position [Right Arm] Lying Pulse Oximetry 97 Oxygen Delivery Method Room Air Sepsis Recent Fever Within 48 Hours Sepsis New/Unexplained Change in Mental Status Sepsis Action Taken by [facility] Medications Current Medication List: was personally reviewed by me Laboratory Data Attestation: I reviewed the patient's lab results. 03/30/25 05:35 03/30/25 05:35 Lab Results 03/28/25 03/28/25 Range/Units 15:48 18:14 WBC 6.94 (4.8-10.8) K/ul RBC 4.98 (4.70-6.10) M/uL Hgb 15.2 (14.0-18.0) g/dl Hct 45.1 (42.0-52.0) % MCV 90.6 (80.0-100.0) fL MCH 30.5 (25.0-34.0) pg MCHC 33.7 (32.0-36.0) g/dL RDW Std Deviation 42.2 (36.4-46.3) fL RDW Coeff of Agustín 12.8 (11.5-14.5) % Plt Count 205 (130-400) K/uL MPV 9.5 (9.4-12.4) fL Immature Gran % (Auto) 0.4 % Neut % (Auto) 62.7 % Lymph % (Auto) 21.3 % [place] % (Auto) 9.5 % Eos % (Auto) 5.5 % Baso % (Auto) 0.6 % Neut # (Auto) 4.35 (1.40-6.50) K/uL Lymph # (Auto) 1.48 (1.20-3.40) K/uL [place] # (Auto) 0.66 H (0.11-0.59) K/uL Eos # (Auto) 0.38 (0.00-0.50) K/uL Baso # (Auto) 0.04 (0.00-0.20) K/uL Immature Gran # (Auto) 0.03 (0.01-0.20) K/uL PT 11.1 (9.0-12.0) Seconds INR 1.0 (0.9-1.1) APTT 26 (21-31) Seconds PTT Ratio 1.0 Sodium 141 (136-145) mmol/L Potassium 4.3 (3.5-5.1) mmol/L Chloride 105 (98-107) mmol/L Carbon Dioxide 31 (21-32) mmol/L Anion Gap 5 (3-11) BUN 24 H (6-23) mg/dl Creatinine 0.81 (0.6-1.4) mg/dl Est Cr Clr Drug Dosing 73.4 ml/min eGFR 86.94 BUN/Creatinine Ratio 29.6 H (10-20) Glucose 98 (70-99(Fasting)) mg/dl Calcium 9.5 (8.6-10.3) mg/dl Total Bilirubin 0.3 (0.2-1.0) mg/dl AST 17 (13-39) U/L ALT 15 (7-52) U/L Alkaline Phosphatase 81 (34-104) U/L Troponin I High Sens 27.8 H 45.0 H D (0-20) pg/ml B-Natriuretic Peptide 367 H (0-100) pg/ml Total Protein 7.6 (6.0-8.3) gm/dl Albumin 4.3 (3.4-5.0) gm/dl Globulin 3.3 (2.5-4.0) gm/dl Albumin/Globulin Ratio 1.3 (0.9-2) Administered Medications Discontinued Medications Acetaminophen (Acetaminophen 325 Mg Tab) 650 mg PO NOW STA Stop: 03/28/25 21:53 Last Admin: 03/28/25 22:01 Dose: Not Given Documented By: LEONELA Aspirin (Aspirin Chew 324 Mg) 324 mg PO NOW STA Stop: 03/28/25 19:12 Last Admin: 03/28/25 19:22 Dose: 324 mg Documented By: LEONELA Aspirin (Aspirin 81 Mg Ectab) 81 mg PO [facility] Stop: 04/28/25 08:59 Last Admin: 03/30/25 08:16 Dose: 81 mg Documented By: Admin: 03/29/25 08:30 Dose: 81 mg Documented By: SOFIA Atorvastatin Calcium (Atorvastatin 40 Mg Tab) 40 mg PO DAILY [facility] Stop: 04/28/25 08:59 Last Admin: 03/30/25 08:16 Dose: 40 mg Documented By: Admin: 03/29/25 08:30 Dose: 40 mg Documented By: SOFIA Carbamazepine (Carbamazepine 200 Mg Tablet) 200 mg PO NOW STA Stop: 03/28/25 19:47 Last Admin: 03/28/25 20:14 Dose: 200 mg Documented By: LEONELA Carbamazepine (Carbamazepine 200 Mg Tablet) 200 mg PO QID [facility] Stop: 04/28/25 02:11 Last Admin: 03/30/25 08:16 Dose: 200 mg Documented By: Admin: 03/29/25 20:40 Dose: 200 mg Documented By: Admin: 03/29/25 17:55 Dose: 200 mg Documented By: Admin: 03/29/25 12:25 Dose: 200 mg Documented By: Admin: 03/29/25 08:30 Dose: 200 mg Documented By: Admin: 03/29/25 03:17 Dose: 200 mg Documented By: RENE Hydralazine HCl (Hydralazine Hcl 20 Mg/Ml Vial) 10 mg IV NOW STA Stop: 03/28/25 18:30 Last Admin: 03/28/25 18:49 Dose: Not Given Documented By: LEONELA Hydralazine HCl (Hydralazine Hcl 20 Mg/Ml Vial) 5 mg IV NOW ONE Stop: 03/28/25 19:12 Last Admin: 03/28/25 19:22 Dose: 5 mg Documented By: LEONELA Hydromorphone HCl (Hydromorphone Inj 0.5 Mg/0.5 Ml Syr) 0.5 mg IV NOW STA Stop: 03/28/25 20:41 Last Admin: 03/28/25 20:42 Dose: Not Given Documented By: LEONELA Sodium Chloride (Nss) 1,000 mls @ 999 mls/hr IV .Q1H1M ONE Stop: 03/28/25 21:40 Last Admin: 03/28/25 20:42 Dose: Not Given Documented By: LEONELA Metoprolol Succinate (Metoprolol Succ 25mg Ext Rel Tab) 25 mg PO ONE ONE Stop: 03/28/25 21:01 Last Admin: 03/28/25 20:49 Dose: 25 mg Documented By: LEONELA Metoprolol Succinate (Metoprolol Succ 25mg Ext Rel Tab) 25 mg PO HS GOLD Stop: 04/28/25 20:59 Last Admin: 03/29/25 20:40 Dose: 25 mg Documented By: HUNG Oxybutynin Chloride (Oxybutynin Chloride Xl 5 Mg Tabcr) 5 mg PO DAILY [facility] Stop: 04/28/25 08:59 Last Admin: 03/30/25 08:16 Dose: 5 mg Documented By: Admin: 03/29/25 08:30 Dose: 5 mg Documented By: SOFIA Tamsulosin HCl (Tamsulosin Hcl 0.4 Mg Cap) 0.4 mg PO DAILY G[facility] Stop: 04/28/25 08:59 Last Admin: 03/30/25 08:16 Dose: 0.4 mg Documented By: Admin: 03/29/25 08:30 Dose: 0.4 mg Documented By: ERROLK Valsartan (Valsartan 80 Mg Tab) 80 mg PO NOW STA Stop: 03/28/25 18:32 Last Admin: 03/28/25 18:55 Dose: 80 mg Documented By: LEONELA Valsartan (Valsartan 80 Mg Tab) 80 mg PO QAM GOLD Stop: 04/28/25 08:59 Last Admin: 03/30/25 08:17 Dose: 80 mg Documented By: Admin: 03/29/25 08:30 Dose: 80 mg Documented By: ERROLK Imaging Data Radiologist's Impression: Chest X-Ray 03/28/25 17:01 INDICATION: Chest pain. TECHNIQUE: Frontal radiograph of the chest. COMPARISON: Radiograph from 10/05/2022. FINDINGS: Cardiomegaly. Mild pulmonary vascular congestion. No infiltrate, pleural effusion or pneumothorax. No acute osseous abnormality evident. IMPRESSION: Mild pulmonary vascular congestion. Electronically signed by Ashish Shay 03-28-2025 5:46 PM Discharge Plan Visit Data Chief Complaint: Hypertension Stated Complaint: HTN ED Provider: Irma Baeza Discharge Problem: Hypertension, Elevated troponin Patient Disposition: Admitted As Inpatient Condition: Fair Discharge Instructions Interventions: ED Discharge Assessment Last Done: 03/29/25 02:12 Discharge Problem: Hypertension Qualifiers: Hypertension type: primary hypertension Qualified Code(s): I10 - Essential (primary) hypertension
--- NOTE | 2025-03-28 19:37 | History & Physical Report ---
Date of Service March 28, 2025 Assessment & Plan (1) Hypertensive urgency: (2) Trigeminal neuralgia: (3) S/P CABG (coronary artery bypass graft): Plan 84 year old presents to the ER with asymptomatic hypertensive urgency with mildly elevated troponin #Hypertensive urgency Increased troponin suspect related to this but asymptomatic, continue to repeat troponins overnight - not suspicious of ACS with lack of EKG changes or symptoms but if significantly increases may consider IV anti-hypertensives to bring BP under control quicker with the diagnosis of hypertensive emergency Possible cause was recent switch from Entresto to valsartan however reportedly B P previously controlled on current dose prior to recent switch to Entresto, alternatively he may not be taking the medication correctly as he appears mildly confused about some of his medications, alternatively increase BP secondary to pain from his trigeminal neuralgia which has recently been worse than usual Plan to continue usual metoprolol and valsartan, if needing something extra consider low dose diuretics to help with pulmonary edema with history of diastolic heart failure #Trigeminal neuralgia Continue carbamazepine 200mg PO QID #BPH / urinary incontinence Continue tamsulosin and solifenacin VTE Prophylaxis - low risk Diet - low Na, heart healthy Disposition - observation to med/tele Admission and Anticipated Discharge Date Admission Date: March 28, 2025 History of Present Illness Chief Complaint: Hypertension Primary Care Provider: DO Harry Quigley is an 84 year old male who presents to the ER with high blood pressure on advice of his physical therapist due to elevated blood pressure. He denies any acute symptoms but does not his trigeminal neuralgia has been worse this last week but otherwise feels at his baseline. He had switched from valsartan to Entresto but this proved too expensive and he switched back to valsartan about a month ago. He is unable to remember atorvastatin when going through his medications but reports he takes everything as prescribed although he does his medications on a daily basis without help of a pill pack. His trigeminal neuralgia has been worse for the last week and is still having this but more mild than last week. Allergies Allergy/AdvReac Type Severity Reaction Status Date / Time lisinopril AdvReac Mild Cough Verified 03/28/25 17:23 Home Medications Medication Instructions Recorded Confirmed Type aspirin 81 mg tablet,delayed 81 mg PO QAM 09/26/22 03/28/25 History release metoprolol succinate 25 mg 25 mg PO HS 01/26/24 03/28/25 History tablet,extended release 24 hr nitroglycerin 0.4 mg sublingual 0.4 mg sublingual Q5M PRN chest 02/03/24 03/28/25 Rx tablet pain #25 tabs tamsulosin 0.4 mg capsule 0.4 mg PO DAILY #90 caps 05/31/24 03/28/25 Rx solifenacin 5 mg tablet (Vesicare) 5 mg PO DAILY #90 tabs 12/01/24 03/28/25 Rx atorvastatin 40 mg tablet 40 mg PO DAILY #90 tabs 03/22/25 03/28/25 Rx carbamazepine 200 mg tablet 200 mg PO QID 03/28/25 03/28/25 History valsartan 80 mg tablet 80 mg PO QAM 03/28/25 03/28/25 History Past Med/Surg History Problem List (Updated 03/29/25 @ 04:50 by Taiwo Cuadra MD) Hypertensive urgency Elevated troponin (Acute) Rigidity Bradykinesia Leg swelling Drooling Buttock wound MGUS (monoclonal gammopathy of unknown significance) (Chronic) Seen by Hematology in the past Peripheral neuropathy Trigeminal neuralgia (Chronic) takes Tegretol 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 with WALLER graft 2006 [place] [facility] [place] w/ Dr Pardo ? last visit ? 2021 Urinary incontinence Carotid atherosclerosis Mild mitral regurgitation Benign localized prostatic hyperplasia with lower urinary tract symptoms (LUTS) (Chronic) Frequent falls (Acute) Hypertension (Acute) Gait instability (Chronic) Anemia (Chronic) Esophagitis (Acute) Encounter for pre-operative examination Esophageal dysphagia Urinary symptom or sign Fatigue Right foot pain Medical History Poor historian History of COVID-19 10/2020 Dizziness Weakness Carpal tunnel syndrome on both sides Rosacea HTN (hypertension) Dyslipidemia CAD (coronary artery disease) Back pain Surgical History History of colonoscopy History of esophagogastroduodenoscopy (EGD) History of bilateral knee replacement History of ankle surgery ORIF LEFT ANKLE S/P inguinal hernia repair S/P tonsillectomy History of carpal tunnel release of both wrists Family History Mother Diabetes Heart disease Hypertension Brother Parkinson disease Father Heart disease Other No family history of adverse response to anesthesia Social History Smoking Status: Never smoker Second Hand Exposure: No; Do You Dip or Chew Tobacco: No; Hx Alcohol Use: No Hx Substance Use: No Preferred Language: [place] Communication Ability: Effective Visual Impairment: No Limitations Hearing Ability: Normal Roller Stitcher Required: No Beliefs That Will Affect Care: None marital status: Current Living Situation: Spouse Current Living Situation Comment: Daughter, current occupational status: retired 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 Other Information That Helps Us Care for You: No Feels Safe at Home: Yes Safety Concerns: Feels Safe At This Time Diet: regular caffeine: Yes Dental Care, Regularly: Yes Physical Activity Frequency: Does not Exercise Seatbelt Use: always Sunscreen Use: Yes Assistive Devices: Walker Review of Systems Review of Systems: All systems reviewed & are unremarkable except as noted in HPI & below Physical Exam Constitutional: WD/WN, vitals as above ENMT: external ear and nose normal, oropharynx normal Respiratory: normal respiratory effort, lungs clear to auscultation Cardiovascular: RRR, no murmur, no edema Gastrointestinal (Abdomen): normal bowel sounds, soft, nontender, no hepatosplenomegaly Skin: no rashes, warm and dry Neurologic: moves all extremities and awake; not confused Psychiatric: A+Ox3, euthymic affect Results & Data Results & Data Vital Signs (Past 12 Hours) Vital Signs Temp Pulse Pulse Resp BP BP Pulse Ox 03/28/25 17:00 63 17 179/100 H 96 03/28/25 16:30 51 L 20 178/84 H 97 03/28/25 16:30 64 18 178/84 H 96 03/28/25 16:22 70 03/28/25 16:16 67 20 195/95 H 97 03/28/25 16:15 71 22 195/95 H 97 03/28/25 15:51 36.4 C L 73 16 224/121 H 98 O2 Del Method 03/28/25 17:00 03/28/25 16:30 03/28/25 16:30 Room Air 03/28/25 16:22 05/19/25 16:16 Room Air 03/28/25 16:15 03/28/25 15:51 Room Air Laboratory Results Abnormal lab results 03/28/25 03/28/25 Range/Units 15:48 18:14 [place] # (Auto) 0.66 H (0.11-0.59) K/uL BUN 24 H (6-23) mg/dl BUN/Creatinine Ratio 29.6 H (10-20) Troponin I High Sens 27.8 H 45.0 H D (0-20) pg/ml B-Natriuretic Peptide 367 H (0-100) pg/ml Diagnostic Findings CXR Indication: Chest pain. TECHNIQUE: Frontal radiograph of the chest. COMPARISON: Radiograph from 10/05/2022. FINDINGS: Cardiomegaly. Mild pulmonary vascular congestion. No infiltrate, pleural effusion or pneumothorax. No acute osseous abnormality evident. IMPRESSION: Mild pulmonary vascular congestion. Medications Administered ER Medications Given: Hydralazine 10mg IV Valsartan 80mg PO Hydralazine 5mg IV Aspirin 324mg PO ECG Rate (beats per minute): 77 Rhythm: normal sinus Findings: no acute ischemic change Comparison ECG Date: from (October 05, 2022) Change: no significant change Code Status & VTE Plan Code Status Full VTE Prophylaxis Plan VTE Prophylaxis will be ordered: No PG Care Time/CCT Total # of Minutes Spent Total Time Spent with Patient: Total time spent is greater than 50% in coordination of care (as documented) at patient's floor/unit and/or counseling patient: Coding Level of Care Code 06967 INT INP/OBS CARE 3/75MIN Diagnoses Hypertensive urgency I16.0 Trigeminal neuralgia G50.0 S/P CABG (coronary artery bypass graft) Z95.1
[2025-03-28] MEDS: carBAMazepine 200 MG TABLET PO STA (20:14)
[2025-03-28] MEDS: SODIUM CHLORIDE 0.9% 1,000 ML IV ONE (20:42)
[2025-03-28] MEDS: HYDROmorphone INJ 0.5 MG/0.5 ML SYR IV STA (20:42)
[2025-03-28] MEDS: METOPROLOL SUCC 25MG EXT REL TAB PO ONE (20:49)
[2025-03-28] MEDS: ACETAMINOPHEN 325 MG TAB PO STA (22:01)
[2025-03-29] MEDS ORDERED: NITROGLYCERIN SL 0.4 MG/TAB TAB SL PRN (02:12)
[2025-03-29] MEDS ORDERED: ACETAMINOPHEN 325 MG TAB PO PRN (02:12)
[2025-03-29] MEDS ORDERED: ONDANSETRON INJ 2 MG/ML 2 ML VIAL IV PRN (02:12)
[2025-03-29] MEDS: carBAMazepine 200 MG TABLET PO SCH (03:17)
--- OUTSIDE RECORDS SUMMARY | 2025-03-29 05:44 | External Medical Summary | Summary of Care ---
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 Active Tamsulosin HCl 0.4 MG Oral Capsule (Flomax) 1 Active Solifenacin Succinate 5 MG Oral Tablet (VESIcare) Take 1 Tablet by mouth in the morning. 1 Active carBAMazepine 200 MG Oral Tablet (Tegretol) 3 times a day. 3 Active Valsartan 80 MG Oral Tablet (Diovan) Take 1 Tablet by mouth in the morning. 3 Active Benzonatate 100 MG Oral CapsuleIndicati ons:Acute cough Take 1 Capsule by mouth 3 times a day as needed for Cough. 30 Capsule 1 3 Active Additional Information Patient not taking.Reported on 01/20/2025 Timolol Maleate (Once-Daily) 0.5 % Ophthalmic Solution (Istalol) Instill 1 Drop into both eyes in the morning and 1 Drop before bedtime. 3 Active Metoprolol Succinate ER 25 MG Oral Tablet Extended Release 24 Hour (toPROL XL) Take 1 Tablet by mouth in the morning. 4 Active Sacubitril-Vals aixa 24-26 MG Oral Tablet (Entresto) Take 1 Tablet by mouth once. 5 Active Fluticasone Propionate 50 MCG/ACT Nasal Suspension (Flonase)Indica tions:Viral URI with cough Administer 2 Sprays into each nostril in the morning and 2 Sprays before bedtime. 1 Each 5 Active documented as of this encounter (statuses as of 03/21/2025) Active Problems Problem Noted Date Diagnosed Date Coronary artery disease invo lving [place] coronary artery of [place] heart without angina pectoris 03/13/2018 HTN, goal below 140/90 03/13/2018 Dyslipidemia 03/13/2018 MGUS (monoclonal gammopathy of unknown significa nce) 03/13/2018 Status post total bilateral knee replacement 02/2018 Chronic otitis externa 07/20/2008 Sensorineural hearing loss, bilateral 10/19/2007 S/P CABG x 2 06/10/2007 documented as of this encounter (statuses as of 03/21/2025) Resolved Problems Problem Noted Date Diagnosed Date Resolved Date Impacted cerumen 09/11/2016 documented as of this encounter (statuses as of 03/21/2025) Immunizations Name Administration Dates Next Due COVID-19 mRNA, LNP-s, No Pre serve, 2-Dose Series (Moderna) 01/08/2021,12/03/2020 Seasonal Influenza, Quadrivalent Hd (Fluzone Hd) 07/28/2021 documented as of this encounter Social History Tobacco Use Types Packs/Day Years Used Date Smoking Tobacco: Never Smokeless Tobacco: Never Alcohol Use Standard Drinks/Week Comments Yes 0 (1 standard drink = 0.6 oz pur e alcohol) occasionally Sex and Gender Information Value Date Recorded Sex Assigned at Not on file Legal Sex Male 5:59 AM EST Gender Identity Not on file Sexual Orientation Not on file documented as of this encounter Progress Notes * Jusitn Tran, - 03/21/2025 10:42 AM EDT Harry Gtz is a 84 year old male who returns for followup. Vision is stable. Uses timolol dailywith no reported issues. Ophthalmology Past History: glasses, tear duct procedures, CE OU Ophthalmology Family History: none Ophthalmology ROS: no recent significant change in vision,no eye pain, redness, discharge,no diplopia Current Ophthalmic Medications: timolol right eye AM and Tears HS EXAM: Base Eye Exam Visual Acuity (Snellen - Linear) Right Left Dist cc 20/30 20/30 +1 Correction: Glasses Tonometry (Tonopen, 10:48 AM) Right Left Pressure 15 11 Neuro/Psych Oriented x3: Yes Mood/Affect: Normal Slit Lamp and Fundus Exam External Exam Right Left External Rosacea scale Rosacea scale Slit Lamp Exam Right Left Lids/Lashes lid laxity, 2+ Meibomian gland dysfunction, trace blepharitis, ptosis MRD #1 2mm lid laxity, 2+ Meibomian gland dysfunction, 1+ blepharitis, ptosis MRD #1 1mm Conjunctiva/Sclera White and quiet White and quiet Cornea Clear Clear Anterior Chamber Deep and quiet Deep and quiet Iris Round and reactive Round and reactive Lens PC IOL PC IOL Office Procedure Note: Name: Harry Gtz MRD: [id number] DATE: 03/21/2025 PREOP DX: EPIPHORA left eye POSTOP DX: SAME Procedure: Punctal dilation with irrigation left eye lower lid TECHNIQUE: After informed consent was obtained from the patient. Alcaine was instilled in the left eye and a lacrimal cannula was placed and the cannilicular system was irrigated with EYE STREAM. No regurge was identified and the system allowed free flow of irrigation fluid. The patient tolerated the procedure well without complication. IMPRESSION: 1. Rosacea stable 2. Blepharitis OS>OD PLAN: 1. Reassurance lid hyigene daily 2. Lipid tears QID continue timolol QAM 3. 6 months return I spent a total of 10-19 minutes (exact time 10 mins) on the date of service in preparation, delivery, and documentation of the care provided to Harry Gtz excluding any time spent in the performance of separately billed services or time spent by another provider/QHP. Justin Tran DO documented in this encounter Nursing Notes * Briana Chavez LPN - 03/21/2025 10:42 AM EDT Harry Gtz is a 84 year old male who presents for follow up. Patient reports tearing OS>OD Last Visit: Visit date not found (in office), Visit date not found (telemedicine) He currently states no change in vision. Are you diabetic? No Current Ophthalmic Medications: Timolol 1 gtt both eyes daily States he was given another drop for HS but unable to recall name of drop (possibly Systane) VA, IOP, current eyeglass Rx, and pupil check and dilation if needed can be found in ophth exam. documented in this encounter Plan of Treatment Upcoming Encounters Date Type Department Care Team (Late st Contact Info) Description 05/17/2025 9:30 AM EDT Office Visit Otolaryngology [facility] [address] [place] [phone] Fatmata Navarrete PA-C [address] [place] [address] 08/17/2025 11:30 AM EDT Office Visit Otolaryngology [facility] [address] [place] [phone] Fatmata Navarrete PA-C [address] [place] [address] 10/10/2025 9:40 AM EST Office Visit Ophthalmology, [facility] [address] [place] [phone] Justin Tran, DO [address] [place] [address] Health Maintenance Due Date Last Done Comments EKG 1940 Depression Screening 1952 Albumin/Creatinine Ratio 1958 DTap/Tdap Vaccines (1 - Tdap) 1959 Zoster Vaccines (3 of 3) 10/23/2021 08/28/2021, 02/2014 GFR 09/18/2022 09/18/2021, 06/10, 01/10/2021, Additional history exists COVID-19 Vaccine ( season) 2024 08/20/2022, 01/08/2021, 12/03/2020 Influenza Vaccine (FLU shot) (Season Ended) 2025 07/28/2021, 07/28/2020, 08/06/2019 Pneumococcal Vaccine: 50+ Years Completed 07/11/2019, 09/22/2007 HPV (Gardasil) Vaccine Aged Out No lo nger eligible based on patient's age to complete this topic Hepatitis B Vaccine Aged Out No longe r eligible based on patient's age to complete this topic MENINGOCOCCAL (MENACTRA/MENVEO) Aged Out No longer eligible based on patient's age to complete this topic Meningitis B Vaccine (Bexsero/Trumemba) Aged Out No longer eligible based on patient's age to complete this topic documented as of this encounter Medical Devices Not on filedocumented as of this encounter Visit Diagnoses Diagnosis 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
[2025-03-29 07:31] LABS: Albumin Globulin Ratio 1.6 (0.9-2); Albumin Level 3.9 gm/dl (3.4-5.0); Bilirubin,Total 0.7 mg/dl (0.2-1.0); Calcium 8.8 mg/dl (8.6-10.3); Creatinine Clr Calc Pharmacy 80.3 ml/min; Globulin 2.5 gm/dl (2.5-4.0); Total Protein 6.4 gm/dl (6.0-8.3)
[2025-03-29] MEDS: OXYBUTYNIN CHLORIDE XL 5 MG TABCR PO SCH (08:30)
[2025-03-29] MEDS: TAMSULOSIN HCL 0.4 MG CAP PO SCH (08:30)
[2025-03-29] MEDS: ATORVASTATIN 40 MG TAB PO SCH (08:30)
[2025-03-29] MEDS: ASPIRIN 81 MG ECTAB PO SCH (08:30)
[2025-03-29] MEDS: VALSARTAN 80 MG TAB PO SCH (08:30)
--- OUTSIDE RECORDS SUMMARY | 2025-03-29 08:32 | External Medical Summary | Summary of Care ---
Author Name Unknown Organization [facility] Address [address] [facility] [place] [address] Phone [phone] Care Team Providers Care Tumbler Machine Operator Name Role Phone Jay Jay Shin Primary Care Provider + Reason for Visit * Reason Comments Dizziness Blood Pressure Check Encounter Details Date Type Department Care Team (Latest Contact Info) Description 03/28/2025 1:45 PM EDT Convenient Care Visit [facility] [address] [place] [phone] Cintia King CRNP [address] [facility] [place] [id number] Lightheadedness*; HTN, goal below 140/90; Bradycardia; First degree AV block Allergies Active Allergy Reactions Criticality Noted Date Comments Lisinopril Cough 04/11/2021 documented as of this encounter (statuses as of 03/29/2025) Medications ATORVASTATIN CALCIUM 40 MG PO TABS Take by mouth. 3 5 Active NITROSTAT 0.4 MG SUBL [...] Active carBAMazepine 200 MG Oral Tablet (Tegretol) in the morning and at noon and before bedtime. 3 Active Valsartan 80 MG Oral Tablet (Diovan) Take 1 Tablet by mouth in the morning. 3 Active Benzonatate 100 MG Oral CapsuleIndicati ons:Acute cough Take 1 Capsule by mouth 3 times a day as needed for Cough. 30 Capsule 1 3 Active Additional Information Patient not taking.Reported on 03/28/2025 Timolol Maleate (Once-Daily) 0.5 % Ophthalmic Solution [...] as of this encounter (statuses as of 03/29/2025) Active Problems Problem Noted Date Diagnosed Date Coronary artery disease invo lving [place] coronary artery of [place] heart without angina pectoris 03/13/2018 HTN, goal below 140/90 03/13/2018 Dyslipidemia 03/13/2018 MGUS (monoclonal gammopathy of unknown significa nce) 03/13/2018 Status post total bilateral knee replacement 02/2018 Chronic otitis externa 07/20/2008 Sensorineural hearing loss, bilateral 10/19/2007 S/P CABG x 2 06/10/2007 documented as of this encounter (statuses as of 03/29/2025) Resolved Problems Problem Noted Date Diagnosed Date Resolved Date Impacted imann 09/11/2016 documented as of this encounter (statuses as of 03/29/2025) Immunizations Immunization Administration Dates Next Due COVID-19 mRNA, LNP-s, No Pre serve, 2-Dose Series (Moderna) 01/08/2021,12/03/2020 Seasonal Influenza, Quadrivalent Hd (Fluzone Hd) 07/28/2021 documented as of this encounter Social History Tobacco Use Types Packs/Day Years Used Date Smoking Tobacco: Never Smokeless Tobacco: Never Tobacco Cessation:Counseling Given: No Alcohol Use Standard Drinks/Week Comments Yes 0 (1 standard drink = 0.6 oz pur e alcohol) occasionally Sex and Gender Information Value Date Recorded Sex Assigned at Not on file Legal Sex Male 5:59 AM EST Gender Identity Not on file Sexual Orientation Not on file documented as of this encounter Last Filed Vital Signs Vital Sign Reading Time Taken Comments Blood Pressure 158/80 03/28/2025 1:55 PM EDT Pulse 48 03/28/2025 1:55 PM EDT Temperature 36.6 °C (97.8 °F) 03/28/2025 1:55 PM ED T Respiratory Rate 20 03/28/2025 1:55 PM EDT Oxygen Saturation 97% 03/28/2025 1:55 PM EDT Inhaled Oxygen Concentration - - Weight 93.6 kg (206 lb 6.4 oz) 03/28/2025 1:55 P M EDT Height 172.7 cm (5' 8") 03/28/2025 1:55 PM EDT Body Mass Index 31.38 03/28/2025 1:55 PM EDT documented in this encounter Patient Instructions * Patient Instructions* Cintia King CRNP - 03/28/2025 4:13 PM EDT You are being taken to the ER via 911 from the clinic Follow their care instructions Follow up with your PCP Follow up with your site interpreter documented in this encounter Progress Notes * Cintia King CRNP - 03/28/2025 2:32 PM EDT Convenient Care Basic Exam Harry Gtz is a 84 year old year old male who presents for evaluation of lightheadedness, high BP. Onset of symptoms was today. Currently the symptoms are still present, improving Severity of symptoms are moderate. Worsened by: exertion Relieved by: rest Context: became lightheaded at PT. PT checked BP and it was elevated to 160s Pt presents with for evaluation of lightheadedness. S/s began when pt was at PT. Became lightheaded. PT check BP and it was elevated to 160s. Recommended evaluation. Pt reports lightheadedness has improved. Denies fevers Denies CP, SOB, n/v/d Denies RANKIN, dizziness. Denies other associated s/s PMH HTN, heart failure ROS: See HPI PAST MEDICAL HISTORY: Past Medical History: Diagnosis Date CAD (coronary artery disease) Sensorineural hearing loss, bilateral 10/19/2007 Past Surgical History: Procedure Laterality Date ARTHROPLASTY KNEE TOTAL Bilateral INFORMATION 06/2007 cardiac bypass surgery MISCELLANEOUS ORDER ([facility] ONLY) Left 06/07/2015 Reinheimer-lateral tarsal strip REMOVAL OF TONSILS, AGE 12+ 1967 REMOVE CATARACT, INSERT LENS PROSTH Bilateral REPAIR INITIAL INGUINAL HERNIA REDUCIBLE AGE 5 OR MORE Social History Tobacco Use Smoking status: Never Smokeless tobacco: Never Substance Use Topics Alcohol use: Yes Comment: occasionally Vaping/E-Cigarette Use Vaping/E-Cigarette Use Never User Vaping/E-Cigarette Substances Vaping/E-Cigarette Devices Patient Active Problem List Diagnosis Sensorineural hearing loss, bilateral Chronic otitis externa Coronary artery disease involving [place] coronary artery of [place] heart without angina pectoris S/P CABG x 2 HTN, goal below 140/90 Dyslipidemia MGUS (monoclonal gammopathy of unknown significance) Status post total bilateral knee replacement Review of patient's allergies indicates: Allergen Reactions Lisinopril Cough Current Medications[1] Nursing Notes and Vital Signs reviewed. BP 158/80 | Pulse 48 | Temp 36.6 °C (97.8 °F) (Tympanic) | Resp 20 | Ht 1.727 m (5' 8") | Wt 93.6kg (206 lb 6.4 oz) | SpO2 97% | BMI 31.38 kg/m² | BSA 2.12 m² Physical Exam Constitutional: General: He is not in acute distress. Appearance: He is well-developed. HENT: Head: Normocephalic. Right Ear: Tympanic membrane and ear canal normal. Left Ear: Tympanic membrane, ear canal and external ear normal. Mouth/Throat: Mouth: Mucous membranes are moist. Pharynx: Oropharynx is clear. Eyes: Extraocular Movements: Extraocular movements intact. Pupils: Pupils are equal, round, and reactive to light. Cardiovascular: Rate and Rhythm: Regular rhythm. Bradycardia present. Heart sounds: Normal heart sounds. Pulmonary: Effort: Pulmonary effort is normal. No respiratory distress. Breath sounds: Normal breath sounds. No wheezing or rhonchi. Abdominal: General: Bowel sounds are normal. Palpations: Abdomen is soft. Musculoskeletal: Cervical back: Normal range of motion and neck supple. Skin: General: Skin is warm and dry. Neurological: General: No focal deficit present. Mental Status: He is alert and oriented to person, place, and time. GCS: GCS eye subscore is 4. GCS verbal subscore is 5. GCS motor subscore is 6. Cranial Nerves: Cranial nerves 2-12 are intact. Sensory: Sensation is intact. Motor: Motor function is intact. Coordination: Coordination is intact. I spent a total of 40-54 minutes (exact time 45 mins) on the date of service in preparation, delivery, and documentation of the care provided to Harry Gtz excluding any time spent in the performance of separately billed services or time spent by another provider/QHP. ASSESSMENT: Lightheadedness (Primary) - EKG - 3 POSITIONAL BLOOD PRESSURE - GLUCOSE METER, POINT OF CARE (ENTER/EDIT) HTN, goal below 140/90 - EKG - 3 POSITIONAL BLOOD PRESSURE Bradycardia First degree AV block CBG 90s EKG with bradycardia, first degree av block. Unable to review previous EKG. Review of records does not mention AV block. Orthostatics positive laying to sitting Given EKG changes and bradycardia, pt referred to ED for further evaluation and management EMS called Will got to [facility] ED per EMS NICKO Shrestha [facility] [address] [facility] [address] [1] Current Outpatient Medications Medication Sig Dispense Refill ATORVASTATIN CALCIUM 40 MG PO TABS Take by mouth. 3 NITROSTAT 0.4 MG SUBL 1 PREVIDENT 5000 SENSITIVE 1.1-5 % PSTE 5 amoxicillin (AMOXIL) 500 MG Capsule Take 4 capsules by mouth 1 hour prior to dental procedures 2 Myrbetriq 25 MG Oral Tablet Extended Release 24 Hour (Mirabegron ER) Take 1 Tablet by mouth in the morning. Tamsulosin HCl 0.4 MG Oral Capsule (Flomax) Solifenacin Succinate 5 MG Oral Tablet (VESIcare) Take 1 Tablet by mouth in the morning. carBAMazepine 200 MG Oral Tablet (Tegretol) in the morning and at noon and before bedtime. Valsartan 80 MG Oral Tablet (Diovan) Take 1 Tablet by mouth in the morning. Timolol Maleate (Once-Daily) 0.5 % Ophthalmic Solution (Istalol) Instill 1 Drop into both eyes in the morning and 1 Drop before bedtime. Metoprolol Succinate ER 25 MG Oral Tablet Extended Release 24 Hour (toPROL XL) Take 1 Tablet by mouth in the morning. Sacubitril-Valsartan 24-26 MG Oral Tablet (Entresto) Take 1 Tablet by mouth once. Fluticasone Propionate 50 MCG/ACT Nasal Suspension (Flonase) Administer 2 Sprays into each nostril in the morning and 2 Sprays before bedtime. 1 Each 0 Benzonatate 100 MG Oral Capsule Take 1 Capsule by mouth 3 times a day as needed for Cough. (Patientnot taking: Reported on 03/28/2025) 30 Capsule 1 No current facility-administered medications for this visit. documented in this encounter Nursing Notes * Gavin Nevarez CMA - 03/28/2025 1:50 PM EDT Harry Gtz is a 84 year old male who presents to walk-in clinic today complaining of Chief Complaint Patient presents with Dizziness Blood Pressure Check Brief history:pt is present with concern regarding blood pressure after having it checked at physical therapy. Pt states blood pressure was 168/? He does not remember Onset/duration: 1x day. OTC treatments tried:N/A Effectiveness: N/A Patient is accompanied by for today's visit. documented in this encounter Plan of Treatment Upcoming Encounters Date Type Department Care Team (Late st Contact Info) Description 05/17/2025 9:30 AM EDT Office Visit Otolaryngology [facility] [address] [place] [phone] Fatmata Navarrete PA-C [address] [place] [address] 08/17/2025 11:30 AM EDT Office Visit Otolaryngology [facility] [address] [place] [phone] Fatmata Navarrete PA-C [address] [place] [address] 10/10/2025 9:40 AM EST Office Visit Ophthalmology, [facility] [address] [place] [phone] Justin Tran T, DO [address] [place] [address] Scheduled Orders Name Type Priority Associated Diagnoses Orde r Schedule EKG EKG STAT Lightheadedness HTN, goal below 140/90 Ordered: 03/28/2025 3 POSITIONAL BLOOD PRESSURE Procedures Routine Lightheadedness HTN, goal below 140/90 Ordered: 03/28/2025 Health Maintenance Due Date Last Done Comments [...] Not on filedocumented as of this encounter Procedures Procedure Name Priority Date/Time Associated Diagnosis Comments GLUCOSE METER, POINT OF CARE (ENTER/EDIT) Routine 03/28/2025 2:44 PM EDT Lightheadedness documented in this encounter Results * GLUCOSE METER, POINT OF CARE (ENTER/EDIT) (03/28/2025 2:44 PM EDT) Glucose - POCT 98 70 - 120 mg/dL Blood 03/28/2025 2:44 PM EDT [facility] POINT OF CARE TEST ENTER/EDIT ORDERABLES Final Result documented in this encounter Visit Diagnoses Diagnosis Lightheadedness- Primary Dizziness and giddiness HTN, goal below 140/90 Unspecified essential hypertension Bradycardia Other specified cardiac dysrhythmias First degree AV block First degree atrioventricular block documented in this encounter Care Teams Tumbler Machine Operator Relationship Specialty Start Date End Date Jay Jay Shin DO [address] [place], [place] [address] [address] PCP - General Family Medicine 02/25/23 documented as of this encounter
--- NOTE | 2025-03-29 09:28 | Electrocardiogram Report ---
Test Reason : Blood Pressure : */* mmHG Vent. Rate : 77 BPM Atrial Rate : 77 BPM P-R Int : 286 ms QRS Dur : 94 ms QT Int : 402 ms P-R-T Axes : 34 -4 27 degrees QTcB Int : 454 ms Sinus rhythm with 1st degree A-V block Incomplete right bundle branch block Borderline ECG When compared with ECG of 05-Oct-2022 11:03, No significant change was found Confirmed by Silvestre Borrero ([id number]) on 03/29/2025 9:28:30 AM Referred By: REFERRED SELF Confirmed By: Silvestre Borrero
[2025-03-29] MEDS: METOPROLOL SUCC 25MG EXT REL TAB PO SCH (20:40)
--- NOTE | 2025-03-29 22:35 | Hospitalist Progress Note ---
Date of Service March 29, 2025 Assessment & Plan (1) Hypertensive urgency: (2) Trigeminal neuralgia: (3) S/P CABG (coronary artery bypass graft): Plan 84 year old presents to the ER with asymptomatic hypertensive urgency with mildly elevated troponin #Hypertensive urgency Increased troponin suspect related to this but asymptomatic, continue to repeat troponins overnight - not suspicious of ACS with lack of EKG changes or symptoms but if significantly increases may consider IV anti-hypertensives to bring BP under control quicker with the diagnosis of hypertensive emergency Possible cause was recent switch from Entresto to valsartan however reportedly B P previously controlled on current dose prior to recent switch to Entresto, alternatively he may not be taking the medication correctly as he appears mildly confused about some of his medications, alternatively increase BP secondary to pain from his trigeminal neuralgia which has recently been worse than usual Plan to continue usual metoprolol and valsartan Blood pressure has been slightly above goal. will monitor may consider adding low dose thiazide at discharge in AM. #Trigeminal neuralgia Continue carbamazepine 200mg PO QID controlled. #BPH / urinary incontinence Continue tamsulosin and solifenacin VTE Prophylaxis - low risk Diet - low Na, heart healthy Disposition - observation to med/tele Admission and Anticipated Discharge Date Admission Date: March 28, 2025 Subjective 84 yo male reports no new symptoms Review of Systems Review of Systems: All systems reviewed & are unremarkable except as noted in HPI & below Physical Exam Constitutional: WD/WN, vitals as above ENMT: external ear and nose normal, oropharynx normal Respiratory: normal respiratory effort, lungs clear to auscultation Cardiovascular: RRR, no murmur, no edema Gastrointestinal (Abdomen): normal bowel sounds, soft, nontender, no hepatosplenomegaly Skin: no rashes, warm and dry Neurologic: moves all extremities and awake; not confused Psychiatric: A+Ox3, euthymic affect Results & Data Results & Data Vital Signs (Past 12 Hours) Vital Signs Temp Pulse Resp BP Pulse Ox O2 Del Method 03/29/25 19:43 36.2 C L 55 L 20 137/80 96 Room Air 03/29/25 14:57 36.5 C 57 L 16 177/77 H 98 Room Air 03/29/25 12:26 55 L 22 154/71 H 96 Room Air PG Care Time/CCT Total # of Minutes Spent Total Time Spent with Patient: Total time spent is greater than 50% in coordination of care (as documented) at patient's floor/unit and/or counseling patient: Coding Level of Care Code 54671 SUB INP/OBS CARE 3/50MIN Diagnoses Hypertensive urgency I16.0 Trigeminal neuralgia G50.0 S/P CABG (coronary artery bypass graft) Z95.1
[2025-03-30 03:54] VITALS: TEMP 97.9
[2025-03-30 05:59] LABS: Hematocrit (blood only) 38.8 % (42.0-52.0); Hemoglobin 13.1 g/dl (14.0-18.0); Mean Corpuscular Hemoglobin 30.1 pg (25.0-34.0); Mean Corpuscular Hgb Conc 33.8 g/dL (32.0-36.0); Mean Corpuscular Volume 89.2 fL (80.0-100.0); Mean Platelet Volume 9.3 fL (9.4-12.4); Platelet Count 168 K/uL (130-400); RDW Coefficient of Variation 12.8 % (11.5-14.5); RDW Standard Deviation 41.8 fL (36.4-46.3); Red Blood Count 4.35 M/uL (4.70-6.10); White Blood Count 6.84 K/ul (4.8-10.8)
[2025-03-30 06:23] LABS: BUN Creatinine Ratio 21.5 (10-20); Calcium 8.3 mg/dl (8.6-10.3); Creatinine Clr Calc Pharmacy 62.8 ml/min; Potassium 3.9 mmol/L (3.5-5.1)
[2025-03-30 08:30] VITALS: BP 158/76; PULSE 58; RESP 17; O2SAT 96
--- NOTE | 2025-03-30 10:52 | Discharge Summary ---
Discharge Summary Date of Service March 30, 2025 Principal Dx & Hospital Course #1 = Principal Diagnosis (1) Hypertensive urgency: (2) Trigeminal neuralgia: (3) S/P CABG (coronary artery bypass graft): Plan 84 year old presents to the ER with asymptomatic hypertensive urgency with mildly elevated troponin #Hypertensive urgency Increased troponin suspect related to this but asymptomatic, continue to repeat troponins overnight - not suspicious of ACS with lack of EKG changes or symptoms but if significantly increases may consider IV anti-hypertensives to bring BP under control quicker with the diagnosis of hypertensive emergency Possible cause was recent switch from Entresto to valsartan however reportedly BP previously controlled on current dose prior to recent switch to Entresto, alternatively he may not be taking the medication correctly as he appears mildly confused about some of his medications, alternatively increase BP secondary to pain from his trigeminal neuralgia which has recently been worse than usual Plan to continue usual metoprolol and valsartan Blood pressure has been slightly above goal. will monitor may consider adding low dose thiazide at discharge in AM. #Trigeminal neuralgia Continue carbamazepine 200mg PO QID controlled. #BPH / urinary incontinence Continue tamsulosin and solifenacin VTE Prophylaxis - low risk Diet - low Na, heart healthy Disposition - observation to med/tele Admission HPI Per Admitting Provider Harry Gtz is an 84 year old male who presents to the ER with high blood pressure on advice of his physical therapist due to elevated blood pressure. He denies any acute symptoms but does not his trigeminal neuralgia has been worse this last week but otherwise feels at his baseline. He had switched from valsartan to Entresto but this proved too expensive and he switched back to valsartan about a month ago. He is unable to remember atorvastatin when going through his medications but reports he takes everything as prescribed although he does his medications on a daily basis without help of a pill pack. His trigeminal neuralgia has been worse for the last week and is still having this but more mild than last week. Discharge Plan Discharge Items Patient Disposition: Home - Self-Care Reason For Visit: HYPERTENSIVE URGENCY Discharge Diagnosis: hypertensive urgency Activity: Resume your previous activity Non-emergency contact: Primary Care Provider Call non-emergency contact if: you have any medication questions Follow-up/Referrals: Jay Jay Shin, [Primary Care Provider] - 04/07/25 11:00 am Diet: Heart Healthy Ambulatory Orders: Basic Metabolic Panel (Routine) Timeframe: 1 Week Location: Determined by Patient Ordered By: Ozzie Loco Attending Provider Instructions: Will recommend followup with PCP in 1-2 weeks. Will continue valsartan 80mg in the morning. We will also be adding hydrochlorothiazide in the morning. Will cut back on metoprolol to half a tablet in the evening.. Please get a pill cutter for this. Pending Studies at Discharge: No Stand-Alone Forms: [email or web address], Smoking Cessation Medications and DC Order Prescriptions: New hydrochlorothiazide 12.5 mg tablet 12.5 mg PO DAILY Qty: 30 0RF Continued nitroglycerin 0.4 mg tablet, sublingual 0.4 mg SL Q5M PRN (Reason: chest pain) Qty: 25 3RF Rx Instructions: NEEDED FOR CHEST PAIN : ONE TABLET UNDER THE TONGUE EVERY 5 MINUTES UP TO THREE DOSES. tamsulosin 0.4 mg capsule 0.4 mg PO DAILY Qty: 90 3RF solifenacin [Vesicare] 5 mg tablet 5 mg PO DAILY Qty: 90 1RF atorvastatin 40 mg tablet 40 mg PO DAILY Qty: 90 3RF aspirin 81 mg Tablet,Delayed Release (Dr/Ec) 81 mg PO QAM valsartan 80 mg tablet 80 mg PO QAM carbamazepine 200 mg tablet 200 mg PO QID Rx Instructions: PATIENT TAKES 200 MG BY MOUTH EVERY MORNING, AT LUNCH, AT SUPPER AND AT BEDTIME. Changed metoprolol succinate 25 mg tablet extended release 24 hr 12.5 mg PO HS Qty: 0 0RF Discharge Orders: Discharge Order (Routine); Ordered 03/30/25 Ordered By: Ozzie Knowles Admission Data Admit Date/Time: 03/28/25 20:17 Attending Provider: Ozzie Knowles Admit Provider: Taiwo Cuadra Primary Care Provider: Jay Jay Shin Other Providers: Taiwo Cuadra Other Interventions: Discharge Summary Assessment (RN) Last Done: 03/30/25 09:33 Hospital Stay Data Consultations 03/28/25 19:56 ED Decision to Admit Stat Pending Results Patient Have Any Pending Studies at Discharge: No Discharge Instructions Given to Patient (Per Discharging Provider) Will recommend followup with PCP in 1-2 weeks. Will continue valsartan 80mg in the morning. We will also be adding hydrochlorothiazide in the morning. Will cut back on metoprolol to half a tablet in the evening.. Please get a pill cutter for this. Coding Diagnoses Hypertensive urgency I16.0 Trigeminal neuralgia G50.0 S/P CABG (coronary artery bypass graft) Z95.1
== END 2025-03-30 11:45 | disposition home or self-care (01) ==
LOC: EDINP 15:41 → ED 15:41 → SUATTDRO 20:17 → 2N 03-29 02:12